=== PATIENT | male | born 1955 | race Caucasian/White ===

== ENCOUNTER 2018-11-30 12:01 | Inpatient (IN) | payer MEDICARE, SELFPAY ==
[2018-11-30] VITALS (8 sets, daily range): BP systolic 135–156; BP diastolic 61–81; PULSE 57–99; RESP 14–20; TEMP 36.4; O2SAT 99–100; BMI 16.9
[2018-11-30] MEDS: SODIUM CHLORIDE 0.9% 1,000 ML 1000 ML IV ×2 (12:38→13:22)
--- NOTE | 2018-11-30 12:46 | DI.RAD.S_ITS ---
PROCEDURE: XR CHEST 1V INDICATIONS: elevated Blood sugars TECHNIQUE: One view of the chest was acquired. COMPARISON: None. FINDINGS: Surgical changes and devices: Patient is status post median sternotomy and CABG. Lungs and pleura: No pleural effusions or pneumothorax. Lungs are clear. Mediastinum: Mediastinal contours appear normal. Heart size is normal. Bones and chest wall: No suspicious bony lesions. Overlying soft tissues appear unremarkable. IMPRESSION: No acute cardiopulmonary findings. Dictated by: Traci Marques M.D. on 11/30/2018 at 13:33 Approved by: Traci Marques M.D. on 11/30/2018 at 13:34
--- NOTE | 2018-11-30 12:52 | ED.GENADULT ---
HPI - General Adult General Chief complaint: Diabetic Problem Stated complaint: Issues with diabetes/levels Time Seen by Provider: 11/30/18 12:46 Source: patient and family () Mode of arrival: EMS Limitations: no limitations History of Present Illness HPI narrative: This is a 63-year-old male comes to the emergency department with complaint of elevated blood sugars. Patient has had weight loss pretty significantly over the last year. He has had elevated blood sugars at home he states often in the 300s. He had a dental infection with seen started on antibiotics and dexamethasone about 3 days ago. Since then his sugars have been more like 600. Patient states he does not check regularly but has been checking in the last week and they noted they were quite high. Patient has not had any fevers, he states the pain in the dental area has improved after a couple days of antibiotics and feels much better. He denies any chest pain, no shortness of breath. He denies any nausea or vomiting, he denies any diarrhea or constipation. He has been having frequent large amounts of urine. Patient is only taking metformin daily. His primary care physician was Dr. Patel through Sunday. He did also have some esophageal polyps or masses which were removed by EGD in [place] in the last 6 months. They state that that helped with choking and swallowing issues. They were found to be benign on pathology. Patient smokes daily, he drinks 2-3 alcoholic drinks daily. He denies any illicit. They were living in [place] but are currently living on a boat here in the local [place]. Related Data Home Medications Medication Instructions Recorded Confirmed aspirin [Aspir-81] 81 mg PO DAILY 11/30/18 11/30/18 atorvastatin 40 mg PO DAILY 11/30/18 11/30/18 clindamycin HCl 300 mg PO QID 11/30/18 11/30/18 dexamethasone 8 mg PO DAILY 11/30/18 11/30/18 hydrocodone-acetaminophen 1 tab PO Q6HR PRN 11/30/18 11/30/18 iron, carbonyl [Iron Chews] 30 mg PO DAILY 11/30/18 11/30/18 metformin 500 mg PO BID 11/30/18 11/30/18 Allergies Allergy/AdvReac Type Severity Reaction Status Date / Time Penicillins Allergy Intermediate Hives Verified 11/30/18 12:14 Review of Systems Review of Systems All systems reviewed & are unremarkable except as noted in HPI and below Constitutional Denies chills, Denies fever(s), Denies lethargy and Reports weakness ENT Ears, Nose, Mouth, and Throat: Reports dental pain (Improved) Cardiovascular Denies chest pain, Denies irregular heart rhythm, Denies lightheadedness, Denies palpitations, Denies dyspnea, Denies dyspnea on exertion and Denies orthopnea Respiratory Denies cough, Denies excessive phlegm production, Denies pain on inspiration, Denies pain with cough, Denies dyspnea, Denies dyspnea on exertion and Denies wheezing Gastrointestinal Gastrointestinal: Denies abdominal pain, Denies change in bowel habits, Denies diarrhea, Denies nausea and Denies vomiting Genitourinary Denies difficulty urinating, Denies dysuria, Reports urinary frequency, Denies urinary hesitancy and Denies urinary urgency Integumentary/Breasts Denies rash Neurologic Reports weakness Endocrine Reports as per HPI, Reports change in body appearance (large weight loss), Reports polyuria and Denies palpitations Allergic/Immunologic Denies wheezing PFSH Medical History Coronary artery disease (Acute) Diabetes (Acute) Esophageal polyp (Acute) High cholesterol (Acute) Iron deficiency anemia (Acute) Surgical History Hx of CABG (Acute) Stented coronary artery (Acute) Family History Mother No problems noted. Father No problems noted. Brother No problems noted. Sister No problems noted. Social History household members: spouse Smoking Status: Current every day smoker alcohol intake: current substance use type: does not use Exam Narrative Exam Narrative: GENERAL: Alert and oriented x three, elderly male, appears older than stated age. HEENT: Head normocephalic, atraumatic, EOMI, pupils reactive, face symmetric, moist mucous membranes, NECK: Supple, full range of motion CARDIOVASCULAR: Regular rate and rhythm without murmurs, rubs or gallops. RESPIRATORY: Breath sounds equal bilaterally, no wheezes rales or rhonchi. ABDOMEN: Soft, nontender. Nondistended. Normoactive bowel sounds all 4 quadrants. No guarding or rebound, rigidity, no mass : No CVA tenderness EXTREMITIES: Normal range of motion, no clubbing or edema. Neurovascularly intact NEUROLOGICAL: Cranial nerves II through XII grossly intact. Moving all extremities SKIN: Warm, dry, no petechiae, no rashes or lesions. Initial Vital Signs Initial Vital Signs: Vital Signs Temperature 97.6 F 11/30/18 12:08 Pulse Rate 84 11/30/18 12:08 Respiratory Rate 14 11/30/18 12:08 Blood Pressure 144/81 H 11/30/18 12:08 Pulse Oximetry 100 11/30/18 12:08 Course Orders Ordered: ED Orders 11/30/18 12:35 Venous Blood Gas Stat 11/30/18 12:40 Complete Blood Count AUTO DIFF Stat Comprehensive Metabolic Panel Stat Ketones (Beta-Hydroxybutyrate) Stat 11/30/18 12:45 Hemoglobin A1C % Stat 11/30/18 12:46 XR chest 1V Stat EKG-12 Lead Stat 11/30/18 13:00 Lactate (Lactic Acid) Stat 11/30/18 14:30 Arterial Blood Gas Stat 11/30/18 16:32 Education, smoking cessation ONGOING 11/30/18 16:51 Consult to Dietitian, Adult Routine Consult to Tool Clerk Routine 11/30/18 17:00 Basic Metabolic Panel Stat Magnesium Stat Phosphorous Stat Vitamin B12 Routine Acetaminophen (Tylenol) 650 mg PO Q6HR PRN PRN Reason: As Needed for Fever/Mild Pain Hydrocodone Bitart/Acetaminophen ([place] 5/325) 1 tab PO Q6H PRN PRN Reason: DENTAL PAIN Al Hydrox/Mg Hydrox/Simethicone (Maalox Plus) 30 ml PO Q6HR PRN PRN Reason: Dyspepsia Aspirin (Aspirin Ec) 81 mg PO DAILY JORGE L Atorvastatin Calcium (Lipitor) 40 mg PO DAILY [facility] Dextrose (D50w) 25 gm IV PRN PRN; Protocol PRN Reason: Hypoglycemia Heparin Sodium (Porcine) (Heparin) 5,000 unit SUBCUT BID [facility] Sodium Chloride (Normal Saline 0.9%) 1,000 mls @ 200 mls/hr IV CONT JORGE L Last Admin: 11/30/18 17:18 Dose: 200 mls/hr Cefotetan Disodium/Dextrose (Cefotan) 2 gm in 50 mls @ 100 mls/hr IV Q12H JORGE L Stop: 12/03/18 17:59 Insulin Aspart (Novolog Flexpen) 0 unit SUBCUT Q6H JORGE L; Protocol Last Admin: 11/30/18 17:18 Dose: 10 unit Insulin Glargine (Lantus Solostar (Pen)) 10 unit SUBCUT BEDTIME JORGE L Magnesium Hydroxide (Milk Of Magnesia) 30 ml PO DAILY PRN PRN Reason: Constipation Non-Formulary Medication (Iron, Carbonyl [Iron Chews]) 30 mg PO DAILY [facility] Ondansetron HCl (Zofran Odt) 4 mg PO Q8HR PRN PRN Reason: Nausea And Vomiting Last Admin: 11/30/18 17:18 Dose: 4 mg Sennosides (Senna) 17.2 mg PO BEDTIME PRN PRN Reason: Constipation Discontinued Medications Clindamycin HCl (Cleocin) 300 mg PO QID [facility] Last Admin: 11/30/18 17:17 Dose: 300 mg Heparin Sodium (Porcine) (Heparin) 5,000 unit SUBCUT Q8HR JORGE L Sodium Chloride (Normal Saline 0.9%) 1,000 mls @ 1,000 mls/hr IV BOLUS ONE Stop: 11/30/18 13:36 Last Infusion: 11/30/18 13:22 Dose: 0 mls/hr Admin: 11/30/18 12:38 Dose: 1,000 mls/hr Sodium Chloride (Normal Saline 0.9%) 1,000 mls @ 1,000 mls/hr IV BOLUS ONE Stop: 11/30/18 13:45 Last Infusion: 11/30/18 14:55 Dose: 0 mls/hr Admin: 11/30/18 13:22 Dose: 1,000 mls/hr Insulin Human Regular 100 unit (/ Sodium Chloride) 100 mls @ 6 mls/hr IV TITRATE JORGE L; Protocol Last Admin: 11/30/18 16:12 Dose: Sodium Chloride (Normal Saline 0.9%) 1,000 mls @ 200 mls/hr IV CONT JORGE L Last Infusion: 11/30/18 16:12 Dose: 0 mls/hr Admin: 11/30/18 14:57 Dose: 200 mls/hr Insulin Human Regular (Humulin R) 10 unit IV NOW ONE Stop: 11/30/18 14:32 Last Admin: 11/30/18 14:54 Dose: 10 unit Vital Signs - 8 hr 11/30/18 12:08 11/30/18 12:40 11/30/18 13:30 Temperature 97.6 F Pulse Rate 84 78 72 Respiratory Rate 14 18 Blood Pressure 144/81 H Blood Pressure [Right Arm] 143/73 H 138/66 Pulse Oximetry 100 100 100 11/30/18 14:30 11/30/18 15:00 11/30/18 15:30 Temperature Pulse Rate 60 75 99 H Respiratory Rate Blood Pressure Blood Pressure [Right Arm] 152/61 H 153/65 H 135/67 Pulse Oximetry 100 100 100 11/30/18 16:02 Temperature Pulse Rate 76 Respiratory Rate 20 Blood Pressure Blood Pressure [Right Arm] 156/75 H Pulse Oximetry 99 Medical Decision Making Lab Data Lab results reviewed: Yes I reviewed the patient's lab results. Result diagrams: 11/30/18 12:40 11/30/18 17:00 Lab Results 11/30/18 11/30/18 11/30/18 Range/Units 12:35 12:40 12:40 WBC 8.9 (4.5-11.0) X10^3/uL RBC 3.79 L (4.5-5.9) X10^6/uL Hgb 12.6 L (13.5-17.5) g/dL Hct 38.2 L (41-53) % MCV 100.9 H (80-100) fL MCH 33.2 (26-34) PG MCHC 33.0 (30-36) % RDW 12.8 (11.6-14.8) % Plt Count 276 (150-400) X10^3/uL Neut % (Auto) 87.0 H (50-75) % Lymph % (Auto) 7.4 L (25-40) % [place] % (Auto) 5.4 (3-14) % Eos % (Auto) 0.0 L (2-4) % Baso % (Auto) 0.2 (0-2) % Neut # (Auto) 7700 H (2043-7458) /uL VBG pH 7.16 L* (7.33-7.43) VBG pCO2 27.2 L (45-50) mmHg VBG pO2 32 L (35-45) mmHg VBG HCO3 10 L (23-28) mmol/L VBG Total CO2 11 L (24-29) mmol/L VBG O2 Saturation 48 L (70-75) % VBG Base Excess -19.0 L (0-4) mmol/L Sodium 132 L (137-145) mmol/L Potassium 5.5 H (3.4-5.1) mmol/L Chloride 94 L (98-107) mmol/L Carbon Dioxide 10 L (22-32) mmol/L BUN 56 H (9-20) mg/dL Creatinine 1.10 (0.66-1.25) mg/dL Estimated GFR > 60.0 (>60) mL/min BUN/Creatinine Ratio 50.9 H (6-22) Glucose 577 H* (80-110) mg/dL Hemoglobin A1c (4.0-6.0) % Lactate (0.7-2.1) mmol/L Calcium 9.7 (8.4-10.2) mg/dL Phosphorus (2.3-3.7) mg/dL Magnesium (1.6-2.3) mg/dL Total Bilirubin 0.6 (0.2-1.3) mg/dL AST 18 (17-59) IU/L ALT 22 (21-72) IU/L Alkaline Phosphatase 94 (38-126) U/L Total Protein 7.7 (6.3-8.2) g/dL Albumin 4.7 (3.5-5.0) g/dL Globulin 3.0 (1.7-4.1) g/dL Albumin/Globulin Ratio 1.6 (1.0-2.8) Ketones 9.62 H (<0.27) mmol/L 11/30/18 11/30/18 11/30/18 Range/Units 12:45 13:00 17:00 WBC (4.5-11.0) X10^3/uL RBC (4.5-5.9) X10^6/uL Hgb (13.5-17.5) g/dL Hct (41-53) % MCV (80-100) fL MCH (26-34) PG MCHC (30-36) % RDW (11.6-14.8) % Plt Count (150-400) X10^3/uL Neut % (Auto) (50-75) % Lymph % (Auto) (25-40) % [place] % (Auto) (3-14) % Eos % (Auto) (2-4) % Baso % (Auto) (0-2) % Neut # (Auto) (7503-8007) /uL VBG pH (7.33-7.43) VBG pCO2 (45-50) mmHg VBG pO2 (35-45) mmHg VBG HCO3 (23-28) mmol/L VBG Total CO2 (24-29) mmol/L VBG O2 Saturation (70-75) % VBG Base Excess (0-4) mmol/L Sodium 135 L (137-145) mmol/L Potassium 4.9 (3.4-5.1) mmol/L Chloride 101 (98-107) mmol/L Carbon Dioxide 11 L (22-32) mmol/L BUN 51 H (9-20) mg/dL Creatinine 0.90 (0.66-1.25) mg/dL Estimated GFR > 60.0 (>60) mL/min BUN/Creatinine Ratio 56.7 H (6-22) Glucose 369 H D (80-110) mg/dL Hemoglobin A1c 13.8 H (4.0-6.0) % Lactate 1.2 (0.7-2.1) mmol/L Calcium 9.1 (8.4-10.2) mg/dL Phosphorus 4.9 H (2.3-3.7) mg/dL Magnesium 2.1 (1.6-2.3) mg/dL Total Bilirubin (0.2-1.3) mg/dL AST (17-59) IU/L ALT (21-72) IU/L Alkaline Phosphatase (38-126) U/L Total Protein (6.3-8.2) g/dL Albumin (3.5-5.0) g/dL Globulin (1.7-4.1) g/dL Albumin/Globulin Ratio (1.0-2.8) Ketones (<0.27) mmol/L Point of Care Testing Glucose POC 342 Point of care testing: Point of Care Testing Glucose POC 342 Imaging Data Chest x-ray: Radiologist's impression: [address] [address] XRay Report Signed Patient: Klever Emmanuel MR#: [id number] : 1955 Acct:[id number] Age/Sex: 63 / M Date of Service: 11/30/18 Loc: ED Accession Number: [id number] Procedure: XR chest 1V Ordering Provider: Anais Toro D.O. PROCEDURE: XR CHEST 1V INDICATIONS: elevated Blood sugars TECHNIQUE: One view of the chest was acquired. COMPARISON: None. FINDINGS: Surgical changes and devices: Patient is status post median sternotomy and CABG. Lungs and pleura: No pleural effusions or pneumothorax. Lungs are clear. Mediastinum: Mediastinal contours appear normal. Heart size is normal. Bones and chest wall: No suspicious bony lesions. Overlying soft tissues appear unremarkable. IMPRESSION: No acute cardiopulmonary findings. Dictated by: Traci Marques M.D. on 11/30/2018 at 13:33 Approved by: Traci Marques M.D. on 11/30/2018 at 13:34 ECG Data Attestation: I personally reviewed and interpreted this ECG as follows: Interpretation: Sinus rhythm with a ventricular rate of 72 P are interval 170 QRS of 89 and QTC of 423. No ST elevation depression noted. MDM Narrative Medical decision making narrative: Patient's point of care urine is still pending. Suspects that he is typically hyperglycemic but was started on 8 mg of dexamethasone daily 3 days ago and this likely pushed him into worsening his hyperglycemia. Technically he does be DKA criteria pH is 7.1 on VBG, patient has an anion gap of 28, his bicarb is 10 with a blood sugar in the 500s. After 2 L patient's repeat blood sugar is 454. He has not urinated yet. Patient's chest x-ray is negative, the rest of his lab work does not show an elevated white count and his dental infection seems to be improving spoke with Dr. akhtar from hospitalist service she would like instead of starting an insulin drip to do 10 units of insulin regular IV put patient on the floor and monitor and treat as a floor patient. Discharge Plan Departure Patient Disposition: Admitted as Observation Clinical Impression: DKA (diabetic ketoacidoses) Discharge Date/Time: 11/30/18 16:08 Interventions: ED Discharge Assessment Last Done: 11/30/18 16:08 Admit Date/Time: 11/30/18 14:46 Admit Provider: Chantal Burrell
--- NOTE | 2018-11-30 13:06 | ED_ITS ---
HPI - General Adult General Chief complaint: Diabetic Problem Stated complaint: Issues with diabetes/levels Time Seen by Provider: 11/30/18 12:46 Source: patient and family () Mode of arrival: EMS Limitations: no limitations History of Present Illness HPI narrative: This is a 63-year-old male comes to the emergency department with complaint of elevated blood sugars. Patient has had weight loss pretty significantly over the last year. He has had elevated blood sugars at home he states often in the 300s. He had a dental infection with seen started on antibiotics and dexamethasone about 3 days ago. Since then his sugars have been more like 600. Patient states he does not check regularly but has been checking in the last week and they noted they were quite high. Patient has not had any fevers, he states the pain in the dental area has improved after a couple days of antibiotics and feels much better. He denies any chest pain, no shortness of breath. He denies any nausea or vomiting, he denies any diarrhea or constipation. He has been having frequent large amounts of urine. Patient is only taking metformin daily. His primary care physician was Dr. Patel through Sunday. He did also have some esophageal polyps or masses which were removed by EGD in [place] in the last 6 months. They state that that helped with choking and swallowing issues. They were found to be benign on pathology. Patient smokes daily, he drinks 2-3 alcoholic drinks daily. He denies any illicit. They were living in [place] but are currently living on a boat here in the local [place]. Related Data Home Medications Medication Instructions Recorded Confirmed aspirin [Aspir-81] 81 mg PO DAILY 11/30/18 11/30/18 atorvastatin 40 mg PO DAILY 11/30/18 11/30/18 clindamycin HCl 300 mg PO QID 11/30/18 11/30/18 dexamethasone 8 mg PO DAILY 11/30/18 11/30/18 hydrocodone-acetaminophen 1 tab PO Q6HR PRN 11/30/18 11/30/18 iron, carbonyl [Iron Chews] 30 mg PO DAILY 11/30/18 11/30/18 metformin 500 mg PO BID 11/30/18 11/30/18 Allergies Allergy/AdvReac Type Severity Reaction Status Date / Time Penicillins Allergy Intermediate Hives Verified 11/30/18 12:14 Review of Systems Review of Systems All systems reviewed & are unremarkable except as noted in HPI and below Constitutional Denies chills, Denies fever(s), Denies lethargy and Reports weakness ENT Ears, Nose, Mouth, and Throat: Reports dental pain (Improved) Cardiovascular Denies chest pain, Denies irregular heart rhythm, Denies lightheadedness, Denies palpitations, Denies dyspnea, Denies dyspnea on exertion and Denies orthopnea Respiratory Denies cough, Denies excessive phlegm production, Denies pain on inspiration, Denies pain with cough, Denies dyspnea, Denies dyspnea on exertion and Denies wheezing Gastrointestinal Gastrointestinal: Denies abdominal pain, Denies change in bowel habits, Denies diarrhea, Denies nausea and Denies vomiting Genitourinary Denies difficulty urinating, Denies dysuria, Reports urinary frequency, Denies urinary hesitancy and Denies urinary urgency Integumentary/Breasts Denies rash Neurologic Reports weakness Endocrine Reports as per HPI, Reports change in body appearance (large weight loss), Reports polyuria and Denies palpitations Allergic/Immunologic Denies wheezing PFSH Medical History Coronary artery disease (Acute) Diabetes (Acute) Esophageal polyp (Acute) High cholesterol (Acute) Iron deficiency anemia (Acute) Surgical History Hx of CABG (Acute) Stented coronary artery (Acute) Family History Mother No problems noted. Father No problems noted. Brother No problems noted. Sister No problems noted. Social History household members: spouse Smoking Status: Current every day smoker alcohol intake: current substance use type: does not use Exam Narrative Exam Narrative: GENERAL: Alert and oriented x three, elderly male, appears older than stated age. HEENT: Head normocephalic, atraumatic, EOMI, pupils reactive, face symmetric, moist mucous membranes, NECK: Supple, full range of motion CARDIOVASCULAR: Regular rate and rhythm without murmurs, rubs or gallops. RESPIRATORY: Breath sounds equal bilaterally, no wheezes rales or rhonchi. ABDOMEN: Soft, nontender. Nondistended. Normoactive bowel sounds all 4 quadrants. No guarding or rebound, rigidity, no mass : No CVA tenderness EXTREMITIES: Normal range of motion, no clubbing or edema. Neurovascularly intact NEUROLOGICAL: Cranial nerves II through XII grossly intact. Moving all extremities SKIN: Warm, dry, no petechiae, no rashes or lesions. Initial Vital Signs Initial Vital Signs: Vital Signs Temperature 97.6 F 11/30/18 12:08 Pulse Rate 84 11/30/18 12:08 Respiratory Rate 14 11/30/18 12:08 Blood Pressure 144/81 H 11/30/18 12:08 Pulse Oximetry 100 11/30/18 12:08 Course Orders Ordered: ED Orders 11/30/18 12:35 Venous Blood Gas Stat 11/30/18 12:40 Complete Blood Count AUTO DIFF Stat Comprehensive Metabolic Panel Stat Ketones (Beta-Hydroxybutyrate) Stat 11/30/18 12:45 Hemoglobin A1C % Stat 11/30/18 12:46 XR chest 1V Stat EKG-12 Lead Stat 11/30/18 13:00 Lactate (Lactic Acid) Stat 11/30/18 14:30 Arterial Blood Gas Stat 11/30/18 16:32 Education, smoking cessation ONGOING 11/30/18 16:51 Consult to Dietitian, Adult Routine Consult to [place] Routine 11/30/18 17:00 Basic Metabolic Panel Stat Magnesium Stat Phosphorous Stat Vitamin B12 Routine Acetaminophen (Tylenol) 650 mg PO Q6HR PRN PRN Reason: As Needed for Fever/Mild Pain Hydrocodone Bitart/Acetaminophen ([place] 5/325) 1 tab PO Q6H PRN PRN Reason: DENTAL PAIN Al Hydrox/Mg Hydrox/Simethicone (Maalox Plus) 30 ml PO Q6HR PRN PRN Reason: Dyspepsia Aspirin (Aspirin Ec) 81 mg PO DAILY JORGE L Atorvastatin Calcium (Lipitor) 40 mg PO DAILY [facility] Dextrose (D50w) 25 gm IV PRN PRN; Protocol PRN Reason: Hypoglycemia Heparin Sodium (Porcine) (Heparin) 5,000 unit SUBCUT BID [facility] Sodium Chloride (Normal Saline 0.9%) 1,000 mls @ 200 mls/hr IV CONT JORGE L Last Admin: 11/30/18 17:18 Dose: 200 mls/hr Cefotetan Disodium/Dextrose (Cefotan) 2 gm in 50 mls @ 100 mls/hr IV Q12H JORGE L Stop: 12/03/18 17:59 Insulin Aspart (Novolog Flexpen) 0 unit SUBCUT Q6H JORGE L; Protocol Last Admin: 11/30/18 17:18 Dose: 10 unit Insulin Glargine (Lantus Solostar (Pen)) 10 unit SUBCUT BEDTIME JORGE L Magnesium Hydroxide (Milk Of Magnesia) 30 ml PO DAILY PRN PRN Reason: Constipation Non-Formulary Medication (Iron, Carbonyl [Iron Chews]) 30 mg PO DAILY [facility] Ondansetron HCl (Zofran Odt) 4 mg PO Q8HR PRN PRN Reason: Nausea And Vomiting Last Admin: 11/30/18 17:18 Dose: 4 mg Sennosides (Senna) 17.2 mg PO BEDTIME PRN PRN Reason: Constipation Discontinued Medications Clindamycin HCl (Cleocin) 300 mg PO QID [facility] Last Admin: 11/30/18 17:17 Dose: 300 mg Heparin Sodium (Porcine) (Heparin) 5,000 unit SUBCUT Q8HR JORGE L Sodium Chloride (Normal Saline 0.9%) 1,000 mls @ 1,000 mls/hr IV BOLUS ONE Stop: 11/30/18 13:36 Last Infusion: 11/30/18 13:22 Dose: 0 mls/hr Admin: 11/30/18 12:38 Dose: 1,000 mls/hr Sodium Chloride (Normal Saline 0.9%) 1,000 mls @ 1,000 mls/hr IV BOLUS ONE Stop: 11/30/18 13:45 Last Infusion: 11/30/18 14:55 Dose: 0 mls/hr Admin: 11/30/18 13:22 Dose: 1,000 mls/hr Insulin Human Regular 100 unit (/ Sodium Chloride) 100 mls @ 6 mls/hr IV TITRATE JORGE L; Protocol Last Admin: 11/30/18 16:12 Dose: Sodium Chloride (Normal Saline 0.9%) 1,000 mls @ 200 mls/hr IV CONT JORGE L Last Infusion: 11/30/18 16:12 Dose: 0 mls/hr Admin: 11/30/18 14:57 Dose: 200 mls/hr Insulin Human Regular (Humulin R) 10 unit IV NOW ONE Stop: 11/30/18 14:32 Last Admin: 11/30/18 14:54 Dose: 10 unit Vital Signs - 8 hr 11/30/18 12:08 11/30/18 12:40 11/30/18 13:30 Temperature 97.6 F Pulse Rate 84 78 72 Respiratory Rate 14 18 Blood Pressure 144/81 H Blood Pressure [Right Arm] 143/73 H 138/66 Pulse Oximetry 100 100 100 11/30/18 14:30 11/30/18 15:00 11/30/18 15:30 Temperature Pulse Rate 60 75 99 H Respiratory Rate Blood Pressure Blood Pressure [Right Arm] 152/61 H 153/65 H 135/67 Pulse Oximetry 100 100 100 11/30/18 16:02 Temperature Pulse Rate 76 Respiratory Rate 20 Blood Pressure Blood Pressure [Right Arm] 156/75 H Pulse Oximetry 99 Medical Decision Making Lab Data Lab results reviewed: Yes I reviewed the patient's lab results. Result diagrams: 11/30/18 12:40 11/30/18 17:00 Lab Results 11/30/18 11/30/18 11/30/18 Range/Units 12:35 12:40 12:40 WBC 8.9 (4.5-11.0) X10^3/uL RBC 3.79 L (4.5-5.9) X10^6/uL Hgb 12.6 L (13.5-17.5) g/dL Hct 38.2 L (41-53) % MCV 100.9 H (80-100) fL MCH 33.2 (26-34) PG MCHC 33.0 (30-36) % RDW 12.8 (11.6-14.8) % Plt Count 276 (150-400) X10^3/uL Neut % (Auto) 87.0 H (50-75) % Lymph % (Auto) 7.4 L (25-40) % [place] % (Auto) 5.4 (3-14) % Eos % (Auto) 0.0 L (2-4) % Baso % (Auto) 0.2 (0-2) % Neut # (Auto) 7700 H (3839-8851) /uL VBG pH 7.16 L* (7.33-7.43) VBG pCO2 27.2 L (45-50) mmHg VBG pO2 32 L (35-45) mmHg VBG HCO3 10 L (23-28) mmol/L VBG Total CO2 11 L (24-29) mmol/L VBG O2 Saturation 48 L (70-75) % VBG Base Excess -19.0 L (0-4) mmol/L Sodium 132 L (137-145) mmol/L Potassium 5.5 H (3.4-5.1) mmol/L Chloride 94 L (98-107) mmol/L Carbon Dioxide 10 L (22-32) mmol/L BUN 56 H (9-20) mg/dL Creatinine 1.10 (0.66-1.25) mg/dL Estimated GFR > 60.0 (>60) mL/min BUN/Creatinine Ratio 50.9 H (6-22) Glucose 577 H* (80-110) mg/dL Hemoglobin A1c (4.0-6.0) % Lactate (0.7-2.1) mmol/L Calcium 9.7 (8.4-10.2) mg/dL Phosphorus (2.3-3.7) mg/dL Magnesium (1.6-2.3) mg/dL Total Bilirubin 0.6 (0.2-1.3) mg/dL AST 18 (17-59) IU/L ALT 22 (21-72) IU/L Alkaline Phosphatase 94 (38-126) U/L Total Protein 7.7 (6.3-8.2) g/dL Albumin 4.7 (3.5-5.0) g/dL Globulin 3.0 (1.7-4.1) g/dL Albumin/Globulin Ratio 1.6 (1.0-2.8) Ketones 9.62 H (<0.27) mmol/L 11/30/18 11/30/18 11/30/18 Range/Units 12:45 13:00 17:00 WBC (4.5-11.0) X10^3/uL RBC (4.5-5.9) X10^6/uL Hgb (13.5-17.5) g/dL Hct (41-53) % MCV (80-100) fL MCH (26-34) PG MCHC (30-36) % RDW (11.6-14.8) % Plt Count (150-400) X10^3/uL Neut % (Auto) (50-75) % Lymph % (Auto) (25-40) % [place] % (Auto) (3-14) % Eos % (Auto) (2-4) % Baso % (Auto) (0-2) % Neut # (Auto) (0884-4506) /uL VBG pH (7.33-7.43) VBG pCO2 (45-50) mmHg VBG pO2 (35-45) mmHg VBG HCO3 (23-28) mmol/L VBG Total CO2 (24-29) mmol/L VBG O2 Saturation (70-75) % VBG Base Excess (0-4) mmol/L Sodium 135 L (137-145) mmol/L Potassium 4.9 (3.4-5.1) mmol/L Chloride 101 (98-107) mmol/L Carbon Dioxide 11 L (22-32) mmol/L BUN 51 H (9-20) mg/dL Creatinine 0.90 (0.66-1.25) mg/dL Estimated GFR > 60.0 (>60) mL/min BUN/Creatinine Ratio 56.7 H (6-22) Glucose 369 H D (80-110) mg/dL Hemoglobin A1c 13.8 H (4.0-6.0) % Lactate 1.2 (0.7-2.1) mmol/L Calcium 9.1 (8.4-10.2) mg/dL Phosphorus 4.9 H (2.3-3.7) mg/dL Magnesium 2.1 (1.6-2.3) mg/dL Total Bilirubin (0.2-1.3) mg/dL AST (17-59) IU/L ALT (21-72) IU/L Alkaline Phosphatase (38-126) U/L Total Protein (6.3-8.2) g/dL Albumin (3.5-5.0) g/dL Globulin (1.7-4.1) g/dL Albumin/Globulin Ratio (1.0-2.8) Ketones (<0.27) mmol/L Point of Care Testing Glucose POC 342 Point of care testing: Point of Care Testing Glucose POC 342 Imaging Data Chest x-ray: Radiologist's impression: [address] [address] XRay Report Signed Patient: Klever Emmanuel MR#: [id number] : 1955 Acct:[id number] Age/Sex: 63 / M Date of Service: 11/30/18 Loc: ED Accession Number: [id number] Procedure: XR chest 1V Ordering Provider: Anais Toro D.O. PROCEDURE: XR CHEST 1V INDICATIONS: elevated Blood sugars TECHNIQUE: One view of the chest was acquired. COMPARISON: None. FINDINGS: Surgical changes and devices: Patient is status post median sternotomy and CABG. Lungs and pleura: No pleural effusions or pneumothorax. Lungs are clear. Mediastinum: Mediastinal contours appear normal. Heart size is normal. Bones and chest wall: No suspicious bony lesions. Overlying soft tissues appear unremarkable. IMPRESSION: No acute cardiopulmonary findings. Dictated by: Traci Marques M.D. on 11/30/2018 at 13:33 Approved by: Traci Marques M.D. on 11/30/2018 at 13:34 ECG Data Attestation: I personally reviewed and interpreted this ECG as follows: Interpretation: Sinus rhythm with a ventricular rate of 72 P are interval 170 QRS of 89 and QTC of 423. No ST elevation depression noted. MDM Narrative Medical decision making narrative: Patient's point of care urine is still pending. Suspects that he is typically hyperglycemic but was started on 8 mg of dexamethasone daily 3 days ago and this likely pushed him into worsening his hyperglycemia. Technically he does be DKA criteria pH is 7.1 on VBG, patient has an anion gap of 28, his bicarb is 10 with a blood sugar in the 500s. After 2 L patient's repeat blood sugar is 454. He has not urinated yet. Patient's chest x-ray is negative, the rest of his lab work does not show an elevated white count and his dental infection seems to be improving spoke with Dr. akhtar from hospitalist service she would like instead of starting an insulin drip to do 10 units of insulin regular IV put patient on the floor and monitor and treat as a floor patient. Discharge Plan Departure Patient Disposition: Admitted as Observation Clinical Impression: DKA (diabetic ketoacidoses) Discharge Date/Time: 11/30/18 16:08 Interventions: ED Discharge Assessment Last Done: 11/30/18 16:08 Admit Date/Time: 11/30/18 14:46 Admit Provider: Chantal Burrell
[2018-11-30 13:21] LABS: Add Manual Diff / Slide Review NO; Basophils Percent Auto 0.2 % (0-2); Hematocrit 38.2 % (41-53); Hemoglobin 12.6 g/dL (13.5-17.5); Lymphocytes Percent Auto 7.4 % (25-40); Mean Corpuscular Hemoglobin 33.2 PG (26-34); Mean Corpuscular Volume 100.9 fL (80-100); Monocytes Percent Auto 5.4 % (3-14); Neutrophils Absolute Auto 7700 /uL (1500-7000); Platelet Count 276 X10^3/uL (150-400); Red Blood Cell Count 3.79 X10^6/uL (4.5-5.9); Red Cell Distribution Width 12.8 % (11.6-14.8); White Blood Cell Count 8.9 X10^3/uL (4.5-11.0)
[2018-11-30 13:28] LABS: HEMOLYSIS < 15 (0-50)
[2018-11-30 13:33] LABS: Alanine Aminotransferase 22 IU/L (21-72); Albumin 4.7 g/dL (3.5-5.0); Albumin Globulin Ratio 1.6 (1.0-2.8); Alkaline Phosphatase 94 U/L (38-126); Aspartate Aminotransferase 18 IU/L (17-59); BUN Creatinine Ratio 50.9 (6-22); Bilirubin Total 0.6 mg/dL (0.2-1.3); Blood Urea Nitrogen 56 mg/dL (9-20); Calcium 9.7 mg/dL (8.4-10.2); Carbon Dioxide 10 mmol/L (22-32); Chloride 94 mmol/L (98-107); Estimated Glomerular Filt Rate > 60.0 mL/min (>60); Sodium 132 mmol/L (137-145); Total Protein 7.7 g/dL (6.3-8.2)
[2018-11-30 13:34] LABS: Potassium 5.5 mmol/L (3.4-5.1)
[2018-11-30 13:35] LABS: Glucose 577 mg/dL (80-110)
[2018-11-30 13:42] LABS: Lactate (Lactic Acid) 1.2 mmol/L (0.7-2.1)
[2018-11-30 13:45] LABS: Ketones (Beta-Hydroxybutyrate) 9.62 mmol/L (<0.27)
--- NOTE | 2018-11-30 14:42 | PM.HP.1 ---
History of Present Illness Date Patient Seen: 11/30/18 Chief complaint: Issues with diabetes/levels Narrative: Klever Emmanuel this 63-year-old male with a past medical history significant for coronary artery disease status post CABG x 5 vessels, hyperlipidemia, and diabetes mellitus type 2, non-insulin using who presented for elevated blood glucose and progressive worsening unsteadiness, dizziness and fatigue. The patient reports that he felt dizzy and ?wobbly? for the last 2 days which has progressively worsened. He recently over the last several weeks has been checking his blood glucose at home and usually is in the 300s. He is only on metformin 500 mg twice daily for glycemic control. He recently had a hemoglobin A1c performed at his PCP, Dr. Patel, and reports it was 14%. He recently had a dental felicita that became infected and was started on clindamycin 300 mg 4 times daily for 1 week and dexamethasone 8 mg daily for 3 days. He has completed the dexamethasone. He is scheduled to have a root canal at the beginning of December. His reports his dental infection and associated dental pain has improved significantly. His blood sugars while on glucocorticoids have been in the 600s per the ED physician's note. He denies headache, vision changes, throat pain, chest pain, shortness of breath, abdominal pain, nausea, vomiting, fever, chills, dysuria or diarrhea. He endorses polydipsia, polyuria and chronic constipation and typically has a bowel movement every other day. He did have an episode of nausea and vomiting in the ED which has resolved. Of note, he recently had an esophageal polypectomy 2 weeks ago in which the polyps were found to be benign. However, the patient has had significant weight loss likely due to decreased p.o. intake from dysphagia. He reports he has lost approximately 40 lb unintentionally over the last year. Since removal of the esophageal polyps he has had resolution of his dysphagia but continues to have a very poor appetite. He is not due for a colonoscopy for 1-2 more years. No family history of cancers. He is an everyday smoker. He also consumes alcohol 1-2 beverages a day of bourbon and 7 up. He denies any history of alcohol withdrawal, delirium tremens or alcohol withdrawal seizures. The patient and his were living in [place] but are currently living on a boat here in the local [place]. He is actively in search of a PCP locally. Patient History Medical History Coronary artery disease (Acute) Diabetes (Acute) Esophageal polyp (Acute) High cholesterol (Acute) Iron deficiency anemia (Acute) Surgical History Hx of CABG (Acute) Stented coronary artery (Acute) Family & Social History Safety & Behavioral: Feels Safe in Current Yes Environment The patient has been for 30 years. He has no children. He is retired and worked in the television industry for 50 years. He and his live locally on a boat with his . Tobacco & Substance use: Smoking Status Current every day smoker alcohol intake current alcohol intake frequency 3 or more drinks per day Substance Use Type does not use Meds Home Medications Medication Instructions Recorded Confirmed Type aspirin [Aspir-81] 81 mg PO DAILY 11/30/18 11/30/18 History atorvastatin 40 mg PO DAILY 11/30/18 11/30/18 History clindamycin HCl 300 mg PO QID 11/30/18 11/30/18 History dexamethasone 8 mg PO DAILY 11/30/18 11/30/18 History hydrocodone-acetaminophen 1 tab PO Q6HR PRN 11/30/18 11/30/18 History iron, carbonyl [Iron Chews] 30 mg PO DAILY 11/30/18 11/30/18 History metformin 500 mg PO BID 11/30/18 11/30/18 History Allergies Allergy/AdvReac Type Severity Reaction Status Date / Time Penicillins Allergy Intermediate Hives Verified 11/30/18 12:14 Review of Systems Review of Systems A 10 system comprehensive review of systems was conducted with the patient and found to be negative except as above in the History of Present Illness. Exam Vital Signs (past 8 hours): - 11/30/18 12:08 11/30/18 12:40 11/30/18 13:30 Temperature 97.6 F Pulse Rate 84 78 72 Respiratory Rate 14 18 Blood Pressure 144/81 H Blood Pressure [Right Arm] 143/73 H 138/66 Pulse Oximetry 100 100 100 Oxygen Delivery Method Room Air Narrative Exam Narrative: General: Middle-aged thin gentleman sitting in bed, in no acute distress, appears older than stated age, appropriately interactive. HEENT: Normocephalic, atraumatic. External ears without defect. Pupils equal, round, and reactive to light. Anicteric sclerae, moist conjunctivae, and no lid lag. Oropharynx free of erythema and cobble stoning with moist mucosa. Poor dentition. Neck: Supple with full range of motion. No lymphadenopathy or thyromegaly. Cardiovascular: Regular rate and rhythm without murmurs, rubs, or gallops appreciated. Scar on anterior chest. Pulmonary: Clear to auscultation bilaterally without crackles, wheezes, or rhonchi. Normal respiratory effort with no use of accessory muscles. Abdomen: Soft, bowel sounds present, nontender, nondistended. No hepatosplenomegaly or masses appreciated. Extremities: No clubbing, cyanosis, or edema. Skin: Normal temperature, turgor, and texture; no rash, ulcers, or subcutaneous nodules appreciated. Neurological: Cranial nerves grossly intact. Normal muscle strength, tone, and bulk. Reflexes, coordination, and sensory function within normal limits. No known gait impairment. Psychiatric: Normal mood and affect. Alert and oriented to person, place, and time. Objective Labs Result Diagrams: 11/30/18 12:40 11/30/18 17:00 Labs: Laboratory Results - last 24 hr 11/30/18 11/30/18 11/30/18 12:40 12:40 13:00 WBC 8.9 RBC 3.79 L Hgb 12.6 L Hct 38.2 L MCV 100.9 H MCH 33.2 MCHC 33.0 RDW 12.8 Plt Count 276 Neut % (Auto) 87.0 H Lymph % (Auto) 7.4 L [place] % (Auto) 5.4 Eos % (Auto) 0.0 L Baso % (Auto) 0.2 Neut # (Auto) 7700 H Sodium 132 L Potassium 5.5 H Chloride 94 L Carbon Dioxide 10 L BUN 56 H Creatinine 1.10 Estimated GFR > 60.0 BUN/Creatinine Ratio 50.9 H Glucose 577 H* Lactate 1.2 Calcium 9.7 Total Bilirubin 0.6 AST 18 ALT 22 Alkaline Phosphatase 94 Total Protein 7.7 Albumin 4.7 Globulin 3.0 Albumin/Globulin Ratio 1.6 Ketones 9.62 H Assessment & Plan Plan: Assessment/Plan Narrative: Klever Emmanuel this 63-year-old male with a past medical history significant for coronary artery disease status post CABG, hyperlipidemia, and diabetes mellitus type 2, non-insulin using who presented for elevated blood glucose and was admitted for diabetic ketoacidosis. 1. Acute DKA, present on admission. Active. -Likely secondary to dexamethasone 8 mg daily and dental felicita/infection. -Initial blood glucose 577 with an anion gap of 28. Ketones 9.62. -VBG demonstrated: PH 7.16 (corrected to 7.2), pCO2 27.2, HCO3 10. -Monitor electrolytes and anion gap with BMP every 4 hr until anion gap has closed. -Blood glucose improved with administration of 2 L NS boluses to 454. Continue IV fluids with NS at 200 mL/hr and will titrate down as anion gap closes. -Ordered regular insulin 10 units IV x1 and blood glucose has improved to 337. Continue Accu-Checks every ACHS and will start long-acting insulin with Lantus 10 units this evening with high-dose correctional scale insulin. 2. Acute anion gap metabolic acidosis, present on admission. Active. -Continue to monitor BMP every 4 hr until anion gap is closed. Lactate normal at 1.9 -Treat DKA as above. 3. Recent dental infection, present on admission. Stable. -Patient has been on clindamycin 300 mg 4 times daily. Will start cefotetan 2 g every 12 hr. -Patient completed 3 day course of dexamethasone. 4. Diabetes mellitus type 2, non-insulin using, present on admission. Active. -Patient reports last hemoglobin A1c was. Ordered hemoglobin A1c, pending. -Held metformin. Will restart prior to discharge. -Ordered regular insulin 10 units IV x1 and blood glucose has improved to 337. Continue Accu-Checks every ACHS and will start long-acting insulin with Lantus 10 units this evening with high-dose correctional scale insulin. 5. Coronary artery disease status post CABG, chronic, present on admission. Presumed stable. -Continue aspirin 81 mg daily and atorvastatin 40 mg daily. 6. Hyperlipidemia, chronic, present on admission. Presumed stable. -Continue atorvastatin 40 mg daily. 7. Underweight, chronic, present on admission. Stable. -Patient reports slow weight loss of approximately 40 lb unintentionally over the last year. Has a history of esophageal polyps removed 2 weeks ago which are benign but limiting p.o. intake due to dysphagia. -Initial BMI 16.9. -Ordered nutritional consultation to discuss caloric intake. 8. Tobacco use disorder, present on admission. Active. -Patient smokes a half pack a day for 50+ years. -Counseled patient on smoking cessation. Will provide Nicoderm patch if needed for nicotine withdrawal. 9. Iron deficiency anemia, chronic, present on admission. Presumed stable. -History of iron deficiency anemia but MCV elevated at 100.9. Will check B12 level with history of chronic alcohol use. -No overt signs of bleeding. Will monitor hemoglobin and hematocrit daily. -Continue iron supplementation 30 mg daily. Patient is admitted under inpatient status with expected length of stay greater than 2 midnights due to severity of presenting symptoms, risk of adverse event, and complexity of treatment plan.
[2018-11-30] MEDS: INSULIN REGULAR 100 UNIT/ML 3 ML VIAL 10 UNIT IV (14:54)
[2018-11-30] MEDS: SODIUM CHLORIDE 0.9% 1,000 ML 200 ML IV ×3 (14:57→21:45)
[2018-11-30 14:59] LABS: HCO3 VBG 10 mmol/L (23-28); PCO2 VBG 27.2 mmHg (45-50); PO2 VBG 32 mmHg (35-45); Total CO2 VBG 11 mmol/L (24-29); pH VBG 7.16 (7.33-7.43)
[2018-11-30 15:00] LABS: Oxygen Saturation VBG 48 % (70-75)
[2018-11-30 15:16] LABS: Hemoglobin A1C% w Est Avg Glu 13.8 % (4.0-6.0)
[2018-11-30] MEDS: CLINDAMYCIN 150 MG CAPSULE 300 MG PO (17:17)
[2018-11-30] MEDS: INSULIN ASPART 100 UNIT/ML INSULN PEN SUBCUT ×2 (17:18→22:11)
[2018-11-30] MEDS: ONDANSETRON 4 MG ODT PO (17:18)
[2018-11-30 17:25] LABS: BUN Creatinine Ratio 56.7 (6-22); Blood Urea Nitrogen 51 mg/dL (9-20); Calcium 9.1 mg/dL (8.4-10.2); Carbon Dioxide 11 mmol/L (22-32); Chloride 101 mmol/L (98-107); Estimated Glomerular Filt Rate > 60.0 mL/min (>60); Glucose 369 mg/dL (80-110); HEMOLYSIS < 15 (0-50); Magnesium 2.1 mg/dL (1.6-2.3); Phosphorous 4.9 mg/dL (2.3-3.7); Potassium 4.9 mmol/L (3.4-5.1); Sodium 135 mmol/L (137-145)
[2018-11-30] MEDS: MAG HYDROX/ALUM/SIMETH 30 ML UDC PO (19:07)
[2018-11-30] MEDS: CEFOTETAN 2 GM/50 ML PIGGYBACK IV (19:18)
[2018-11-30 19:22] LABS: Vitamin B12 453 pg/mL (239-931)
[2018-11-30 21:16] LABS: Chloride 103 mmol/L (98-107); HEMOLYSIS < 15 (0-50)
[2018-11-30 21:22] LABS: Blood Urea Nitrogen 48 mg/dL (9-20); Calcium 8.6 mg/dL (8.4-10.2); Carbon Dioxide 16 mmol/L (22-32); Estimated Glomerular Filt Rate > 60.0 mL/min (>60); Glucose 350 mg/dL (80-110); Sodium 134 mmol/L (137-145)
[2018-11-30 21:23] LABS: Potassium 5.1 mmol/L (3.4-5.1)
[2018-11-30] MEDS: INSULIN GLARGINE 100 UNIT/ML 3ML PEN 10 UNIT SUBCUT (22:11)
[2018-11-30] MEDS: HEPARIN 5,000 UNIT/ML VIAL 5000 UNIT SUBCUT (22:12)
[2018-12-01] VITALS (10 sets, daily range): BP systolic 126–145; BP diastolic 68–81; PULSE 60–76; RESP 16–18; TEMP 36.6–37.4; O2SAT 97–99
[2018-12-01] MEDS: SODIUM CHLORIDE 0.9% 1,000 ML 200 ML IV (04:01)
[2018-12-01] MEDS: INSULIN ASPART 100 UNIT/ML INSULN PEN SUBCUT ×4 (04:28→16:49)
[2018-12-01 06:01] LABS: BUN Creatinine Ratio 47.5 (6-22); Blood Urea Nitrogen 38 mg/dL (9-20); Calcium 8.6 mg/dL (8.4-10.2); Carbon Dioxide 20 mmol/L (22-32); Chloride 107 mmol/L (98-107); Estimated Glomerular Filt Rate > 60.0 mL/min (>60); Glucose 243 mg/dL (80-110); HEMOLYSIS < 15 (0-50); Magnesium 1.9 mg/dL (1.6-2.3); Potassium 4.5 mmol/L (3.4-5.1); Sodium 136 mmol/L (137-145)
[2018-12-01] MEDS: CEFOTETAN 2 GM/50 ML PIGGYBACK IV ×2 (06:03→18:11)
[2018-12-01 06:11] LABS: Add Manual Diff / Slide Review NO; Basophils Percent Auto 0.1 % (0-2); Hematocrit 29.6 % (41-53); Hemoglobin 10.3 g/dL (13.5-17.5); Lymphocytes Percent Auto 16.7 % (25-40); Mean Corpuscular HGB Conc 34.8 % (30-36); Mean Corpuscular Hemoglobin 33.2 PG (26-34); Mean Corpuscular Volume 95.3 fL (80-100); Monocytes Percent Auto 7.4 % (3-14); Neutrophils Absolute Auto 6900 /uL (1500-7000); Neutrophils Percent Auto 75.8 % (50-75); Platelet Count 216 X10^3/uL (150-400); Red Blood Cell Count 3.11 X10^6/uL (4.5-5.9); Red Cell Distribution Width 12.9 % (11.6-14.8); White Blood Cell Count 9.1 X10^3/uL (4.5-11.0)
--- NOTE | 2018-12-01 07:36 | PC.NURSE ---
Patient alert and oriented, just c/o being tired. Antibiotics in with no problems. Using urinal independently at the bedside.
--- NOTE | 2018-12-01 08:08 | PM.PN.1 ---
Subjective Date Patient Seen: 12/01/18 Interval history: Klever Emmanuel this 63-year-old male with a past medical history significant for coronary artery disease status post CABG x 5 vessels, hyperlipidemia, and diabetes mellitus type 2, non-insulin using who presented for elevated blood glucose and progressive worsening unsteadiness, dizziness and fatigue. The patient reports that he felt dizzy and ?wobbly? for the last 2 days which has progressively worsened. Overnight: There were no acute events and the patient remained stable. Today he is resting in bed comfortably. He reports he feels better today. His blood sugars continue to be elevated in the 200s. He endorses 2 episodes of mild diarrhea. He denies headache, shortness of breath, chest pain, abdominal pain, nausea, vomiting, fever, chills, dysuria, diarrhea or constipation. He is voiding and eliminating without difficulty. He is up ambulating with assistance. Exam Vital Signs (past 8 hours): - 12/01/18 01:15 12/01/18 02:08 12/01/18 04:50 Temperature 97.9 F 98.1 F Pulse Rate 76 63 Respiratory Rate 16 16 Blood Pressure 142/81 H 144/73 H Pulse Oximetry 98 98 99 12/01/18 07:46 12/01/18 08:00 Temperature 98.9 F Pulse Rate 60 Respiratory Rate 16 Blood Pressure 145/72 H Pulse Oximetry 99 98 Oxygen Delivery Method Room Air Oxygen Flow Rate 0 Narrative Exam Narrative: General: Middle-aged cachetic gentleman sitting in bed, in no acute distress, appears older than stated age, appropriately interactive. HEENT: Normocephalic, atraumatic. External ears without defect. Pupils equal, round, and reactive to light. Anicteric sclerae, moist conjunctivae, and no lid lag. Poor dentition with multiple dental caries without appreciable abscess. Neck: Supple with full range of motion. No lymphadenopathy or thyromegaly. Cardiovascular: Regular rate and rhythm without murmurs, rubs, or gallops appreciated. Vertical scar on anterior chest wall. Pulmonary: Clear to auscultation bilaterally without crackles, wheezes, or rhonchi. Normal respiratory effort with no use of accessory muscles. Abdomen: Soft, bowel sounds present, nontender, nondistended. No hepatosplenomegaly or masses appreciated. Extremities: No clubbing, cyanosis, or edema. Skin: Normal temperature, turgor, and texture; no rash, ulcers, or subcutaneous nodules appreciated. Neurological: Cranial nerves grossly intact. Psychiatric: Normal mood and affect. Alert and oriented to person, place, and time. Objective Labs Result Diagrams: 12/02/18 05:03 12/02/18 05:03 Labs: Laboratory Results - last 24 hr 11/30/18 11/30/18 11/30/18 12:35 12:40 12:40 WBC 8.9 RBC 3.79 L Hgb 12.6 L Hct 38.2 L MCV 100.9 H MCH 33.2 MCHC 33.0 RDW 12.8 Plt Count 276 Neut % (Auto) 87.0 H Lymph % (Auto) 7.4 L [place] % (Auto) 5.4 Eos % (Auto) 0.0 L Baso % (Auto) 0.2 Neut # (Auto) 7700 H VBG pH 7.16 L* VBG pCO2 27.2 L VBG pO2 32 L VBG HCO3 10 L VBG Total CO2 11 L VBG O2 Saturation 48 L VBG Base Excess -19.0 L Sodium 132 L Potassium 5.5 H Chloride 94 L Carbon Dioxide 10 L BUN 56 H Creatinine 1.10 Estimated GFR > 60.0 BUN/Creatinine Ratio 50.9 H Glucose 577 H* Hemoglobin A1c Lactate Calcium 9.7 Phosphorus Magnesium Total Bilirubin 0.6 AST 18 ALT 22 Alkaline Phosphatase 94 Total Protein 7.7 Albumin 4.7 Globulin 3.0 Albumin/Globulin Ratio 1.6 Vitamin B12 Ketones 9.62 H 11/30/18 11/30/18 11/30/18 12:45 13:00 17:00 WBC RBC Hgb Hct MCV MCH MCHC RDW Plt Count Neut % (Auto) Lymph % (Auto) [place] % (Auto) Eos % (Auto) Baso % (Auto) Neut # (Auto) VBG pH VBG pCO2 VBG pO2 VBG HCO3 VBG Total CO2 VBG O2 Saturation VBG Base Excess Sodium 135 L Potassium 4.9 Chloride 101 Carbon Dioxide 11 L BUN 51 H Creatinine 0.90 Estimated GFR > 60.0 BUN/Creatinine Ratio 56.7 H Glucose 369 H D Hemoglobin A1c 13.8 H Lactate 1.2 Calcium 9.1 Phosphorus 4.9 H Magnesium 2.1 Total Bilirubin AST ALT Alkaline Phosphatase Total Protein Albumin Globulin Albumin/Globulin Ratio Vitamin B12 Ketones 11/30/18 11/30/18 12/01/18 17:00 21:00 05:00 WBC 9.1 RBC 3.11 L Hgb 10.3 L Hct 29.6 L MCV 95.3 D MCH 33.2 MCHC 34.8 RDW 12.9 Plt Count 216 Neut % (Auto) 75.8 H Lymph % (Auto) 16.7 L [place] % (Auto) 7.4 Eos % (Auto) 0.0 L Baso % (Auto) 0.1 Neut # (Auto) 6900 VBG pH VBG pCO2 VBG pO2 VBG HCO3 VBG Total CO2 VBG O2 Saturation VBG Base Excess Sodium 134 L Potassium 5.1 Chloride 103 Carbon Dioxide 16 L BUN 48 H Creatinine 0.80 Estimated GFR > 60.0 BUN/Creatinine Ratio 60.0 H Glucose 350 H Hemoglobin A1c Lactate Calcium 8.6 Phosphorus Magnesium Total Bilirubin AST ALT Alkaline Phosphatase Total Protein Albumin Globulin Albumin/Globulin Ratio Vitamin B12 453 Ketones 12/01/18 05:00 WBC RBC Hgb Hct MCV MCH MCHC RDW Plt Count Neut % (Auto) Lymph % (Auto) [place] % (Auto) Eos % (Auto) Baso % (Auto) Neut # (Auto) VBG pH VBG pCO2 VBG pO2 VBG HCO3 VBG Total CO2 VBG O2 Saturation VBG Base Excess Sodium 136 L Potassium 4.5 Chloride 107 Carbon Dioxide 20 L BUN 38 H Creatinine 0.80 Estimated GFR > 60.0 BUN/Creatinine Ratio 47.5 H Glucose 243 H D Hemoglobin A1c Lactate Calcium 8.6 Phosphorus Magnesium 1.9 Total Bilirubin AST ALT Alkaline Phosphatase Total Protein Albumin Globulin Albumin/Globulin Ratio Vitamin B12 Ketones Assessment & Plan Plan: Assessment/Plan Narrative: Klever Emmanuel this 63-year-old male with a past medical history significant for coronary artery disease status post CABG, hyperlipidemia, and diabetes mellitus type 2, non-insulin using who presented for elevated blood glucose and was admitted for diabetic ketoacidosis. 1. Acute DKA, present on admission. Resolved. -Likely secondary to dexamethasone 8 mg daily and dental felicita/infection. -Initial blood glucose 577 with an anion gap of 28. Ketones 9.62. -VBG demonstrated: PH 7.16 (corrected to 7.2), pCO2 27.2, HCO3 10. -Monitored electrolytes and anion gap with BMP every 4 hr until anion gap closed. -Blood glucose improved with administration of 2 L NS boluses to 454. Continued IV fluids at 100 mL/hr and stopped today as the patient is adequately hydrated. -Received regular insulin 10 units IV x1 and blood glucose has improved to 337. Continue Accu-Checks ACHS and Lantus 10 units b.i.d. as blood glucose is still running in 200s. Continue high-dose correctional scale insulin. 2. Acute anion gap metabolic acidosis, present on admission. Resolved. -Continued to monitor BMP every 4 hr until anion gap closed. Lactate normal at 1.9 -Treated DKA as above. 3. Recent dental infection, present on admission. Stable. -Patient has been on clindamycin 300 mg 4 times daily for 3 days and continued on cefotetan 2 g IV every 12 hr til this evening to finish 5 day course of antibiotics total. -Patient completed 3 day course of dexamethasone. -Planned outpatient dental follow-up at the beginning of December for root canal. 4. Diabetes mellitus type 2, non-insulin using, present on admission. Active. -Patient reports last hemoglobin A1c was 14% a month ago. Hemoglobin A1c 13.8% on admission. -Restarted metformin 1000 mg b.i.d.. -Received regular insulin 10 units IV x1 and blood glucose has improved to 337. Continue Accu-Checks ACHS and Lantus 10 units b.i.d. as blood glucose is still running in 200s. Continue high-dose correctional scale insulin. -Ordered diabetic education and insulin administration teaching. 5. Coronary artery disease status post CABG, chronic, present on admission. Presumed stable. -Continue aspirin 81 mg daily and atorvastatin 40 mg daily. 6. Hyperlipidemia, chronic, present on admission. Presumed stable. -Continue atorvastatin 40 mg daily. 7. Underweight, chronic, present on admission. Stable. -Patient reports slow weight loss of approximately 40 lb unintentionally over the last year. Has a history of esophageal polyps removed 2 weeks ago which are benign but limited p.o. intake due to dysphagia. -Initial BMI 16.9. -Ordered nutritional consultation to discuss caloric intake and diabetic diet. 8. Tobacco use disorder, present on admission. Active. -Patient smokes a half pack a day for 50+ years. -Counseled patient on smoking cessation. Will provide Nicoderm patch if needed for nicotine withdrawal. 9. Iron deficiency anemia, chronic, present on admission. Presumed stable. -History of iron deficiency anemia. B12 level normal despite chronic alcohol use. -No overt signs of bleeding. Will monitor hemoglobin and hematocrit daily. -Continue iron supplementation 30 mg daily. Disposition: Patient likely to discharge home tomorrow depending upon blood glucose control.
[2018-12-01] MEDS: ASPIRIN EC 81 MG TABLET PO (09:06)
[2018-12-01] MEDS: ATORVASTATIN 20 MG TABLET 40 MG PO (09:06)
[2018-12-01] MEDS: HEPARIN 5,000 UNIT/ML VIAL 5000 UNIT SUBCUT ×2 (09:06→21:24)
[2018-12-01] MEDS: SODIUM CHLORIDE 0.9% 1,000 ML 100 ML IV ×2 (12:04→22:26)
--- NOTE | 2018-12-01 15:53 | CM.IDA ---
DCP Assessment Note: Pt is a 63 yo male, resident of [place]. Pt lived on [place] until a year ago when he and his moved on to their boat and are docked at a local [place]. Pt is admitted IP for DKA and at least 35-40 lb weight loss over the last 6mo-year, pt also w/ recent dental abscess, now requiring abx. Pt is searching for a PCP presently and has Medicare/ AARP insurance. Met w/pt and his this morning, explained SW role. Pt sleepy throughout our conversation. Spouse explains pt has not been feeling well for quite some time and she is somewhat relieved he is here. Pt had spent many months (prior to his esophageal surgery) choking after attempting to eat and now, although he can eat, pt says he has lost his appetite. Spouse hopeful to get some ideas from a sausage mixer or PCP re: putting weight back on pt and not throwing his sugars out of whack. Spouse feels confident about taking pt back home to their boat when pt is medically stable, the boat is arranged for easy maneuvering and spouse able to assist as needed. P: DC likely back to boat when medically cleared. PERSONAL CARE AIDE team will follow closely for any DC needs or concerns that might arise. R/O need for HH upon DC. MANJULA Cage Discharge Planning/Care Management Advanced directive, confirm from FAMILY Start: 11/30/18 16:52 Freq: Q24H Status: Active Protocol: Document 11/30/18 17:09 AK (Rec: 11/30/18 17:10 [place] [id number]) Advance Directive, confirm on record Time 17:10 Person contacted : Effie Lau received No CM Discharge Assessment Start: 12/01/18 15:48 Freq: Status: Active Protocol: Document 12/01/18 15:48 TONY (Rec: 12/01/18 15:53 TONY [id number]) Discharge Planning Assessment Assigned Cardiac Care Nurse MANJULA Moreland DPOA/Assigned Designee Name Effie Emmanuel, spouse Contact Information [phone] Advance Directives? Yes History Provided By Patient Significant Other Comment Boat Household Members spouse Type of transporation used prior to Relies on Others admit Independent with ADL's No: Weak lately w/ weight loss and not feeling well Is patient alert and oriented? Yes Patient/Family Preference Home with Home Health Comment Home health if needed and if he qualifies Barriers to Discharge No Comment As of now, no barriers indicated to safe return home w/spouse. Spouse feels their boat is well set up for pt and she can assist 18/06 as needed . Discharge Plan Home Transportation Arrangement Spouse Referrals Initiated None needed Additional Comment R/O Whiteboard Updated in Patient Room with Yes name and ext. # of Cardiac Care Nurse Review Status In Process
--- NOTE | 2018-12-01 17:23 | PC.NURSE ---
Patient is A&O x3, cooperative w/ staff and has been really receptive to patient teaching regarding carb control and diabetes education as well as smoking and ETOH cessation. Patient does seem a bit grumpy during conversation being had in room between staff, self and spouse. Patient reports all information is very overwhelming but good and helpful information. Patient seems open to improving himself but also understands that it will take work and time. has many questions for staff regarding diet, blood sugars and controlling them as well as A1c numbers. Did lots of bedside education but did also recommend to have these questions ready for Chlorine Cell Tender and diabetic clay press operator tomorrow before discharge. Encouraging patient at this time to limit his milk intake and information was given regarding proper foods for Diabetic diet. Call light w/in reach, bed in low pos.
[2018-12-01] MEDS: INSULIN GLARGINE 100 UNIT/ML 3ML PEN 10 UNIT SUBCUT (21:24)
[2018-12-02] VITALS (10 sets, daily range): BP systolic 130–137; BP diastolic 67–79; PULSE 68–89; RESP 14–20; TEMP 36.6–37.1; O2SAT 94–100; BMI 16.9
[2018-12-02] MEDS: CEFOTETAN 2 GM/50 ML PIGGYBACK IV ×2 (05:57→18:22)
[2018-12-02 06:07] LABS: Add Manual Diff / Slide Review NO; Basophils Percent Auto 0.2 % (0-2); Eosinophils Percent Auto 0.4 % (2-4); Hematocrit 30.7 % (41-53); Hemoglobin 10.9 g/dL (13.5-17.5); Lymphocytes Percent Auto 27.2 % (25-40); Mean Corpuscular HGB Conc 35.4 % (30-36); Mean Corpuscular Hemoglobin 33.5 PG (26-34); Mean Corpuscular Volume 94.6 fL (80-100); Monocytes Percent Auto 6.4 % (3-14); Neutrophils Absolute Auto 5400 /uL (1500-7000); Neutrophils Percent Auto 65.8 % (50-75); Platelet Count 193 X10^3/uL (150-400); Red Blood Cell Count 3.25 X10^6/uL (4.5-5.9); Red Cell Distribution Width 12.9 % (11.6-14.8); White Blood Cell Count 8.1 X10^3/uL (4.5-11.0)
[2018-12-02 06:08] LABS: Alanine Aminotransferase 28 IU/L (21-72); Albumin 3.1 g/dL (3.5-5.0); Albumin Globulin Ratio 1.2 (1.0-2.8); Alkaline Phosphatase 55 U/L (38-126); Aspartate Aminotransferase 24 IU/L (17-59); Bilirubin Total 0.5 mg/dL (0.2-1.3); Blood Urea Nitrogen 21 mg/dL (9-20); Calcium 8.2 mg/dL (8.4-10.2); Carbon Dioxide 23 mmol/L (22-32); Chloride 102 mmol/L (98-107); Estimated Glomerular Filt Rate > 60.0 mL/min (>60); Globulin 2.6 g/dL (1.7-4.1); Glucose 279 mg/dL (80-110); HEMOLYSIS < 15 (0-50); Magnesium 1.5 mg/dL (1.6-2.3); Potassium 3.9 mmol/L (3.4-5.1); Sodium 134 mmol/L (137-145); Total Protein 5.7 g/dL (6.3-8.2)
--- NOTE | 2018-12-02 06:40 | PC.NURSE ---
senior cytotechnologist: 0600 pt has no c/o pain or nausea, reports feeling weel until appr 0555 when he called after having a brief episode of nausea and was incontinent of loose stool. Pt assisted up to bathroom and denies pain and nausea. Linens and gown changed.
[2018-12-02] MEDS: INSULIN ASPART 100 UNIT/ML INSULN PEN SUBCUT ×4 (07:41→20:12)
[2018-12-02] MEDS: ASPIRIN EC 81 MG TABLET PO (09:24)
[2018-12-02] MEDS: ATORVASTATIN 20 MG TABLET 40 MG PO (09:24)
[2018-12-02] MEDS: HEPARIN 5,000 UNIT/ML VIAL 5000 UNIT SUBCUT ×2 (09:24→20:10)
[2018-12-02] MEDS: INSULIN GLARGINE 100 UNIT/ML 3ML PEN 10 UNIT SUBCUT ×2 (09:34→20:11)
--- NOTE | 2018-12-02 15:13 | PT.IIE ---
Current Diagnoses Type 2 diabetes mellitus with ketoacidosis without coma (11/30/18) Surgical History (Last Updated 11/30/18 @ 17:12 by Chantal Burrell DO) Hx of CABG (Acute) Stented coronary artery (Acute) Medical History (Last Updated 11/30/18 @ 16:52 by Belkis No RN) Coronary artery disease (Acute) Diabetes (Acute) Esophageal polyp (Acute) High cholesterol (Acute) Iron deficiency anemia (Acute) Physical Therapy Inpatient Evaluation/Re-Eval M1 PT/OT-IP Prior Functional Status Start: 12/02/18 15:02 Freq: NEEDED Status: Active Protocol: Document 12/02/18 15:03 [facility] (Rec: 12/02/18 15:12 [facility] [id number]) Medical Review Prior Functional Status Medical History Reviewed Yes Diet/Fluid Consistency Regular Communication WNL Mobility and Gait Indep w/no AD Activities of Daily Living and IADL's indep Social History Household Members spouse Number of Stairs To Enter/Railing? 5 steps w/ rail; lives on boat Home Environment Standard Height Toilet Walk in Shower Home Equipment Grab Bars In Shower Employment Status Retired M2 PT-IP Current Condition Start: 12/02/18 15:02 Freq: NEEDED Status: Active Protocol: Document 12/02/18 15:03 [facility] (Rec: 12/02/18 15:12 [facility] [id number]) Physical Therapy Current Condition Current Condition Evaluation Date 12/02/18 Treatment Diagnosis dec balance M3 PT-IP Subjective Start: 12/02/18 15:02 Freq: NEEDED Status: Active Protocol: Document 12/02/18 15:03 [facility] (Rec: 12/02/18 15:12 [facility] [id number]) Subjective Physical Therapy Visit Type Type Initial Evaluation Visit Start Time 11:40 Visit Stop Time 12:05 Total Visit Minutes 25 Number of RESEARCH AND DEVELOPMENT ENGINEER Visits 0 Therapy Pain Assessment Pain Present Pain Present Denied Pain M4 PT-IP Mobility and Gait Start: 12/02/18 15:02 Freq: NEEDED Status: Active Protocol: Document 12/02/18 15:03 [facility] (Rec: 12/02/18 15:12 [facility] [id number]) PT-Bed Mobility Assessment Supine to Sit Supine to Sit Standby Assistance Bedrails Scooting Scooting Up and Down in Bed Standby Assistance PT-Transfer Assessment Sit to and From Stand Sit to and from Stand Standby Assistance Use of Upper Extremities Equipment Transfer Assistive Device Gait Belt Orthotic/Prosthetic Devices or Brace: No Transfers Transfer Destination Chair Transfer Technique Stand Step Pivot Transfer Ability Level of Assist Standby Assistance Gait Assessment Gait Gait Assistance Required: Standby Assistance Distance (Feet) 600 Assistive Devices Assistive Device Gait Belt Orthotic/Prosthetic Devices or Brace: No Comments Gait Comments Pt initially reached for furniture with amb then was able to amb w/o AD Stair Climbing Assessment Evaluation Level of Assist On Stairs Standby Assistance Devices Stair Climbing Assistive Devices Left Railing Technique/Endurance Stair Climbing Direction Ascend and Descend Stair Climbing Technique Step to Step Stair Climbing Set # Repetitions (reps) 2 PT-Balance Assessment Sitting Balance and Reactions Static Sitting Balance Ability Normal Dynamic Sitting Balance Ability Normal Standing Balance and Reactions Static Standing Balance Ability Good Dynamic Standing Balance Ability Fair M5 PT-IP Objective Assessments Start: 12/02/18 15:02 Freq: NEEDED Status: Active Protocol: Document 12/02/18 15:03 [facility] (Rec: 12/02/18 15:12 [facility] [id number]) Strength Lower Extremity Strength Assessment Bilaterally Impaired M6 PT-IP Treatment Start: 12/02/18 15:02 Freq: NEEDED Status: Active Protocol: Document 12/02/18 15:03 [facility] (Rec: 12/02/18 15:12 [facility] [id number]) Physical Therapy Treatment Education Education Provided Safety M7 PT-IP Assessment and Plan Start: 12/02/18 15:02 Freq: NEEDED Status: Active Protocol: Document 12/02/18 15:03 [facility] (Rec: 12/02/18 15:12 [facility] [id number]) PT Summary Assessment and Plan Potential Rehabilitation Potential Excellent Status of Condition at Evaluation Stable Summary Impairments Strength Balance Gait Goals Bed Mobility Goal Independent Transfer Goal Independent Gait Goal Independent Gait Distance 300ft Other Goals up and down 4 stairs with 1 rail SBA Days to Meet Goals 2 Frequency of Treatment Frequency Of Treatment Once a Day Treatment Plan Physical Therapy Treatment Plan Bed Mobility Training Transfer Training Gait Training Therapeutic Exercise Balance Retraining Discharge Planning Neuromuscular Re-ed Other Recommendations and Next Treatment bed mobility & stairs Focus Recommendations To Nursing Amount of Assist Needed Standby Assistance Discharge Recommendations PT Discharge Recommendations Home Outpatient PT
[2018-12-02] MEDS: METFORMIN HCL 500 MG TABLET 1000 MG PO (16:48)
--- NOTE | 2018-12-02 19:24 | PC.NURSE ---
1900- Pt had episode loose stools thick dark brown, no odor, bed lined changed. Dr. Burrell orders for C.diff culture, sample sent to lab @ 1919. BT+, denies nausea, and pain, [id number] given 7 units insulin and 1000mg metformin PO. RFA SL except for ABO. 100%RA, LS clear. Telemetry DC'd. VSS. in to visit, call light in reach and bed alarm on for safety.
[2018-12-02] MEDS: MAGNESIUM SULFATE 2 GM/50 ML PIGGYBACK IV (19:59)
[2018-12-02 21:23] LABS: Clostridium Difficile Tox PCR Negative for C. diff
[2018-12-03] VITALS (11 sets, daily range): BP systolic 106–135; BP diastolic 68–77; PULSE 68–105; RESP 16–17; TEMP 36.4–36.8; O2SAT 96–100
[2018-12-03 05:58] LABS: Add Manual Diff / Slide Review NO; Basophils Percent Auto 0.1 % (0-2); Eosinophils Percent Auto 1.6 % (2-4); Hematocrit 31.7 % (41-53); Hemoglobin 11.3 g/dL (13.5-17.5); Lymphocytes Percent Auto 36.5 % (25-40); Mean Corpuscular HGB Conc 35.6 % (30-36); Mean Corpuscular Hemoglobin 33.4 PG (26-34); Neutrophils Absolute Auto 3400 /uL (1500-7000); Neutrophils Percent Auto 55.8 % (50-75); Platelet Count 187 X10^3/uL (150-400); Red Blood Cell Count 3.38 X10^6/uL (4.5-5.9); Red Cell Distribution Width 12.9 % (11.6-14.8); White Blood Cell Count 6.1 X10^3/uL (4.5-11.0)
[2018-12-03 06:01] LABS: Alanine Aminotransferase 37 IU/L (21-72); Albumin Globulin Ratio 1.2 (1.0-2.8); Alkaline Phosphatase 55 U/L (38-126); Aspartate Aminotransferase 28 IU/L (17-59); BUN Creatinine Ratio 26.7 (6-22); Bilirubin Total 0.2 mg/dL (0.2-1.3); Blood Urea Nitrogen 16 mg/dL (9-20); Calcium 8.4 mg/dL (8.4-10.2); Carbon Dioxide 25 mmol/L (22-32); Chloride 102 mmol/L (98-107); Estimated Glomerular Filt Rate > 60.0 mL/min (>60); Globulin 2.6 g/dL (1.7-4.1); Glucose 207 mg/dL (80-110); HEMOLYSIS < 15 (0-50); Magnesium 1.9 mg/dL (1.6-2.3); Potassium 3.9 mmol/L (3.4-5.1); Sodium 135 mmol/L (137-145); Total Protein 5.6 g/dL (6.3-8.2)
--- NOTE | 2018-12-03 08:30 | PM.DS.1 ---
History of Present Illness Date Patient Seen: 12/03/18 Chief complaint: Issues with diabetes/levels Narrative: Klever Emmanuel this 63-year-old male with a past medical history significant for coronary artery disease status post CABG x 5 vessels, hyperlipidemia, and diabetes mellitus type 2, non-insulin using who presented for elevated blood glucose and progressive worsening unsteadiness, dizziness and fatigue. The patient reports that he felt dizzy and ?wobbly? for the last 2 days which has progressively worsened. He recently over the last several weeks has been checking his blood glucose at home and usually is in the 300s. He is only on metformin 500 mg twice daily for glycemic control. He recently had a hemoglobin A1c performed at his PCP, Dr. Patel, and reports it was 14%. He recently had a dental felicita that became infected and was started on clindamycin 300 mg 4 times daily for 1 week and dexamethasone 8 mg daily for 3 days. He has completed the dexamethasone. He is scheduled to have a root canal at the beginning of December. His reports his dental infection and associated dental pain has improved significantly. His blood sugars while on glucocorticoids have been in the 600s per the ED physician's note. He denies headache, vision changes, throat pain, chest pain, shortness of breath, abdominal pain, nausea, vomiting, fever, chills, dysuria or diarrhea. He endorses polydipsia, polyuria and chronic constipation and typically has a bowel movement every other day. He did have an episode of nausea and vomiting in the ED which has resolved. Of note, he recently had an esophageal polypectomy 2 weeks ago in which the polyps were found to be benign. However, the patient has had significant weight loss likely due to decreased p.o. intake from dysphagia. He reports he has lost approximately 40 lb unintentionally over the last year. Since removal of the esophageal polyps he has had resolution of his dysphagia but continues to have a very poor appetite. He is not due for a colonoscopy for 1-2 more years. No family history of cancers. He is an everyday smoker. He also consumes alcohol 1-2 beverages a day of bourbon and 7 up. He denies any history of alcohol withdrawal, delirium tremens or alcohol withdrawal seizures. The patient and his were living in [place] but are currently living on a boat here in the local [place]. He is actively in search of a PCP locally. Discharge Providers Date of admission: 11/30/18 14:46 Consults: 11/30/18 16:51 Consult to Dietitian, Adult Routine Comment: Reason For Exam: assessed at high risk Consult to Engineering Technologist Routine Comment: 12/02/18 09:30 Consult to Physical Therapy Evaluate & Treat Comment: Physician Instructions: Evaluate and Treat Discharge provider: Rosa Isela Fernando MD Discharge Date: 12/03/18 Summary Discharge Diagnosis: Diabetic ketoacidosis resolved Hyperglycemia Diarrhea Dental abscess improved Hyperlipidemia Protein calorie malnutrition Hospital Course: Patient is a 63-year-old male who was admitted to the hospital with hyperglycemia, dental abscess, DKA. Patient had been treated for his dental abscess with Decadron and antibiotics. He developed significant hyperglycemia with acidosis. Patient received insulin in the hospital in addition to resumption of his metformin. He had improvement of his glycemic control. Patient was treated with IV antibiotics for his dental abscess. He subsequently developed significant diarrhea. C diff was negative. Antibiotics have been discontinued. Steroids have been discontinued. Patient is on a new regimen including insulin for his diabetes. Blood sugars have improved. Patient is able to ambulate. He was deemed appropriate for discharge home. Status at Discharge Functional status at discharge: independent ambulation Overall status at discharge: patient is back to baseline Time Spent with Patient Less than 30 minutes Exam Vital Signs (past 8 hours): - 12/03/18 04:48 Temperature 97.6 F Pulse Rate 79 Respiratory Rate 16 Blood Pressure 134/73 Pulse Oximetry 99 Oxygen Delivery Method Room Air Oxygen Flow Rate 0 Narrative Exam Narrative: Pleasant gentleman in no acute distress Lungs: Decreased breath sounds but clear to auscultation Cardiac exam: Regular rate rhythm normal S1-S2 Abdomen: Soft nontender nondistended without hepatosplenomegaly Extremities: No edema Objective Labs Result Diagrams: 12/03/18 05:25 12/03/18 05:25 Labs: Laboratory Results - last 24 hr 12/02/18 12/03/18 12/03/18 Unknown 05:25 05:25 WBC 6.1 RBC 3.38 L Hgb 11.3 L Hct 31.7 L MCV 94.0 MCH 33.4 MCHC 35.6 RDW 12.9 Plt Count 187 Neut % (Auto) 55.8 Lymph % (Auto) 36.5 [place] % (Auto) 6.0 Eos % (Auto) 1.6 L Baso % (Auto) 0.1 Neut # (Auto) 3400 Sodium 135 L Potassium 3.9 Chloride 102 Carbon Dioxide 25 BUN 16 Creatinine 0.60 L Estimated GFR > 60.0 BUN/Creatinine Ratio 26.7 H Glucose 207 H Calcium 8.4 Magnesium 1.9 Total Bilirubin 0.2 AST 28 ALT 37 Alkaline Phosphatase 55 Total Protein 5.6 L Albumin 3.0 L Globulin 2.6 Albumin/Globulin Ratio 1.2 C. difficile Tox (PCR) Negative for c. diff Discharge Plan Discharge Plan Patient Disposition: Home Discharge Med Rec/Prescriptions Prescriptions: New metformin [Glucophage] 500 mg Tablet 1,000 mg PO 0800,1700 30 Days Qty: 120 RF: 0 insulin glargine [Lantus Solostar U-100 Insulin] 100 unit/mL (3 mL) insulin pen 12 unit SUBCUT BID 30 Days Qty: 7.2 RF: 0 Continue atorvastatin 40 mg tablet 40 mg PO DAILY RF: 0 hydrocodone-acetaminophen 5-325 mg tablet 1 tab PO Q6HR PRN (Reason: dental pain) RF: 0 aspirin [Aspir-81] 81 mg Tablet,Delayed Release (Dr/Ec) 81 mg PO DAILY RF: 0 iron, carbonyl [Iron Chews] 15 mg Tablet,Chewable 30 mg PO DAILY RF: 0 Discontinued metformin 500 mg Tablet 500 mg PO BID RF: 0 clindamycin HCl 300 mg capsule 300 mg PO QID RF: 0 dexamethasone 4 mg tablet 8 mg PO DAILY RF: 0 Follow up/Referrals: Klever Jones MD [Physician] - 12/05/18 2:30 pm (*appt: 12/05 @ 2:30 check in for paperwork then a 3:[address] jones @ the [address] [phone] [facility] follow-up initially for DM management and new on insulin,. Then establish care. CAD s/p CABG) Provider Discharge Instructions Diet: Carb-consistent/Diabetic Activity: aS tolerated Visit Report/Discharge Packet Instructions: Low-Carbohydrate Diet (Alternative Therapy), How to Use an Insulin Pen Visit Report Forms: Stroke Signs & Symptoms Discharge Data Attending Provider: Chantal Burrell Admit Date/Time: 11/30/18 14:46
[2018-12-03] MEDS: INSULIN ASPART 100 UNIT/ML INSULN PEN SUBCUT ×3 (08:52→16:51)
[2018-12-03] MEDS: INSULIN GLARGINE 100 UNIT/ML 3ML PEN 10 UNIT SUBCUT ×2 (08:53→20:47)
[2018-12-03] MEDS: METFORMIN HCL 500 MG TABLET 1000 MG PO ×2 (08:54→16:49)
[2018-12-03] MEDS: ATORVASTATIN 20 MG TABLET 40 MG PO (08:54)
[2018-12-03] MEDS: ASPIRIN EC 81 MG TABLET PO (08:54)
[2018-12-03] MEDS: LOPERAMIDE 2 MG/10 ML UDC 4 MG PO (08:54)
[2018-12-03] MEDS: HEPARIN 5,000 UNIT/ML VIAL 5000 UNIT SUBCUT ×2 (08:55→20:47)
[2018-12-03] MEDS: SODIUM CHLORIDE 0.9% 500 ML IV (10:00)
--- NOTE | 2018-12-03 10:41 | PT.IPTN ---
Current Diagnoses Type 2 diabetes mellitus with ketoacidosis without coma (11/30/18) Physical Therapy Treatment Note Notes RN requests therapies hold right now due to low BP. RN is doubtful the patient will still discharge today.
--- NOTE | 2018-12-03 11:32 | PC.NURSE ---
Pts BP down to 82/51 around 0915. Called and she ordered a 500cc bolus of NS, to cancel discharge at this time, and pt to rest in bed. BP check an hour later and up to 123/70. Resting at this time.
--- NOTE | 2018-12-03 16:35 | PT.IPTN ---
Current Diagnoses Type 2 diabetes mellitus with ketoacidosis without coma (11/30/18) Physical Therapy Treatment Note M2 PT-IP Current Condition Start: 12/02/18 15:02 Freq: NEEDED Status: Active Protocol: Document 12/02/18 15:03 [facility] (Rec: 12/02/18 15:12 [facility] [id number]) Physical Therapy Current Condition Current Condition Evaluation Date 12/02/18 Treatment Diagnosis dec balance M3 PT-IP Subjective Start: 12/02/18 15:02 Freq: NEEDED Status: Active Protocol: Document 12/03/18 16:32 AB (Rec: 12/03/18 16:35 AB [id number]) Subjective Physical Therapy Visit Type Type Patient Refusal Notes pt refused PT stating that he does not think he can do ambulation at this time. stated that his BP is better but still low. informed pt that PT will check with nurse and if nurse stated that pt's BP is ok, if pt can ambulate with PT. pt refused but agreed for therapy to check on him tomorrow. informed nurse and nurse stated that his BP is normal and that pt received and IV bolus and BP has been good since then.
[2018-12-03] MEDS: LACTATED RINGERS 1,000 ML 100 ML IV (16:48)
--- NOTE | 2018-12-03 21:31 | PC.NURSE ---
Terri shift note: 1545: Patient awake, alert and pleasant. VSS no dizziness or hypotension. Dr. Fernando at bedside during orthostatic VS, negative. States loose stool are decreasing in amount and frequency. States feels much stronger than previous day. Calls appropriately for staff assistance.
[2018-12-03 21:52] LABS: Bacteria Urine None Seen
[2018-12-03 21:53] LABS: Appearance Urine UA CLEAR; Bilirubin Urine UA NEGATIVE (NEGATIVE); Color Urine UA YELLOW; Glucose Urine UA 2+ g/dL (Negative); Ketones Urine UA TRACE (NEGATIVE); Leukocyte Esterase Urine UA NEGATIVE (NEGATIVE); Nitrite Urine UA NEGATIVE (Negative); Occult Blood Urine UA TRACE-LYSED (Negative); Protein Urine UA TRACE (Negative); Specific Gravity Urine UA 1.025 (1.000-1.035); Urobilinogen Urine UA 0.2 E.U./dL (0.2)
[2018-12-03 22:04] LABS: Hyaline Casts Urine 5-10/LPF; RBC Urine 0-1/HPF (0-5/HPF); Squamous Epithelial Cell Urine 0-1 /HPF; WBC Urine 5-10/HPF (0-5/HPF)
[2018-12-03 22:05] LABS: Culture Indicated Urine Specimen Cultured
[2018-12-04] VITALS (8 sets, daily range): BP systolic 126–149; BP diastolic 60–82; PULSE 63–90; RESP 16–20; TEMP 36.7–36.9; O2SAT 98–100
[2018-12-04] MEDS: LACTATED RINGERS 1,000 ML 100 ML IV (03:08)
[2018-12-04 05:51] LABS: BUN Creatinine Ratio 23.3 (6-22); Blood Urea Nitrogen 14 mg/dL (9-20); Calcium 8.5 mg/dL (8.4-10.2); Carbon Dioxide 24 mmol/L (22-32); Chloride 103 mmol/L (98-107); Estimated Glomerular Filt Rate > 60.0 mL/min (>60); Glucose 207 mg/dL (80-110); HEMOLYSIS < 15 (0-50); Potassium 3.5 mmol/L (3.4-5.1); Sodium 135 mmol/L (137-145)
[2018-12-04] MEDS: METFORMIN HCL 500 MG TABLET 1000 MG PO (09:07)
[2018-12-04] MEDS: ASPIRIN EC 81 MG TABLET PO (09:07)
[2018-12-04] MEDS: INSULIN ASPART 100 UNIT/ML INSULN PEN SUBCUT (09:09)
[2018-12-04] MEDS: INSULIN GLARGINE 100 UNIT/ML 3ML PEN 10 UNIT SUBCUT (09:10)
--- NOTE | 2018-12-04 10:16 | P.DS_ITS ---
History of Present Illness Chief complaint: Issues with diabetes/levels Narrative: Klever Emmanuel this 63-year-old male with a past medical history significant for coronary artery disease status post CABG x 5 vessels, hyperlipidemia, and diabetes mellitus type 2, non-insulin using who presented for elevated blood glucose and progressive worsening unsteadiness, dizziness and fatigue. The patient reports that he felt dizzy and ?wobbly? for the last 2 days which has progressively worsened. He recently over the last several weeks has been checking his blood glucose at home and usually is in the 300s. He is only on metformin 500 mg twice daily for glycemic control. He recently had a hemoglobin A1c performed at his PCP, Dr. Patel, and reports it was 14% . He recently had a dental felicita that became infected and was started on clindamycin 300 mg 4 times daily for 1 week and dexamethasone 8 mg daily for 3 days. He has completed the dexamethasone. He is scheduled to have a root canal at the beginning of December. His reports his dental infection and associated dental pain has improved significantly. His blood sugars while on glucocorticoids have been in the 600s per the ED physician's note. He denies headache, vision changes, throat pain, chest pain, shortness of breath, abdominal pain, nausea, vomiting, fever, chills, dysuria or diarrhea. He endorses polydipsia, polyuria and chronic constipation and typically has a bowel movement every other day. He did have an episode of nausea and vomiting in the ED which has resolved. Of note, he recently had an esophageal polypectomy 2 weeks ago in which the polyps were found to be benign. However, the patient has had significant weight loss likely due to decreased p.o. intake from dysphagia. He reports he has lost approximately 40 lb unintentionally over the last year. Since removal of the esophageal polyps he has had resolution of his dysphagia but continues to have a very poor appetite. He is not due for a colonoscopy for 1-2 more years. No family history of cancers. He is an everyday smoker. He also consumes alcohol 1-2 beverages a day of bourbon and 7 up. He denies any history of alcohol withdrawal, delirium tremens or alcohol withdrawal seizures. The patient and his were living in [place] but are currently living on a boat here in the local [place]. He is actively in search of a PCP locally. Discharge Providers Date of admission: 11/30/18 14:46 Consults: 11/30/18 16:51 Consult to Dietitian, Adult Routine Comment: Reason For Exam: assessed at high risk Consult to Manager Security Routine Comment: 12/02/18 09:30 Consult to Physical Therapy Evaluate & Treat Comment: Physician Instructions: Evaluate and Treat Discharge provider: Rosa Isela Fernando MD Discharge Date: 12/04/18 Summary Discharge Diagnosis: Diabetic ketoacidosis, present on admission Severe protein calorie malnutrition present on admission Diarrhea, acute Orthostatic hypotension, now resolved Hyperlipidemia Dental Abscess-resolved Hospital Course: Patient was admitted to the hospital with diabetic ketoacidosis. He had been placed on steroids and antibiotics for a dental abcess. Patient was acidotic, hyperglycemic and required intravenous insulin for improvement of symptoms. He remained on IV antibiotics for his dental abcess with resolution of the pain. The patient developed diarrhea, which was CDiff negative. The patient was scheduled for discharge home when he was found to be markedly orthostatic and required IV hydration for improvement. His diarrhea improved, his blood sugars continued to improve, and his acidosis resolved. The patient was deemed appropriate for discharge and discharged home. Status at Discharge Functional status at discharge: independent ambulation Overall status at discharge: patient is back to baseline Time Spent with Patient Less than 30 minutes Exam Vital Signs (past 8 hours): - 12/04/18 03:10 12/04/18 04:00 12/04/18 07:25 Temperature 98.5 F 98.0 F Pulse Rate 78 79 Respiratory Rate 18 16 Blood Pressure 128/68 142/66 H Pulse Oximetry 98 100 99 12/04/18 09:36 12/04/18 09:37 12/04/18 09:38 Temperature Pulse Rate 63 78 90 Respiratory Rate Blood Pressure 126/60 130/71 130/74 Pulse Oximetry Oxygen Delivery Method Room Air Oxygen Flow Rate 0 Narrative Exam Narrative: Pleasant male in no acute distress Lungs: Clear to auscultation Cardiac exam: Regular rate and rhythm normal S1-S2 Abdomen: Soft nontender nondistended Extremities: No edema Skin: No lesion Objective Labs Result Diagrams: 12/03/18 05:25 12/04/18 04:55 Labs: Laboratory Results - last 24 hr 12/03/18 12/04/18 21:45 04:55 Sodium 135 L Potassium 3.5 Chloride 103 Carbon Dioxide 24 BUN 14 Creatinine 0.60 L Estimated GFR > 60.0 BUN/Creatinine Ratio 23.3 H Glucose 207 H Calcium 8.5 Urine Color Yellow Urine Appearance Clear Urine pH 5.0 Ur Specific [place] 1.025 Urine Protein Trace H Urine Glucose (UA) 2+ H Urine Ketones Trace H Urine Occult Blood Trace-lysed Urine Nitrate Negative Urine Bilirubin Negative Urine Urobilinogen 0.2 Ur Leukocyte Esterase Negative Urine RBC 0-1/hpf Urine WBC 5-10/hpf H Ur Squamous Epith Cells 0-1 /hpf Urine Bacteria None seen Hyaline Casts 5-10/lpf Urine Yeast 1-5/hpf H Ur Culture Indicated? Specimen cultured Micro UA Comment Not Reportable Discharge Plan Discharge Plan Patient Disposition: Home Discharge Med Rec/Prescriptions Prescriptions: New metformin [Glucophage] 500 mg Tablet 1,000 mg PO 0800,1700 30 Days Qty: 120 RF: 0 insulin glargine [Lantus Solostar U-100 Insulin] 100 unit/mL (3 mL) insulin pen 12 unit SUBCUT BID 30 Days Qty: 7.2 RF: 0 Continue atorvastatin 40 mg tablet 40 mg PO DAILY RF: 0 hydrocodone-acetaminophen 5-325 mg tablet 1 tab PO Q6HR PRN (Reason: dental pain) RF: 0 aspirin [Aspir-81] 81 mg Tablet,Delayed Release (Dr/Ec) 81 mg PO DAILY RF: 0 iron, carbonyl [Iron Chews] 15 mg Tablet,Chewable 30 mg PO DAILY RF: 0 Discontinued metformin 500 mg Tablet 500 mg PO BID RF: 0 clindamycin HCl 300 mg capsule 300 mg PO QID RF: 0 dexamethasone 4 mg tablet 8 mg PO DAILY RF: 0 Follow up/Referrals: Klever Jones MD [Physician] - 12/05/18 2:30 pm (*appt: 12/05 @ 2:30 check in for paperwork then a 3:[address] jones @ the [facility] [address] [place] [address] Hospital follow-up initially for DM management and new on insulin,. Then establish care. CAD s/p CABG) Provider Discharge Instructions Diet: Carb-consistent/Diabetic Activity: aS tolerated Visit Report/Discharge Packet Instructions: Complications of Type 2 Diabetes, Tips to Help You Stop Smoking, Low-Carbohydrate Diet (Alternative Therapy), Type 2 Diabetes, Carbohydrate- Counting Diet, How to Use an Insulin Pen Visit Report Forms: Stroke Signs & Symptoms Discharge Data Attending Provider: Chantal Burrell Admit Date/Time: 11/30/18 14:46
--- NOTE | 2018-12-04 10:22 | PT.IPTN ---
Current Diagnoses Type 2 diabetes mellitus with ketoacidosis without coma (11/30/18) Physical Therapy Treatment Note M2 PT-IP Current Condition Start: 12/02/18 15:02 Freq: NEEDED Status: Active Protocol: Document 12/02/18 15:03 [facility] (Rec: 12/02/18 15:12 [facility] [id number]) Physical Therapy Current Condition Current Condition Evaluation Date 12/02/18 Treatment Diagnosis dec balance M3 PT-IP Subjective Start: 12/02/18 15:02 Freq: NEEDED Status: Active Protocol: Document 12/04/18 09:50 [facility] (Rec: 12/04/18 10:22 [facility]GD [id number]) Subjective Physical Therapy Visit Type Type Patient Refusal Physical Therapy Visit Comments Patient Comments Pt refused, states he is going to take a shower and then is D/C home. Focus Recommendations To Nursing Amount of Assist Needed Standby Assistance Discharge Recommendations PT Discharge Recommendations Home Outpatient PT
--- NOTE | 2018-12-04 11:00 | CM.DPC ---
DCP/continued: Reviewed chart. Patient discharging from [facility] today. H[employer] VALUE ASSOCIATE confirmed patient does have appointment at [facility] on 12-05-18. No additional needs identified. P: Home today.
--- NOTE | 2018-12-04 11:23 | PC.NURSE ---
Discharge: Feels ready for d/c home. Reviewed insulin, how to give injection. Shown how to prime pen after cap placement and then adjust pen to correct dose. Pt gave own injection using correct tech for both the novolog and lantus insulins. Discussed low blood sugars. Has been having some liq/loose stools which are c-diff neg. This may be caused by his metformin and he is to let his md know if diarrhea conts or is a problem. He should never stop any of his diabetic meds on his own. If he has any problems with his diabetes he needs to discuss this w/md. Discussed sharps container/disposal and where to obtained equipment. SO/Spouse present at time of teaching. Questions answered. He feels ready to d/c home. Other d/c instructions given by Shereen ESCUDERO. Pt d/c home via auto w/spouse.
== END 2018-12-04 11:10 | disposition home or self-care (01) | DRG 637 ==
LOC: ED 14:34 → AC 14:57
PROVIDERS: Internal Medicine; Admitting Provider Internal Medicine; Emergency Provider Emergency Medicine; Visit Provider Internal Medicine
DX: E11.10 Type 2 diabetes mellitus with ketoacidosis without coma (principal); E43 Unspecified severe protein-calorie malnutrition; E87.2 Acidosis; Z68.1 Body mass index [BMI] 19.9 or less, adult; K04.7 Periapical abscess without sinus; I25.10 Atherosclerotic heart disease of native coronary artery without angina pectoris; Z95.1 Presence of aortocoronary bypass graft; F17.210 Nicotine dependence, cigarettes, uncomplicated; D50.0 Iron deficiency anemia secondary to blood loss (chronic); R19.7 Diarrhea, unspecified; I95.1 Orthostatic hypotension; E78.5 Hyperlipidemia, unspecified
CPT/HCPCS: 36415; 36591; 51798; 71045; 80048; 80053; 81001; 82009; 82607; 82805; 82962; 83036; 83605; 83735; 84100; 85025; 87077; 87086; 87493; 93005; 94760; 94762; 96361; 96374; 97116; 97161; 99284; 99285; 99406; J1644

== ENCOUNTER 2019-03-14 13:10 | Emergency (ER) | payer MEDICARE, SELFPAY ==
[2018-11-30 16:43] VITALS: BMI 16.9
[2019-03-14 13:18] VITALS: BP 144/86; PULSE 89; RESP 20; TEMP 36.4; O2SAT 100
[2019-03-14 13:50] LABS: Add Manual Diff / Slide Review NO; Basophils Absolute Auto 100 /uL (0-100); Basophils Percent Auto 0.8 % (0-2); Eosinophils Absolute Auto 400 /uL (0-450); Eosinophils Percent Auto 4.9 % (2-4); Hemoglobin 12.9 g/dL (13.5-17.5); Lymphocytes Absolute Auto 2500 /uL (1100-4500); Lymphocytes Percent Auto 34.4 % (25-40); Mean Corpuscular HGB Conc 33.9 % (30-36); Mean Corpuscular Hemoglobin 30.2 PG (26-34); Mean Corpuscular Volume 89.2 fL (80-100); Monocytes Absolute Auto 400 /uL (0-900); Monocytes Percent Auto 5.2 % (3-14); Neutrophils Absolute Auto 3900 /uL (1500-7000); Neutrophils Percent Auto 54.7 % (50-75); Platelet Count 210 X10^3/uL (150-400); Red Blood Cell Count 4.26 X10^6/uL (4.5-5.9); Red Cell Distribution Width 12.8 % (11.6-14.8); White Blood Cell Count 7.1 X10^3/uL (4.5-11.0)
[2019-03-14 14:01] LABS: Alanine Aminotransferase 24 IU/L (21-72); Albumin 4.5 g/dL (3.5-5.0); Albumin Globulin Ratio 1.6 (1.0-2.8); Alkaline Phosphatase 60 U/L (38-126); Aspartate Aminotransferase 18 IU/L (17-59); BUN Creatinine Ratio 26.7 (6-22); Bilirubin Total 0.3 mg/dL (0.2-1.3); Blood Urea Nitrogen 24 mg/dL (9-20); Calcium 10.1 mg/dL (8.4-10.2); Carbon Dioxide 24 mmol/L (22-32); Chloride 96 mmol/L (98-107); Estimated Glomerular Filt Rate > 60.0 mL/min (>60); Globulin 2.8 g/dL (1.7-4.1); Glucose 311 mg/dL (80-110); HEMOLYSIS < 15 (0-50); Potassium 4.3 mmol/L (3.4-5.1); Sodium 135 mmol/L (137-145); Total Protein 7.3 g/dL (6.3-8.2)
[2019-03-14 16:04] LABS: Appearance Urine UA CLEAR; Bacteria Urine None Seen; Bilirubin Urine UA NEGATIVE (NEGATIVE); Color Urine UA YELLOW; Glucose Urine UA 2+ g/dL (Negative); Ketones Urine UA NEGATIVE (NEGATIVE); Leukocyte Esterase Urine UA NEGATIVE (NEGATIVE); Nitrite Urine UA NEGATIVE (Negative); Occult Blood Urine UA NEGATIVE (Negative); Protein Urine UA 1+ (Negative); RBC Urine None Seen (0-5/HPF); Urobilinogen Urine UA 0.2 E.U./dL (0.2); WBC Urine None Seen (0-5/HPF)
[2019-03-14 16:14] LABS: Culture Indicated Urine Cult Not Indicated; Urine Comments Microscopic Normal
[2019-03-14] MEDS: KETOROLAC 60 MG/2 ML VIAL 30 MG IM (16:38)
[2019-03-14] MEDS: METHOCARBAMOL 500 MG TABLET PO (16:38)
[2019-03-14 16:40] VITALS: BP 154/89; PULSE 80; RESP 18; O2SAT 100
--- NOTE | 2019-03-14 20:10 | ED_ITS ---
HPI - Back Pain/Injury <BEN Guerra - Last Filed: 03/14/19 20:10> General Chief Complaint: Back Pain/Injury Stated Complaint: back pain, concerned about kidney infection Time Seen by Provider: 03/14/19 15:45 Source: patient and family Mode of arrival: ambulatory Limitations: no limitations History of Present Illness HPI Narrative: The patient is a 63-year-old girl who presents with his with a chief complaint of left-sided lower back pain. he does have history of diabetes and is concerned that he has an infection. He states he has been happening for several days. He denies any weakness, numbness, tingling or incontinence. He denies any dysuria urgency or frequency. he states blood sugars have been elevated in the 200-300 range. He has not followed up with primary care provider. Related Data Home Medications Medication Instructions Recorded Confirmed aspirin [Aspir-81] 81 mg PO DAILY 11/30/18 11/30/18 atorvastatin 40 mg PO DAILY 11/30/18 03/14/19 hydrocodone-acetaminophen 1 tab PO Q6HR PRN 11/30/18 11/30/18 iron, carbonyl [Iron Chews] 30 mg PO DAILY 11/30/18 11/30/18 insulin glargine [Lantus Solostar 03/14/19 U-100 Insulin] metformin 500 mg PO BID 03/14/19 03/14/19 Previous Rx's Medication Instructions Recorded methocarbamol [Robaxin] 500 mg PO TID PRN #20 tab 03/14/19 Allergies Allergy/AdvReac Type Severity Reaction Status Date / Time Penicillins Allergy Intermediate Hives Verified 11/30/18 12:14 Review of Systems <BEN Guerra - Last Filed: 03/14/19 20:10> Review of Systems GENERAL: Denies chills, fatigue, malaise, fever, sweats. HEENT: Denies sinus pain, ear pain, sore throat, difficulty swallowing, dizziness. RESPIRATORY: Denies dyspnea, cough, wheezing, hemoptysis, sputum. CARDIOVASCULAR: Denies chest pain, palpitations, orthopnea, edema, GASTROINTESTINAL: Denies nausea, vomiting, abdominal pain, diarrhea, constipation, melena. : Denies dysuria, frequency, incontinence, hematuria, urinary retention. MUSCULOSKELETAL: See HPI SKIN: Denies rash, skin lesions, or other NEUROLOGIC: Denies weakness, headache, numbness, change in speech, confusion, seizures, incoordination. PSYCHIATRIC: No concerning psychosocial issues. 12 point review of systems is negative except for those stated above PFSH <BEN Guerra - Last Filed: 03/14/19 20:10> Medical History Coronary artery disease (Acute) Diabetes (Acute) Esophageal polyp (Acute) High cholesterol (Acute) Iron deficiency anemia (Acute) Surgical History Hx of CABG (Acute) Stented coronary artery (Acute) Family History Mother No problems noted. Father No problems noted. Brother No problems noted. Sister No problems noted. Social History (Updated 11/30/18 @ 13:19 by Anais Toro DO) household members: spouse Smoking Status: Current every day smoker alcohol intake: current substance use type: does not use Family History Mother No problems noted. Father No problems noted. Brother No problems noted. Sister No problems noted. Social History household members: spouse Smoking Status: Current every day smoker alcohol intake: current substance use type: does not use Exam <BEN Guerra - Last Filed: 03/14/19 20:10> Narrative Exam Narrative: GENERAL: This is a well-nourished, well-developed patient, sitting on stretcher in no acute distress HEAD: Atraumatic. Normocephalic. No temporal or scalp tenderness. EYES: Pupils equal round and reactive. Extraocular motions intact. No scleral icterus. No injection or drainage. ENT: Nose without bleeding, purulent drainage or septal hematoma. Throat without erythema, tonsillar hypertrophy or exudate. Uvula midline. Airway patent. NECK: Trachea midline. No JVD or lymphadenopathy. Supple, nontender, no meningeal signs. CARDIOVASCULAR: Regular rate and rhythm without murmurs, gallops, or rubs. RESPIRATORY: Clear to auscultation. Breath sounds equal bilaterally. No wheezes, rales, or rhonchi. GASTROINTESTINAL: Abdomen soft, non-tender, nondistended. No hepato- splenomegaly, or palpable masses. No guarding. EXTREMITIES: No clubbing, cyanosis, or edema. No joint tenderness, effusion, or edema noted. BACK: Nontender without deformity or crepitance. No flank tenderness. no pain to see under spinal palpation. Patient has pain on left paraspinal palpation of lumbar area. No CVA tenderness noted bilaterally. NEURO: AOx3. SKIN: No rash or erythema. Initial Vital Signs Initial Vital Signs: Vital Signs Temperature 97.6 F 03/14/19 13:18 Pulse Rate 89 03/14/19 13:18 Respiratory Rate 20 03/14/19 13:18 Blood Pressure 144/86 H 03/14/19 13:18 Pulse Oximetry 100 03/14/19 13:18 <Anais Toro DO - Last Filed: 03/15/19 19:39> Initial Vital Signs Initial Vital Signs: Vital Signs Temperature 97.6 F 03/14/19 13:18 Pulse Rate 89 03/14/19 13:18 Respiratory Rate 20 03/14/19 13:18 Blood Pressure 144/86 H 03/14/19 13:18 Pulse Oximetry 100 03/14/19 13:18 Course <BEN Guerra - Last Filed: 03/14/19 20:10> Orders Ordered: Discontinued Medications Ketorolac Tromethamine (Toradol) 30 mg IM NOW ONE Stop: 03/14/19 16:25 Last Admin: 03/14/19 16:38 Dose: 30 mg Methocarbamol (Robaxin) 500 mg PO NOW ONE Stop: 03/14/19 16:25 Last Admin: 03/14/19 16:38 Dose: 500 mg Vital Signs - 8 hr 03/14/19 13:18 03/14/19 16:40 Temperature 97.6 F Pulse Rate 89 80 Respiratory Rate 20 18 Blood Pressure 144/86 H Blood Pressure [Right Arm] 154/89 H Pulse Oximetry 100 100 <Anais Toro DO - Last Filed: 03/15/19 19:39> Orders Ordered: Discontinued Medications Ketorolac Tromethamine (Toradol) 30 mg IM NOW ONE Stop: 03/14/19 16:25 Last Admin: 03/14/19 16:38 Dose: 30 mg Methocarbamol (Robaxin) 500 mg PO NOW ONE Stop: 03/14/19 16:25 Last Admin: 03/14/19 16:38 Dose: 500 mg Vital Signs - 8 hr 03/14/19 13:18 03/14/19 16:40 Temperature 97.6 F Pulse Rate 89 80 Respiratory Rate 20 18 Blood Pressure 144/86 H Blood Pressure [Right Arm] 154/89 H Pulse Oximetry 100 100 MDM - Back Pain/Injury <PABLITO Guerra- - Last Filed: 03/14/19 20:10> Lab Data Result diagrams: 03/14/19 13:40 03/14/19 13:40 Lab Results 03/14/19 03/14/19 03/14/19 Range/Units 13:40 13:40 Unknown WBC 7.1 (4.5-11.0) X10^3/uL RBC 4.26 L (4.5-5.9) X10^6/uL Hgb 12.9 L (13.5-17.5) g/dL Hct 38.0 L (41-53) % MCV 89.2 (80-100) fL MCH 30.2 (26-34) PG MCHC 33.9 (30-36) % RDW 12.8 (11.6-14.8) % Plt Count 210 (150-400) X10^3/uL Neut % (Auto) 54.7 (50-75) % Lymph % (Auto) 34.4 (25-40) % [place] % (Auto) 5.2 (3-14) % Eos % (Auto) 4.9 H (2-4) % Baso % (Auto) 0.8 (0-2) % Neut # (Auto) 3900 (9493-0165) /uL Lymph # (Auto) 2500 (1003-2795) /uL [place] # (Auto) 400 (0-900) /uL Eos # (Auto) 400 (0-450) /uL Baso # (Auto) 100 (0-100) /uL Sodium 135 L (137-145) mmol/L Potassium 4.3 (3.4-5.1) mmol/L Chloride 96 L (98-107) mmol/L Carbon Dioxide 24 (22-32) mmol/L BUN 24 H (9-20) mg/dL Creatinine 0.90 (0.66-1.25) mg/dL Estimated GFR > 60.0 (>60) mL/min BUN/Creatinine Ratio 26.7 H (6-22) Glucose 311 H (80-110) mg/dL Calcium 10.1 (8.4-10.2) mg/dL Total Bilirubin 0.3 (0.2-1.3) mg/dL AST 18 (17-59) IU/L ALT 24 (21-72) IU/L Alkaline Phosphatase 60 (38-126) U/L Total Protein 7.3 (6.3-8.2) g/dL Albumin 4.5 (3.5-5.0) g/dL Globulin 2.8 (1.7-4.1) g/dL Albumin/Globulin Ratio 1.6 (1.0-2.8) Urine Color Yellow Urine Appearance Clear Urine pH 5.0 (4.5-8.0) Ur Specific [place] 1.020 (1.000-1.035) Urine Protein 1+ H (Negative) Urine Glucose (UA) 2+ H (Negative) g/dL Urine Ketones Negative (NEGATIVE) Urine Occult Blood Negative (Negative) Urine Nitrate Negative (Negative) Urine Bilirubin Negative (NEGATIVE) Urine Urobilinogen 0.2 (0.2) E.U./dL Ur Leukocyte Esterase Negative (NEGATIVE) Urine RBC None seen (0-5/HPF) Urine WBC None seen (0-5/HPF) Urine Bacteria None seen (None) Ur Culture Indicated? Cult not indicated Micro UA Comment Microscopic normal MDM Narrative Medical decision making narrative: The patient is a 63-year-old male who presents with chief complaint of left lower back pain. He is concerned about a urinary tract infection. He has a clean UA and his kidney function was within normal limits. given that he has pain on palpation of his left lumbar paraspinal muscle, believe he is having some muscle spasm. We treated him in the emergency department Toradol and Robaxin any stated his pain went away completely. I did give him a prescription of Robaxin and encouraged him to follow up with primary care provider. Discussed at length monitoring for acute concerns return precautions including incontinence of bowel or bladder, saddle anesthesia chest pain or shortness of breath. patient and have no questions or concerns upon discharge. <Anais Toro, DO - Last Filed: 03/15/19 19:39> Lab Data Lab Results 03/14/19 03/14/19 03/14/19 Range/Units 13:40 13:40 Unknown WBC 7.1 (4.5-11.0) X10^3/uL RBC 4.26 L (4.5-5.9) X10^6/uL Hgb 12.9 L (13.5-17.5) g/dL Hct 38.0 L (41-53) % MCV 89.2 (80-100) fL MCH 30.2 (26-34) PG MCHC 33.9 (30-36) % RDW 12.8 (11.6-14.8) % Plt Count 210 (150-400) X10^3/uL Neut % (Auto) 54.7 (50-75) % Lymph % (Auto) 34.4 (25-40) % [place] % (Auto) 5.2 (3-14) % Eos % (Auto) 4.9 H (2-4) % Baso % (Auto) 0.8 (0-2) % Neut # (Auto) 3900 (9574-7739) /uL Lymph # (Auto) 2500 (7499-3610) /uL [place] # (Auto) 400 (0-900) /uL Eos # (Auto) 400 (0-450) /uL Baso # (Auto) 100 (0-100) /uL Sodium 135 L (137-145) mmol/L Potassium 4.3 (3.4-5.1) mmol/L Chloride 96 L (98-107) mmol/L Carbon Dioxide 24 (22-32) mmol/L BUN 24 H (9-20) mg/dL Creatinine 0.90 (0.66-1.25) mg/dL Estimated GFR > 60.0 (>60) mL/min BUN/Creatinine Ratio 26.7 H (6-22) Glucose 311 H (80-110) mg/dL Calcium 10.1 (8.4-10.2) mg/dL Total Bilirubin 0.3 (0.2-1.3) mg/dL AST 18 (17-59) IU/L ALT 24 (21-72) IU/L Alkaline Phosphatase 60 (38-126) U/L Total Protein 7.3 (6.3-8.2) g/dL Albumin 4.5 (3.5-5.0) g/dL Globulin 2.8 (1.7-4.1) g/dL Albumin/Globulin Ratio 1.6 (1.0-2.8) Urine Color Yellow Urine Appearance Clear Urine pH 5.0 (4.5-8.0) Ur Specific [place] 1.020 (1.000-1.035) Urine Protein 1+ H (Negative) Urine Glucose (UA) 2+ H (Negative) g/dL Urine Ketones Negative (NEGATIVE) Urine Occult Blood Negative (Negative) Urine Nitrate Negative (Negative) Urine Bilirubin Negative (NEGATIVE) Urine Urobilinogen 0.2 (0.2) E.U./dL Ur Leukocyte Esterase Negative (NEGATIVE) Urine RBC None seen (0-5/HPF) Urine WBC None seen (0-5/HPF) Urine Bacteria None seen (None) Ur Culture Indicated? Cult not indicated Micro UA Comment Microscopic normal Discharge Plan Departure Patient Disposition: Home Clinical Impression: Strain of lumbar region Qualifiers: Encounter type: initial encounter Qualified Code(s): S39.012A - Strain of muscle, fascia and tendon of lower back, initial encounter Discharge Date/Time: 03/14/19 17:36 Interventions: ED Discharge Assessment Last Done: 03/14/19 17:35 Instructions: DI for Back Spasm, DI for Back Strain or Sprain Activity Restrictions/Additional Instructions: I have given you a prescription of a muscle relaxer for her back pain. please follow up with her primary care provider. I am giving you contact information for the [facility] [place], who can help you find a new primary care provider if needed. You can contact them at [phone]. Please continue ibuprofen and/or Tylenol as needed. Please come back to the emergency department if you have any incontinence, or numbness in the groin region or if you have any acute concerns such as chest pain or shortness of breath. Prescriptions: New methocarbamol [Robaxin] 500 mg tablet 500 mg PO TID PRN (Reason: muscle spasm) Qty: 20 RF: 0 No Action atorvastatin 40 mg tablet 40 mg PO DAILY RF: 0 hydrocodone-acetaminophen 5-325 mg tablet 1 tab PO Q6HR PRN (Reason: dental pain) RF: 0 aspirin [Aspir-81] 81 mg Tablet,Delayed Release (/Ec) 81 mg PO DAILY RF: 0 iron, carbonyl [Iron Chews] 15 mg Tablet,Chewable 30 mg PO DAILY RF: 0 metformin 500 mg tablet 500 mg PO BID RF: 0 Lantus Solostar U-100 Insulin 100 unit/mL (3 mL) insulin pen RF: 0 <Anais Toro DO - Last Filed: 03/15/19 19:39> Cosign ED Attending Cosignature Attestation: I was immediately available in the department for consultation, patient appears to have hyperglycemia, no anion gap, bicarb is normal, no ketones. This documentation has been reviewed and I agree with assessment and plan. Supervised by Anais Toro DO
== END 2019-03-14 17:36 | disposition home or self-care (01) ==
PROVIDERS: Emergency Medicine; Emergency Provider Nurse Practitioner Family
DX: S39.012A Strain of muscle, fascia and tendon of lower back, initial encounter (principal)
CPT/HCPCS: 36415; 80053; 81001; 85025; 96372; 99283; J1885

== ENCOUNTER → 2019-03-18 12:59 | Outpatient (CLI) | payer MEDICARE, SELFPAY ==
[2018-11-30 16:43] VITALS: BMI 16.9
[2019-03-18 14:11] LABS: Hematocrit 35.6 % (41-53); Hemoglobin 12.3 g/dL (13.5-17.5); Mean Corpuscular HGB Conc 34.5 % (30-36); Mean Corpuscular Hemoglobin 30.2 PG (26-34); Mean Corpuscular Volume 87.7 fL (80-100); Platelet Count 221 X10^3/uL (150-400); Red Blood Cell Count 4.05 X10^6/uL (4.5-5.9); Red Cell Distribution Width 12.9 % (11.6-14.8); White Blood Cell Count 6.7 X10^3/uL (4.5-11.0)
[2019-03-18 14:57] LABS: Alanine Aminotransferase 23 IU/L (21-72); Albumin 4.2 g/dL (3.5-5.0); Albumin Globulin Ratio 1.7 (1.0-2.8); Alkaline Phosphatase 74 U/L (38-126); Aspartate Aminotransferase 18 IU/L (17-59); Bilirubin Total 0.3 mg/dL (0.2-1.3); Bilirubin Unconjugated 0.2 mg/dL (0.0-1.1); Globulin 2.5 g/dL (1.7-4.1); HEMOLYSIS 35 (0-50); Total Protein 6.7 g/dL (6.3-8.2)
== END ==
PROVIDERS: Family Provider Internal Medicine; Visit Provider Podiatrist
DX: B35.1 Tinea unguium (principal)
CPT/HCPCS: 36415; 80076; 85027

== ENCOUNTER → 2019-03-18 13:02 | Outpatient (CLI) | payer MEDICARE, SELFPAY ==
[2018-11-30 16:43] VITALS: BMI 16.9
--- NOTE | 2019-03-18 | DI.RAD.S_ITS ---
PROCEDURE: XR LUMBAR SPINE 2-3V INDICATIONS: LBP, SCIATICA TECHNIQUE: 3 views of the lumbar spine were acquired. COMPARISON: None. FINDINGS: Bones: 5 [id number] vertebrae are present. There is mild levoscoliosis; otherwise normal alignment. No vertebral body compression fractures. No suspicious bony lesions. There is mild degenerative disc disease at L2-L3, L3-L4 and L4-L5, and moderate degenerative disc disease at L5-S1. There is moderate facet arthropathy at L4-L5 and L5-S1. Soft tissues: Overlying bowel gas pattern is normal. Vascular calcifications consistent with atherosclerosis. IMPRESSION: Degenerative disc and facet disease in lumbar spine. Dictated by: Ke Thrasher M.D. on 03/18/2019 at 17:03 Approved by: Ke Thrasher M.D. on 03/18/2019 at 17:05
== END ==
PROVIDERS: Visit Provider Internal Medicine
DX: M51.16 Intervertebral disc disorders with radiculopathy, lumbar region (principal); M51.17 Intervertebral disc disorders with radiculopathy, lumbosacral region; M47.26 Other spondylosis with radiculopathy, lumbar region; M47.27 Other spondylosis with radiculopathy, lumbosacral region
CPT/HCPCS: 72100

== ENCOUNTER → 2019-03-28 08:42 | Outpatient (CLI) | payer MEDICARE, SELFPAY ==
[2018-11-30 16:43] VITALS: BMI 16.9
--- NOTE | 2019-03-28 | DI.MRI.S_ITS ---
PROCEDURE: MR LUMBAR SPINE WO CON INDICATIONS: SCIATICA LEFT SIDE TECHNIQUE: Noncontrast sagittal T1 spin echo and T2 fast echo, sagittal STIR, axial T1 and T2 fast spin echo through the lumbar spine. In cases with scoliosis, additional coronal T2 fast spin echo may be performed. COMPARISON: [facility], CR, XR LUMBAR SPINE 2-3V, 03/18/2019, 13:18. FINDINGS: Image quality: Excellent. Alignment and Curvature: 5 lumbar type vertebral is present by plain film. Mild, grade 1 retrolisthesis of L5 on S1.. There is otherwise normal bony alignment. Bone Marrow: Marrow is of normal overall signal. No acute vertebral body compression fractures. There is mild reactive signal within the endplates adjacent to the L2-L3, L3-L4, L4-L5, and L5-S1 intervertebral discs. Spinal Cord: Conus medullaris terminates at the lower L1 level. Visualized cord demonstrates normal signal and size. Paraspinous Soft Tissues: No paravertebral masses. L1-L2: Normal appearance. L2-L3: Mild disc desiccation. Mild facet and ligamentum flavum hypertrophy. Mild canal stenosis. No foraminal stenosis. L3-L4: Mild disc desiccation and diffuse disc bulge. Mild facet and ligamentum flavum hypertrophy. Mild epidural lipomatosis. Mild canal stenosis. Mild bilateral foraminal stenosis. L4-L5: Mild disc height loss and desiccation. Mild diffuse disc bulge with small superimposed broad-based left for lateral protrusion. Mild facet and ligamentum flavum hypertrophy. Mild canal stenosis. Mild left greater than right foraminal stenosis. L5-S1: Moderate disc height loss and desiccation. Moderate diffuse disc bulge/osteophyte. Mild facet hypertrophy bilaterally. Mild canal stenosis. Moderate subarticular foraminal stenosis, right greater than left. IMPRESSION: 1. Multilevel degenerative disc and facet disease, as well as ligamentum flavum hypertrophy and epidural lipomatosis. 2. Mild multilevel canal stenoses. 3. Multilevel foraminal stenoses, worst at L5-S1 bilaterally, where there are moderate foraminal stenoses present. Dictated by: Anabel Rodríguez M.D. on 03/28/2019 at 9:37 Approved by: Anabel Rodríguez M.D. on 03/28/2019 at 9:42
== END ==
PROVIDERS: Visit Provider Internal Medicine
DX: M54.32 Sciatica, left side (principal); M47.26 Other spondylosis with radiculopathy, lumbar region; M47.27 Other spondylosis with radiculopathy, lumbosacral region; M48.061 Spinal stenosis, lumbar region without neurogenic claudication; M48.07 Spinal stenosis, lumbosacral region; E88.2 Lipomatosis, not elsewhere classified
CPT/HCPCS: 72148

== ENCOUNTER → 2019-06-03 10:43 | Outpatient (CLI) | payer MEDICARE, SELFPAY ==
[2018-11-30 16:43] VITALS: BMI 16.9
[2019-06-03 11:36] LABS: Hemoglobin A1C% w Est Avg Glu 9.9 % (4.0-6.0)
[2019-06-03 11:40] LABS: Alanine Aminotransferase 10 IU/L (21-72); Albumin 4.1 g/dL (3.5-5.0); Albumin Globulin Ratio 1.5 (1.0-2.8); Alkaline Phosphatase 81 U/L (38-126); Aspartate Aminotransferase 13 IU/L (17-59); BUN Creatinine Ratio 18.8 (6-22); Bilirubin Total 0.5 mg/dL (0.2-1.3); Blood Urea Nitrogen 15 mg/dL (9-20); Calcium 9.7 mg/dL (8.4-10.2); Carbon Dioxide 25 mmol/L (22-32); Chloride 99 mmol/L (98-107); Estimated Glomerular Filt Rate > 60.0 mL/min (>60); Globulin 2.8 g/dL (1.7-4.1); Glucose 353 mg/dL (80-110); HEMOLYSIS < 15 (0-50); Potassium 4.1 mmol/L (3.4-5.1); Sodium 135 mmol/L (137-145); Total Protein 6.9 g/dL (6.3-8.2)
== END ==
PROVIDERS: Visit Provider Internal Medicine
DX: E11.9 Type 2 diabetes mellitus without complications (principal)
CPT/HCPCS: 36415; 80053; 83036

== ENCOUNTER → 2019-08-18 12:27 | Outpatient (CLI) | payer MEDICARE, SELFPAY ==
[2018-11-30 16:43] VITALS: BMI 16.9
[2019-08-18 13:42] LABS: Hematocrit 37.8 % (41-53); Mean Corpuscular HGB Conc 34.5 % (30-36); Mean Corpuscular Hemoglobin 30.2 PG (26-34); Mean Corpuscular Volume 87.8 fL (80-100); Platelet Count 277 X10^3/uL (150-400); Red Blood Cell Count 4.31 X10^6/uL (4.5-5.9); Red Cell Distribution Width 12.5 % (11.6-14.8); White Blood Cell Count 7.2 X10^3/uL (4.5-11.0)
[2019-08-18 14:14] LABS: BUN Creatinine Ratio 15.7 (6-22); Blood Urea Nitrogen 11 mg/dL (9-20); Calcium 10.1 mg/dL (8.4-10.2); Carbon Dioxide 25 mmol/L (22-32); Chloride 98 mmol/L (98-107); Estimated Glomerular Filt Rate > 60.0 mL/min (>60); Glucose 228 mg/dL (80-110); HEMOLYSIS < 15 (0-50); Potassium 3.8 mmol/L (3.4-5.1); Sodium 136 mmol/L (137-145)
[2019-08-18 14:59] LABS: Hemoglobin A1C% w Est Avg Glu 9.5 % (4.0-6.0)
[2019-08-20 16:00] LABS: Albumin 4.3 g/dL (3.5-5.0); Cholesterol 192 mg/dL (140-199); HDL Cholesterol 62 mg/dL (40-60); LDL Cholesterol Calculated 111 mg/dL (<100); Triglycerides 97 mg/dL (35-150)
== END ==
PROVIDERS: PCP Internal Medicine; Visit Provider Orthopaedic Surgery Orthopaedic Surgery of the Spine
DX: R73.9 Hyperglycemia, unspecified (principal); Z01.818 Encounter for other preprocedural examination
CPT/HCPCS: 36415; 80048; 80061; 82040; 83036; 85027

== ENCOUNTER → 2019-10-28 09:22 | Outpatient (CLI) | payer MEDICARE, SELFPAY ==
[2018-11-30 16:43] VITALS: BMI 16.9
--- NOTE | 2019-10-28 | DI.CT.S_ITS ---
PROCEDURE: CT ABDOMEN PELVIS W CON INDICATIONS: Lower abdominal pain, unspecified TECHNIQUE: After the administration of oral and intravenous contrast, 5 mm thick sections acquired from the diaphragms to the symphysis. 5 mm thick coronal and sagittal reformats were performed. For radiation dose reduction, the following was used: automated exposure control, adjustment of mA and/or kV according to patient size. COMPARISON: None. FINDINGS: Image quality: Excellent. ABDOMEN: Lung bases: Lung bases are clear. Heart size is normal. Solid organs: Liver is normal in size and enhancement. Gallbladder is unremarkable. Biliary system is non-dilated. Pancreas enhances normally. Spleen is normal in size and enhancement. Incidental splenule. No adrenal nodules. Kidneys are normal in size and enhancement, without hydronephrosis. Peritoneum and bowel: Stomach, small bowel, and colon loops are normal in caliber and wall thickness. No free fluid or air. There is a large amount of fecal material noted throughout the entire colon and rectum. No suspicious wall thickening or inflammatory stranding. No evidence for bowel obstruction. Nodes and vessels: No retroperitoneal or mesenteric adenopathy. Aorta and inferior vena cava are normal in caliber. Extensive scattered atherosclerotic calcifications of the abdominal aorta and iliac vessels without aneurysmal dilatation. There are atherosclerotic calcifications at the origins of the superior mesenteric artery and celiac trunk was opacification of the mesenteric vessels distally. The bilateral renal arteries also have moderate atherosclerotic calcifications at their origins without hemodynamically significant stenosis. Miscellaneous: No ventral hernias. PELVIS: Genitourinary: Bladder wall thickness is normal. Mild enlargement of the prostate gland. Miscellaneous: No inguinal hernias or adenopathy. Bones: No suspicious bony lesions. No acute vertebral body compression fractures. Multilevel spondylitic changes throughout the imaged spine. IMPRESSION: 1. CT abdomen and pelvis without acute abnormalities. 2. Large amount of fecal material noted throughout the entire colon and rectum. 3. Moderate atherosclerotic vascular disease of the abdominal aorta and mesenteric vessels without hemodynamically significant stenosis or aneurysmal dilatation. Findings were discussed telephonically with Dr. Garcia at 1635 hrs. Dictated by: Mariano Ortega M.D. on 10/28/2019 at 16:20 Approved by: Mariano Ortega M.D. on 10/28/2019 at 16:40
[2019-10-28 09:55] LABS: Bacteria Urine None Seen
[2019-10-28 10:04] LABS: Add Manual Diff / Slide Review NO; Basophils Absolute Auto 0 /uL (0-100); Basophils Percent Auto 0.8 % (0-2); Eosinophils Absolute Auto 100 /uL (0-450); Eosinophils Percent Auto 1.5 % (2-4); Hematocrit 35.6 % (41-53); Hemoglobin 12.3 g/dL (13.5-17.5); Lymphocytes Absolute Auto 2300 /uL (1100-4500); Lymphocytes Percent Auto 36.2 % (25-40); Mean Corpuscular HGB Conc 34.5 % (30-36); Mean Corpuscular Hemoglobin 30.5 PG (26-34); Mean Corpuscular Volume 88.7 fL (80-100); Monocytes Absolute Auto 400 /uL (0-900); Monocytes Percent Auto 6.4 % (3-14); Neutrophils Absolute Auto 3500 /uL (1500-7000); Neutrophils Percent Auto 55.1 % (50-75); Platelet Count 250 X10^3/uL (150-400); Red Blood Cell Count 4.01 X10^6/uL (4.5-5.9); White Blood Cell Count 6.3 X10^3/uL (4.5-11.0)
[2019-10-28 10:08] LABS: Appearance Urine UA CLEAR; Bilirubin Urine UA NEGATIVE (NEGATIVE); Color Urine UA YELLOW; Glucose Urine UA NEGATIVE (Negative); Ketones Urine UA TRACE (NEGATIVE); Leukocyte Esterase Urine UA NEGATIVE (NEGATIVE); Nitrite Urine UA NEGATIVE (Negative); Occult Blood Urine UA NEGATIVE (Negative); Protein Urine UA TRACE (Negative); Urobilinogen Urine UA 0.2 E.U./dL (0.2)
[2019-10-28 10:16] LABS: Alanine Aminotransferase 30 IU/L (<50); Albumin 4.7 g/dL (3.5-5.0); Albumin Globulin Ratio 1.6 (1.0-2.8); Alkaline Phosphatase 68 U/L (38-126); Aspartate Aminotransferase 24 IU/L (17-59); BUN Creatinine Ratio 31.4 (6-22); Bilirubin Total 0.8 mg/dL (0.2-1.3); Blood Urea Nitrogen 22 mg/dL (9-20); Calcium 10.5 mg/dL (8.4-10.2); Carbon Dioxide 22 mmol/L (22-32); Chloride 101 mmol/L (98-107); Estimated Glomerular Filt Rate > 60.0 mL/min (>60); Globulin 2.9 g/dL (1.7-4.1); Glucose 136 mg/dL (80-110); HEMOLYSIS < 15 (0-50); Potassium 4.6 mmol/L (3.4-5.1); Sodium 137 mmol/L (137-145); Total Protein 7.6 g/dL (6.3-8.2)
[2019-10-28 10:21] LABS: RBC Urine 0-1/HPF (0-5/HPF); Squamous Epithelial Cell Urine 1-5 /HPF (0-5/HPF); WBC Urine 0-1/HPF (0-5/HPF)
[2019-10-28 10:22] LABS: Culture Indicated Urine Cult Not Indicated; Sperm Urine 0-1
== END ==
PROVIDERS: PCP Internal Medicine; Visit Provider Internal Medicine
DX: R10.30 Lower abdominal pain, unspecified (principal); I70.0 Atherosclerosis of aorta; K55.1 Chronic vascular disorders of intestine
CPT/HCPCS: 36415; 74177; 80053; 81001; 85025; Q9967

== ENCOUNTER → 2019-11-12 09:32 | Outpatient (CLI) | payer MEDICARE, SELFPAY ==
[2018-11-30 16:43] VITALS: BMI 16.9
[2019-11-12 11:39] LABS: Vitamin B12 > 1000 pg/mL (239-931)
[2019-11-12 12:10] LABS: Free T4, Direct Thyroxine 1.07 ng/dL (0.78-2.19)
[2019-11-13 09:12] LABS: Cholesterol 150 mg/dL (140-199); HDL Cholesterol 72 mg/dL (40-60); LDL Cholesterol Calculated 61 mg/dL (<100); Triglycerides 84 mg/dL (35-150)
== END ==
PROVIDERS: PCP Internal Medicine; Visit Provider Internal Medicine
DX: Z12.5 Encounter for screening for malignant neoplasm of prostate (principal); E11.9 Type 2 diabetes mellitus without complications; G62.9 Polyneuropathy, unspecified; E78.5 Hyperlipidemia, unspecified
CPT/HCPCS: 36415; 80061; 82607; 83036; 84439; 84443; G0103

== ENCOUNTER 2019-12-17 06:02 | Inpatient (IN) | payer MEDICARE, SELFPAY ==
[2018-11-30 16:43] VITALS: BMI 16.9
[2019-12-03 10:54] VITALS: BMI 17.5
[2019-12-17] VITALS (13 sets, daily range): BP systolic 110–143; BP diastolic 66–80; PULSE 71–87; RESP 11–19; TEMP 35.6–36.8; O2SAT 98–100; BMI 16.3
--- NOTE | 2019-12-17 | DI.RAD.S_ITS ---
PROCEDURE: XR LUMBAR SPINE 2-3V INDICATIONS: L4-L5 HEMILAMINECTOMY, L5-S1 TLIF TECHNIQUE: 2 views of the lumbar spine were acquired. COMPARISON: [facility], , XR LUMBAR SPINE 2-3V, 03/18/2019, 13:18. FINDINGS: Bones: Immediate postoperative examination showing transverse pedicle screws and vertical fixation rods bilaterally crossing L5-S1 with an interbody disc cage prosthesis centrally positioned. Soft tissues: Overlying bowel gas pattern is normal. No suspicious soft tissue calcifications. IMPRESSION: Normal alignment established after posterior fusion procedure with interbody disc cage prosthesis centrally positioned at L5-S1. Dictated by: Rigo Judd M.D. on 12/17/2019 at 11:14 Approved by: Rigo Judd M.D. on 12/17/2019 at 11:15
[2019-12-17] MEDS: ACETAMINOPHEN 325 MG TABLET 975 MG PO (06:54)
[2019-12-17] MEDS: GABAPENTIN 300 MG CAPSULE PO ×2 (06:55→20:28)
[2019-12-17] MEDS: LACTATED RINGERS 1,000 ML 42 ML IV ×2 (07:25→09:20)
[2019-12-17] MEDS: CELECOXIB 200 MG CAPSULE 400 MG PO (07:31)
[2019-12-17] MEDS: CLINDAMYCIN 600 MG/50 ML PIGGYBACK 50 MG IV (07:49)
--- NOTE | 2019-12-17 07:54 | PM.PREOP ---
Pre-operative Note Interval Note History & Physical reviewed/Exam performed by Physician: Yes Changes to H&P: No
--- NOTE | 2019-12-17 08:23 | SUR.OPER ---
Prone on spine table, head in foam head support, padded chest and pelvic supports, gel pad at knees, lower legs supported by pillows; nipples, genitalia and toes free of pressure, arms secured on foam padded arm boards at <90 degrees abduction. Tape over blanket at thigh secured to table.
[2019-12-17] MEDS: BUPIVACAINE LIPOSOME 266 MG/20 ML VIAL INJ (10:24)
[2019-12-17] MEDS: BUPIVACAINE 0.25% W/ EPI (PF) 10 ML VIAL 30 ML INJ (10:24)
--- NOTE | 2019-12-17 10:42 | P.OP_ITS ---
Operative Date/Time/Diagnoses Date of procedure: 12/17/19 Time of procedure: 08:10 Pre-op diagnosis: 1. L4-5, L5-S1 spinal stenosis 2. L4-5, L5-S1 spondylosis with radiculopathy Post-op diagnosis: same Procedure & Clinicians Procedure: 1. L5-S1 Postero-lateral and posterior interbody fusion 2. L5-S1 interbody cage placement. 3. L5-S1 decompressive laminectomy with bilateral facetecomies 4. L5-S1 Posterior non-segmental instrumentation 5. L4-5 left hemilaminectomy 6. [place] of bone marrow from iliac crest 7. Utilization of microsurgical technique and operating microscope Same procedure as scheduled: Yes Indications: Patient has been having chronic back pain and worsening lumbar radiculopathy. Patient failed multiple conservative management with worsening pain weakness and numbness in her lower extremity. Patient has been having difficulty performing activity of daily living. After discussing risks benefits of treatment options, patient elected proceed with surgery. Surgeon: Seema Arguello Block Machine Operator: Maribell Denton'Brien Click Yes if Unassisted: No Anesthesia Type: General Operative Notes Closure Type: primary Specimen(s): none sent Prosthetic devices, grafts, tissues, transplants, or devices: Globus revolve screws, Rise cage Estimated Blood Loss (mL): 50 Blood products transfused: none Procedure in detail: Patient was seen in the preoperative area. Risks and benefits of the surgery was discussed with the patient. Informed consent was obtained from the patient and placed in the chart. Surgical site was marked. Patient was taken to the operative room. General anesthesia was administered. Prophylactic antibiotic was given to the patient less than 30 min before the incision was made. Patient was placed into a prone position on the Dorian table. Patient's back was then prepped and draped in the sterile fashion. Time- out was performed at this time. Using AP and lateral C-arm imaging the interval between L4-5 L5-S1 was identified and marked on patient's back. A 2 inch incision 2 in from midline was made on the left side first. The fascia was incised in line with skin incision. Globus MARS retractors was placed inside the incision and docked onto the L5 lamina. Using microsurgical technique and operating microscope, a L5 laminectomy and L5-S1 facetectomy was performed using a Kerrison rongeur. Patient was found have severe neuroforaminal stenosis which was fully decompressed after the total facetectomy was completed on the left side. This rendered the L5-S1 level grossly unstable and require a fusion procedure at this time. The disc space at L5-S1 was identified. And a total diskectomy was performed at L5-S1 level. The endplates were decorticated using a rasp and shaver. The total diskectomy and decortication was performed at L5-S1 level in order to to accomplish a L5-S1 fusion. The local bone from the laminectomy and facetectomy was saved for local bone grafting. After the total diskectomy and decortication was completed, DBM bone graft material was combined with local bone that was harvested earlier. At this time, a separate skin is incision was made over the iliac crest. A Jamshidi needle was inserted into the iliac crest through a separate skin incision. 5 cc of bone marrow aspiration was obtained through the separate skin incision using a Jamshidi needle from the iliac crest. The bone marrow aspiration was combined with local bone and the via cell bone grafting material. The bone grafting material was placed into the L5-S1 interbody space along with a expandable cage. The cage was expanded to its maximum height using the torque limiting screwdriver. At this time the MARS retractor was redirected over the L4 lamina. Using microsurgical technique and operating microscope, a L4-5 heminectomy was performed using the Kerrison rongeur. The ligamentum flavum was also resected at the side of the hemilaminectomy for further decompression of the epidural space. At this time a mirror image incision was made on the right side. The fascia was incised in line with the skin incision. Globus MARS retractor was inserted and docked onto the L5-S1 posterolateral gutter. Using the power drill, posterior- lateral decortication was performed at L5-S1 level until bleeding cortical bone was identified. The remaining bone grafting material was placed into the L5-S1 posterior lateral gutter he order to accomplish posterolateral fusion at the L5- S1 level. Using the double C-arm technique, pedicle screws were placed into the L5 and S1 pedicles bilaterally. This was done by placing the Jamshidi needle into the pedicles, then placing the guidewires over the Jamshidi needle, and finally placing the cannulated screws over the guidewires bilaterally. After the pedicle screws were placed, 2 titanium rods was locked into the heads of the pedicle screws using locking caps and torque limiting screwdriver. After all the hardware was placed, and confirmed with AP and lateral C-arm imaging, the wound was then irrigated with sterile normal saline and packed with Ray-Lacy gauze for 3 min to accomplish hemostasis. After the gauze was removed the deep fascia was closed with #1 Vicryl suture. The subcutaneous layer was closed with 2-0 Vicryl. The skin was closed with skin tray. Patient tolerated the procedure well. There were no complications. Complications: none Post-operative Condition: stable Disposition: PACU Plan for aftercare: Admit to inpatient hospital
[2019-12-17] MEDS: HYDROMORPHONE 2 MG INJ IV ×2 (10:54→11:12)
--- NOTE | 2019-12-17 11:07 | SUR.PHASEI ---
Warm blankets given. Tolerating ice chips without difficulty.
[2019-12-17] MEDS: SODIUM CHLORIDE 0.9% 1,000 ML 100 ML IV ×2 (13:25→22:16)
[2019-12-17] MEDS: OXYCODONE IR 5 MG TABLET 10 MG PO ×3 (13:47→20:28)
[2019-12-17] MEDS: CEFAZOLIN 1 GM/50 ML FROZ.PIGGY IV (15:49)
--- NOTE | 2019-12-17 15:54 | PC.NURSE ---
Addendum entered by Amarilys Pro R.N. 12/17/19 23:07: Patient denies need to void, ambulated into bathroom and attempted to void, patient unsuccessful. Bladder scanned for 450cc. In and out cath for 800cc, clear yellow urine. Original Note: Patient reports pain to back 3/10 reports oxycodone at 1350 helped. Patient in and out cath by director industrial nursing and instructor for 650cc.
--- NOTE | 2019-12-17 16:38 | PT-IP ANOTE ---
checked on pt and pt reporting 4/10 pain but refused PT stated that pain is too much for him to move.
[2019-12-17] MEDS: METFORMIN HCL 500 MG TABLET 1000 MG PO (20:28)
[2019-12-17] MEDS: MAG HYDROX/ALUM/SIMETH 30 ML UDC PO (20:28)
[2019-12-17] MEDS: SENNOSIDES 8.6 MG TABLET 17.2 MG PO (20:28)
[2019-12-17] MEDS: DOCUSATE 100 MG CAPSULE PO (20:28)
[2019-12-18] VITALS (7 sets, daily range): BP systolic 107–145; BP diastolic 57–71; PULSE 68–86; RESP 16–18; TEMP 36.7–37.4; O2SAT 96–100
[2019-12-18] MEDS: CEFAZOLIN 1 GM/50 ML FROZ.PIGGY IV (00:32)
[2019-12-18] MEDS: OXYCODONE IR 5 MG TABLET 10 MG PO ×6 (00:34→23:41)
[2019-12-18] MEDS: LEVOTHYROXINE 50 MCG TABLET PO (05:57)
--- NOTE | 2019-12-18 06:16 | PC.NURSE ---
NOC Note: Pt reports feeling the urge to void, minimal success while in bed, bladder scan was 774 at 0600. Pt requested more time to void and ambulated to the bathroom with some success. Pt was able to void 100cc while standing and has declined any type of cath at this time. He feels he will be able to go naturally if given more time. Drsg to back was reinforces with hypafix tape at this time, 3 pin point spots of drainage noted to drsg.
[2019-12-18] MEDS: METFORMIN HCL 500 MG TABLET 1000 MG PO (07:45)
[2019-12-18] MEDS: GABAPENTIN 300 MG CAPSULE PO ×2 (07:45→20:39)
[2019-12-18] MEDS: DOCUSATE 100 MG CAPSULE PO ×2 (07:45→20:39)
[2019-12-18] MEDS: TAMSULOSIN 0.4 MG CAPSULE PO (07:45)
--- NOTE | 2019-12-18 10:36 | CM.DANOTE ---
DCP: Case received, EMR reviewed and met with patient. Introduced self and role. Was able to meet with patient to obtain baseline history and living situation. DCP assessment completed with information currently available. Patient is a 64 year old male who admitted yesterday morning to the care of the orthopedic team. PCP: Dr. Yaa Garcia. Payer: confirmed: Medicare/[employer]. Patient came to the hospital for a surgical procedure. He had L4-5 hemilaminectomy. Met with patient in his room. He is alert and oriented, pleasant. He has not yet been up with P.T. He lives on a boat with his spouse, has lived there for about 2 years. He is independent. He mentioned that he is already going to [facility] here in town. Nurse, Effie, stated that he is still having trouble voiding, and may need another in and out cath. P: DCP to continue to follow. He will be working with P.T. Plan is for home when stable and cleared by P.T. Raquel Freed RN/Insulation Sprayer
[2019-12-18] MEDS: INSULIN GLARGINE 100 UNIT/ML 3ML PEN 16 UNIT SUBCUT (10:45)
[2019-12-18] MEDS: glipiZIDE XL 5 MG TAB 10 MG PO (10:46)
--- NOTE | 2019-12-18 11:49 | PT.IIE ---
Current Diagnoses Other spondylosis with radiculopathy, lumbosacral region (12/17/19) Spinal stenosis, lumbar region without neurogenic claudication (12/17/19) Surgery Performed Operation Date: 12/17/19 07:45 Actual Procedures p L4-5 hemilaminectomy,L5-S1 TLIF with posterior instrumentation(Not Applicable) - Seema Arguello MD Surgical History (Last Updated 12/03/19 @ 12:28 by Barbara Tineo, RN) S/P CABG x 5 (Acute ~2002) Stented coronary artery (Acute ~1996) Medical History (Last Updated 12/03/19 @ 12:26 by Barbara Tineo RN) Coronary artery disease (Acute) Current every day smoker (Acute) Diabetes (Acute) DKA (diabetic ketoacidosis) (Acute 11/2018) Esophageal polyp (Acute ~10/2018) Herniated disc (Acute) High cholesterol (Acute) HLD (hyperlipidemia) (Acute) HTN (hypertension) (Acute) Hypothyroid (Acute) Iron deficiency anemia (Acute) Lumbar spine pain (Acute) Peripheral polyneuropathy (Acute) Severe protein-calorie malnutrition (Acute) Physical Therapy Inpatient Evaluation/Re-Eval M1 PT/OT-IP Prior Functional Status Start: 12/18/19 08:41 Freq: NEEDED Status: Active Protocol: Document 12/18/19 11:18 AW (Rec: 12/18/19 11:49 AW [email or web address]) Medical Review Prior Functional Status Medical History Reviewed Yes Communication WNL Mobility and Gait Pt was independent with all mobility, including embarking and disembarking the boat where he lives, without assistive device. He states he used a SPC <5% of the time secondary to increased pain. His ambulation was limited to ~100 yards due to pain. Activities of Daily Living and IADL's Pt states he was independent but slow with ADL's and admits to poor endurance with overhead activity such as washing his hair. Social History Household Members spouse Living Arrangements RV Number of Floors (Floors) Two Floors Number of Stairs To Enter/Railing? Pt lives on a boat. 12 step down and 12 step up to boat deck. 6 circular steps down to state room/living quarters with handholds nearby at all points. Home Environment Standard Height Toilet,Walk in Shower Home Equipment Four Wheel Walker,Straight Cane,Raised Toilet Seat Without Armrests,Hand Held Shower,Grab Bars In Shower Employment Status Retired Additional Social History Comment Pt lives on a boat with his , Effie. Both are retired. They have lived on their boat for over 2 years. Pt describes Effie as healthy and able to assist as needed. M2 PT-IP Current Condition Start: 12/18/19 08:41 Freq: NEEDED Status: Active Protocol: Document 12/18/19 11:18 AW (Rec: 12/18/19 11:49 AW [email or web address]) Physical Therapy Current Condition Current Condition Evaluation Date 12/18/19 Treatment Diagnosis s/p L4-5 brittany-lami, L5-S1 TLIF , impaired mobility Onset Date 12/17/19 Precautions Lumbar Precautions Log Roll,No Twisting,Limit Bending,Lifting Restriction of 10 lbs,Gait Belt above Incisional Area Weight Bearing Status Weight Bearing Status Full Weight Bearing M3 PT-IP Subjective Start: 12/18/19 08:41 Freq: NEEDED Status: Active Protocol: Document 12/18/19 11:18 AW (Rec: 12/18/19 11:49 AW [email or web address]) Subjective Physical Therapy Visit Type Type Initial Evaluation Visit Start Time 09:43 Visit Stop Time 10:06 Total Visit Minutes 23 Physical Therapy Visit Comments Patient Comments Pt has had a hard time resting but is willing to mobilize with PT Patient Goals Pt plans to discharge back to his boat with his providing assist. Therapy Pain Assessment Pain When Pain Assessed During Mobility Location Lower Back Intensity 7 Scale Used 3/10 at rest; 7/10 with mobility Pain Management Techniques Timing of Activity with Medications M4 PT-IP Mobility and Gait Start: 12/18/19 08:41 Freq: NEEDED Status: Active Protocol: Document 12/18/19 11:18 AW (Rec: 12/18/19 11:49 AW [email or web address]) PT-Bed Mobility Assessment Rolling Type of Rolling Log Rolling Level of Assist Contact Guard Assistance Supine to Sit Supine to Sit Contact Guard Assistance, Minimal Assistance,1 Person Assistance Sit to Supine Sit to Supine Minimal Assistance,1 Person Assistance Scooting Scooting to Edge of Bed Standby Assistance PT-Transfer Assessment Sit to and From Stand Sit to and from Stand Minimal Assistance,1 Person Assistance,Use of Upper Extremities Equipment Orthotic/Prosthetic Devices or Brace: No Transfers Transfer Destination Bed Transfer Technique pt ambulated with FWW Transfer Ability Level of Assist Contact Guard Assistance Comments Mobility Comments Pt log rolled to exit bed to his left side, requiring CGA for effective roll and cues for sequencing. Supine to sit required up to min A x 1 to support the pt's legs and to right his trunk. He was able to sit EOB with UE support and completed sit to stand using FWW and min A x 1. Pt then ambulated out to the juarez and back using FWW SBA and returned to bed with min A x 1 for log roll technique. Pt refused transfer to chair, stating he was too fearful of increased pain. He was repositioned in the bed with call light and all needs within reach. Gait Assessment Gait Gait Assistance Required: Contact Guard Assist Distance (Feet) 50 Assistive Devices Assistive Device Gait Belt,Front Wheeled Walker Orthotic/Prosthetic Devices or Brace: No Gait Deviations General Gait Pattern Antalgic,Decreased Stride Length,Decreased Feet Clearance,Flexed Trunk Factors Limiting Gait Function Factors Limiting Gait Function Decreased Activity Tolerance, Decreased Sensation,Decreased Strength,Pain,Poor Balance Comments Gait Comments Pt ambulated in the juarez using FWW CGA. Pt has excessive thoracic kyphosis and required cues to keep the walker closer to his trunk for safety . Stair Climbing Assessment Comments Stair Climbing Comments Not assessed. PT-Balance Assessment Sitting Balance and Reactions Static Sitting Balance Ability Good Dynamic Sitting Balance Ability Good Standing Balance and Reactions Static Standing Balance Ability Fair Dynamic Standing Balance Ability Fair Device Used FWW M5 PT-IP Objective Assessments Start: 12/18/19 08:41 Freq: NEEDED Status: Active Protocol: Document 12/18/19 11:18 AW (Rec: 12/18/19 11:49 AW [email or web address]) Orientation Orientation/Cognition Level of Alertness Alert Orientation Name,Day of Week,Place, Situation Language Function Ability No Deficits Noted Safety Awareness Understands Safety Issues Memory Description No Deficits Noted Gross Range of Motion Upper Extremity ROM Assessment Bilaterally Impaired Impairments Active GH flexion limited to ~ 135 degrees Lower Extremity ROM Assessment Bilaterally Impaired Strength Upper Extremity Strength Assessment Bilaterally Impaired Lower Extremity Strength Assessment Bilaterally Impaired Comments Strength Comments B shoulders 3+/5 R hip 3/5; L hip 4-/5 B knee 4-/5 B ankle 4-/5 MMT limited due to reported pain in lumbar spine Coordination Assessment Gross Coordination Gross Coordination WNL Sensation Assessment Sensation Gross Sensation Right LE Impaired,Left LE Impaired Light Touch Impaired Comments Sensation Comments Impaired light touch to bilateral feet secondary to neuropathy Muscle Tone Muscle Tone WNL Yes M6 PT-IP Treatment Start: 12/18/19 08:41 Freq: NEEDED Status: Active Protocol: Document 12/18/19 11:18 AW (Rec: 12/18/19 11:49 AW [email or web address]) Physical Therapy Treatment Education Education Provided Precautions,Weight Bearing Status,Post-Op Packet,Safety Other Treatments Other Treatment Performed Provided education on role of PT, plan of care, precautions, weightbearing status, and safe use of FWW. M7 PT-IP Assessment and Plan Start: 12/18/19 08:41 Freq: NEEDED Status: Active Protocol: Document 12/18/19 11:18 AW (Rec: 12/18/19 11:49 AW [email or web address]) PT Summary Assessment and Plan Potential Rehabilitation Potential Good Summary Impairments Pain,ROM,Strength,Balance, Sensation,Bed Mobility, Transfers,Gait,Activity Tolerance Assessment Summary Telly is a 64 yo man seen for PT evaluation on POD1 following lumbar spine surgery . He was independent in all regards but did use a SPC <5% of the time. On evaluation, he was limited due to apprehension, pain, and decreased strength. He required CGA to min assist for all mobilities. Pt lives on a boat with his and has to manage stairs prior to discharge. Caregiver training would also be beneficial to ensure pt's spouse is able to provide quality, safe assist at home. Anticipating pt's achievement of the goals in this plan of care, PT recommends discharge back to pt's boat/home with spouse assist and continued outpatient PT. Will continue to assess. Goals Bed Mobility Goal Standby Assistance Transfer Goal Standby Assistance Gait Goal Standby Assistance,Four Wheel Walker Gait Distance 300 Other Goals - up/down 12 step x 2 CGA/[employer]URAL [employer]ANT SUPERVISOR - up/down 6 steps with unilateral rail SBA Days to Meet Goals 5 Frequency of Treatment Frequency Of Treatment Twice a Day Treatment Plan Physical Therapy Treatment Plan Bed Mobility Training,Transfer Training,Gait Training, Therapeutic Exercise,Balance Retraining,Post Op Education, Discharge Planning,Hot or Cold Pack,Neuromuscular Re-ed, Coordination Retraining,Manual Therapy Other Recommendations and Next Treatment bed mobility, transfer to Focus chair, progress gait distance, assess safety on stairs if able Recommendations To Nursing Amount of Assist Needed 1 Person Assist Discharge Recommendations PT Discharge Recommendations Home with Assistance, Outpatient PT
[2019-12-18] MEDS: ACETAMINOPHEN 325 MG TABLET 650 MG PO ×2 (13:16→23:41)
[2019-12-18] MEDS: INSULIN ASPART 100 UNIT/ML INSULN PEN SUBCUT (13:16)
[2019-12-18] MEDS: HYDROMORPHONE 0.5 MG INJ IV ×3 (13:16→19:18)
[2019-12-18] MEDS: hydrOXYzine pamoate 25 MG CAPSULE PO ×2 (13:16→23:41)
--- NOTE | 2019-12-18 14:07 | PT-IP ANOTE ---
Contacted pt at 1300 and 1400 for afternoon therapy session. Pt reported markedly increased pain and declined treatment at this time. His , Effie, was present and noted she would like to be present during treatment tomorrow. She understood therapy may arrive as early as 0830. If she is not present at morning session, she would like to be called at [phone] to coordinate for afternoon.
--- NOTE | 2019-12-18 15:31 | CM.MNRNOTE ---
Ortho: Ortho naomi has been doing well, got up with PT and walked in the hallways. Hx of periph neuropathy but feels this doesn't cause any new problems for him as far as his amb. PPP, feet =/warm, brisk cap refill. Biggest issue has been urinary retention. Unable to void over night, got order for flomax, saline locked IV fluid, instructed to slow fluid intake to his normal level. I/O cath at 1030 for 1000mls. No urge to void this shift, pt reports he doesn't have sensation to feel anything yet. Bladder scanned for 419mls. Pt is currently up to void. Pain: had good control w/pain meds until this afternoon. SWhen the medicine in my back work off it was gone in like 10 mins. Got a dose of IV dilaudid, tylenol, vistaril. Reports pain is now at a 4/10 and he says he is comfortable. Cont w/poc.
--- NOTE | 2019-12-18 15:45 | OT.IPNOTE ---
Attempted to see pt for OT eval, however pt stating too tired, hurting too much and preferring to be seen tomorrow for OT eval. Able to initiate education for back precautions for ADL needs, pt's present in the room. No charge.
--- NOTE | 2019-12-18 16:36 | P.PN_ITS ---
Subjective Subjective Date Patient Seen: 12/18/19 Time Patient Seen: 07:45 Interval history: Post op day 1 s/p L4-5 left hemilaminectomy and L5-S1 TLIF with Dr. Arguello. Patient is having difficulty urinating. Denies hx of BPH. Straight cath 2x since surgery. Overnight bladder scan showed 774 mL, patient urinated 100 mL and refused another strait cath. Pain is well managed with oxycodone, gabapentin, vistaril and tylenol. Pain is located at incision site. Has not mob ilized with PT. Patient denies fever, chills, chest pain, shortness of breath, numbness, tingling, saddle anesthesia, bowel incontinence. Exam Vital Signs (past 8 hours): - 12/18/19 12:00 12/18/19 15:48 Temperature 98.4 F 98.1 F Pulse Rate 81 77 Respiratory Rate 16 18 Blood Pressure 119/71 107/57 L Pulse Oximetry 97 100 Oxygen Delivery Method Room Air Oxygen Flow Rate 0 Narrative Exam Narrative: 64 year old cachectic male is lying comfortably in bed, in no apparent distress. A&Ox3. Dressing is CDI, SCDs in place. Sensory function grossly intact to light touch in LE bl. Dorsalis pedis 2+ bl. Calves warm, soft, compressible, nttp. Able to actively dorsiflex/plantar flex bl. Assessment & Plan Post-op Postoperative Procedures: Procedures Operation Date: 12/17/19 07:45 Actual Procedures Side Surgeon p L4-5 hemilaminectomy,L5-S1 TLIF with posterior instrumentation Not Applicable Seema Arguello MD Postoperative status: doing well and urinary retention Postoperative plan: routine post-op care Postoperative plan narrative: Urinary retention - ordered flomax ; if urinary retention continues, will place johnson catheter this afternoon Continue current pain management Continue SCDs Mobilize with PT Discharge likely in next 24-48 hours pending resolution of urinary retention and PT clearance Time Spent With Patient Time with patient: less than 15 minutes
[2019-12-18] MEDS: METFORMIN HCL 500 MG TABLET PO (17:26)
[2019-12-18] MEDS: SENNOSIDES 8.6 MG TABLET 17.2 MG PO (20:40)
[2019-12-18] MEDS: ATORVASTATIN 20 MG TABLET 10 MG PO (20:40)
[2019-12-18] MEDS: SODIUM CHLORIDE 0.9% FLUSH 10 ML IV ×2 (20:40→23:42)
[2019-12-19] VITALS (7 sets, daily range): BP systolic 114–149; BP diastolic 68–79; PULSE 86–103; RESP 16–20; TEMP 36.7–37.7; O2SAT 95–98; BMI 16.3
[2019-12-19] MEDS: HYDROMORPHONE 0.5 MG INJ IV ×3 (00:47→06:48)
--- NOTE | 2019-12-19 01:05 | PC.NURSE ---
Addendum entered by Mirian Thacker R.N. 12/19/19 04:04: Pt reports pain much better satisfied with PRN pain regimen. No oversedation and effective pain control was met. Will con't with current PRN pain plan. Addendum entered by Mirian Thacker R.N. 12/19/19 01:43: Pain at low mid back reassessed. Pt reports pain has decreased from 7 to now at 5. Reports pain is tolerable, but the spasms kick in every once and a while and that's when it really hurts. Discussed plan to con't with current PRN pain med regimen using IV dilaudid for breakthru and vistaril for spasms. Pt declined offer of ice pack. Reassured pt that if pain plan not effective I will notify the provider. Pt drinking chamomile tea with honey and found this to be nice and helpful. Denies nausea. Original Note: POD 1. At beginning of shift pt rates pain 6/10 at low mid back. Describes as achy, alot. Grimace noted, conservative movements in bed. Pt admin 10mg oxy, 650mg tylenol, 25mg PO vistaril. Pt on scheduled gabapentin. On reassessment pt pain rate increased by 1 point to 7/10. Pt admin 0.5mg IV dilaudid for breakthru pain. Discussed with pt plan to reassess pain in 30mins and if pain not decreased and tolerable will call provider per protocol. Plan to maintain PRN pain med schedule overnight as pt tolerates. Pt CMS intact. Denies numbness tingling in all extremities. A&O x4, no oversedation. Resp rate regular, lung sounds clear, denies SOB at rest in bed. Heart rate regular, denies palpitations, no lower extremity edema. Bravo patent, draining clear yellow UOP. Plan to reassess pain, monitor for effective/tolerable pain, notify provided if no relief.
[2019-12-19] MEDS: OXYCODONE IR 5 MG TABLET 10 MG PO ×2 (02:28→05:30)
[2019-12-19] MEDS: hydrOXYzine pamoate 25 MG CAPSULE PO (03:28)
[2019-12-19] MEDS: ACETAMINOPHEN 325 MG TABLET 650 MG PO ×2 (05:30→20:49)
[2019-12-19] MEDS: LEVOTHYROXINE 50 MCG TABLET PO (05:31)
[2019-12-19] MEDS: SODIUM CHLORIDE 0.9% FLUSH 10 ML IV ×3 (06:49→20:50)
--- NOTE | 2019-12-19 07:48 | PM.PN.1 ---
Subjective Subjective Date Patient Seen: 12/19/19 Time Patient Seen: 07:48 Interval history: Patient is POD#2 s/p L4-5 hemilaminectomy, L5-S1 TLIF with Dr. Arguello. Some issues with pain control yesterday, required IV Dilaudid multiple times. Was able to mobilized with PT despite this. Johnson catheter in place. Flomax started yesterday. Exam Vital Signs (past 8 hours): - 12/19/19 05:00 Temperature 99.6 F Pulse Rate 92 H Respiratory Rate 16 Blood Pressure 149/79 H Pulse Oximetry 95 Oxygen Delivery Method Room Air Oxygen Flow Rate 0 Narrative Exam Narrative: 64 year old male resting in bed. Dressing CDI. 5/5 BLE. Calve soft, compressible. Assessment & Plan Assessment & Plan narrative: Pain control: Dilaudid 2mg moderate 4mg severe pain Q3 hrs added. Vistaril 50mg added for spasm. Urinary retention: Continue Flomax. Plan to D/c johnson tomorrow AM. Order placed for same. Continue to mobilize with PT. Likely discharge to home tomorrow.
[2019-12-19] MEDS: DOCUSATE 100 MG CAPSULE PO ×2 (08:01→20:48)
[2019-12-19] MEDS: hydrOXYzine pamoate 25 MG CAPSULE 50 MG PO (08:01)
[2019-12-19] MEDS: TAMSULOSIN 0.4 MG CAPSULE PO (08:02)
[2019-12-19] MEDS: GABAPENTIN 300 MG CAPSULE PO ×2 (08:02→20:48)
[2019-12-19] MEDS: HYDROMORPHONE 4 MG TABLET PO ×2 (08:02→11:26)
[2019-12-19] MEDS: glipiZIDE XL 5 MG TAB 10 MG PO (08:03)
[2019-12-19] MEDS: METFORMIN HCL 500 MG TABLET PO ×2 (08:04→17:07)
[2019-12-19] MEDS: INSULIN ASPART 100 UNIT/ML INSULN PEN SUBCUT ×2 (08:06→12:22)
[2019-12-19] MEDS: INSULIN GLARGINE 100 UNIT/ML 3ML PEN 16 UNIT SUBCUT (08:06)
--- NOTE | 2019-12-19 08:36 | OT.IP.EVAL ---
Current Diagnoses Other spondylosis with radiculopathy, lumbosacral region (12/17/19) Spinal stenosis, lumbar region without neurogenic claudication (12/17/19) Surgery Performed Operation Date: 12/17/19 07:45 Actual Procedures p L4-5 hemilaminectomy,L5-S1 TLIF with posterior instrumentation(Not Applicable) - Seema Arguello MD Past Medical History (Last Updated 12/03/19 @ 12:26 by Barbara Tineo RN) Coronary artery disease (Acute) Current every day smoker (Acute) Diabetes (Acute) DKA (diabetic ketoacidosis) (Acute 11/2018) Esophageal polyp (Acute ~10/2018) Herniated disc (Acute) High cholesterol (Acute) HLD (hyperlipidemia) (Acute) HTN (hypertension) (Acute) Hypothyroid (Acute) Iron deficiency anemia (Acute) Lumbar spine pain (Acute) Peripheral polyneuropathy (Acute) Severe protein-calorie malnutrition (Acute) Surgical History (Last Updated 12/03/19 @ 12:28 by Barbara Tineo RN) S/P CABG x 5 (Acute ~2002) Stented coronary artery (Acute ~1996) Occupational Therapy Inpatient Evaluation/Re-Eval M1 PT/OT-IP Prior Functional Status Start: 12/18/19 08:41 Freq: NEEDED Status: Active Protocol: Document 12/19/19 10:23 CGR (Rec: 12/19/19 10:40 CGR [email or web address]) Medical Review Prior Functional Status Medical History Reviewed Yes Communication WNL Mobility and Gait Pt was independent with all mobility, including embarking and disembarking the boat where he lives, without assistive device. He states he used a SPC <5% of the time secondary to increased pain. His ambulation was limited to ~100 yards due to pain. Activities of Daily Living and IADL's Pt states he was independent but slow with ADL's and admits to poor endurance with overhead activity such as washing his hair. Social History Household Members spouse Number of Floors (Floors) Two Floors Number of Stairs To Enter/Railing? Pt lives on a boat. 12 step down and 12 step up to boat deck. 6 circular steps down to state room/living quarters with handholds nearby at all points. Home Environment Standard Height Toilet,Walk in Shower Home Equipment Four Wheel Walker,Straight Cane,Raised Toilet Seat Without Armrests,Hand Held Shower Employment Status Retired Additional Social History Comment Pt lives on a boat with his , Effie. Both are retired. They have lived on their boat for over 2 years. Pt describes Effie as healthy and able to assist as needed. M2 OT-IP Current Condition Start: 12/19/19 10:23 Freq: Status: Active Protocol: Document 12/19/19 10:23 CGR (Rec: 12/19/19 10:40 CGR [email or web address]) Occupational Therapy Current Condition Current Condition Evaluation Date 12/19/19 Treatment Diagnosis L4-5 hemilami and L5-S1 TLIF Diagnosis Onset Date 12/18/19 Post Operative Precautions Lumbar Precautions Log Roll,No Twisting,Limit Bending,Lifting Restriction of 10 lbs,Gait Belt above Incisional Area M3 OT- IP Subjective and Pain Start: 12/19/19 10:23 Freq: Status: Active Protocol: Document 12/19/19 10:23 CGR (Rec: 12/19/19 10:40 CGR [email or web address]) OT- Subjective Occupational Therapy Visit Type Type Initial Evaluation Visit Start Time 08:01 Visit Stop Time 08:36 Total Visit Minutes 35 Occupational Therapy Visit Comments Patient Comments I am not sure that I can get up to the chair. OT Pain Assessment Pain When Pain Assessed At Rest Pain Present Pain Present Pain Reported Location Lower Back Intensity 6 Scale Used Numeric (1 - 10) Description Aching Management Techniques Modification of Treatment,Re- positioning,Timing of Activity with Medications M4 OT- IP ADL's Start: 12/19/19 10:23 Freq: Status: Active Protocol: Document 12/19/19 10:23 CGR (Rec: 12/19/19 10:40 CGR [email or web address]) OT [id number] Comments OT Self-Feeding Comments Not meal time OT ADL-Grooming Comments OT Grooming Comments Pt declined to perform at this time OT ADL-Oral Care Comments Oral Care Comments Pt declined to perform at this time OT ADL-Dressing Comments OT Dressing Comments Not performed in todays session OT ADL-Toileting Comments OT Toileting Comments Pt with johnson OT ADL-Bathing Comments OT Bathing Comments Not performed in this session. M5 OT- IP IADL's Start: 12/19/19 10:23 Freq: Status: Active Protocol: Document 12/19/19 10:23 CGR (Rec: 12/19/19 10:40 CGR [email or web address]) OT-Instrumental Activities of Daily Living Deficits IADL Deficits Identified Deficits Home Safety Awareness Awareness of Need for Assistance at Home Decreased Awareness Ability to Problem Solve Emergency Able to Problem Solve Situations Medication Management Medication Management No Deficits Identified Money Management Money Management No Deficits Identified Meal Preparation Meal Preparation Caregiver Provides Assist Microwave Remote Sensing Scientist Microwave Remote Sensing Scientist Caregiver Provides Assist M6 OT- IP Functional Cognition Start: 12/19/19 10:23 Freq: Status: Active Protocol: Document 12/19/19 10:23 CGR (Rec: 12/19/19 10:40 CGR [email or web address]) Cognitive Factors Limiting Selfcare Function Cognitive Ability Level of Alertness Alert Patient Orientation Name,Age,Birthday,Month,Date, Year,Day of Week,Place, Situation Attention Span Ability Capable of Focused Attention, Capable of Sustained Attention Ability to Follow Commands Able to Follow One Step Commands with Increased Time, Able to Follow One Step Commands with Repetition Memory Description No Deficits Noted Safety Awareness Decreased Recall of Precautions,Underestimates Need for Assistance Problem Solving Ability Needs Assist to Identify Solutions OT- Vision and Hearing OT- Hearing Assessment OT- Hearing Assessment WFL OT- Vision Assessment Visual Acuity WFL,Glasses All The Time Visual Attentiveness WFL Occular Pursuits WFL Visual Convergence WFL Visual Lund WFL Vision Assessment Comments bifocals M7 OT- IP Mobility and Balance Start: 12/19/19 10:23 Freq: Status: Active Protocol: Document 12/19/19 10:23 CGR (Rec: 12/19/19 10:40 CGR [email or web address]) OT- Bed Mobility Assessment Rolling Type of Rolling Roll to Right Level of Assistance Minimal Assistance Supine to Sit Supine to Sit Assist Moderate Assistance Scooting Scooting to Edge of Bed Standby Assistance OT-Transfer Assessment Transfers Transfer Ability Contact Guard Assistance Technique Transfer Destination Bed,Chair Transfer Technique Stand Step Pivot Devices Transfer Assistive Devices Gait Belt,Front Wheeled Walker Comments Mobility Comments steps to chair only OT- Balance Assessment Sitting Balance and Reactions Static Sitting Balance Ability Fair Dynamic Sitting Balance Ability Fair M8 OT- IP Objective Assessments Start: 12/19/19 10:23 Freq: Status: Active Protocol: Document 12/19/19 10:23 CGR (Rec: 12/19/19 10:40 CGR [email or web address]) OT Gross Range of Motion Upper Extremity Range of Motion Assessment Within Functional Limits OT Strength Upper Extremity Strength Assessment Within Functional Limits OT- Coordination Assessment Upper Extremity Finger to Nose Test Within Functional Limits Finger Tapping Test Within Functional Limits OT-Muscle Tone Assessment Muscle Tone WNL Yes OT Sensation Assessment Edema Edema Absent M9 OT- IP Assessment and Plan Start: 12/19/19 10:23 Freq: Status: Active Protocol: Document 12/19/19 10:23 CGR (Rec: 12/19/19 10:40 CGR [email or web address]) OT Summary Assessment and Plan Potential Rehabilitation Potential Good Analytic Complexity at Evaluation Low Summary OT Impairments Pain,Balance,Functional Mobility,Grooming,Dressing, Toileting,Bathing,Toilet Transfers,Shower Transfers, Activity Tolerance Progress Towards Goals Slow Progress due to Pain Assessment Summary Pt presents as a low complexity evalution s/p lumbar sx. Pt reports 6/10 pain but was only able to transfer to chair. Pt states that pain takes a long time to settle down after movement. Pt may need SNF upon discharge if his mobility and ADLs aren't improved. Pt has a large step up and down to get into his boat and states that he can stay on that level if needed. Pt's present and states that she will be able to assist him as needed. Pt will need to demonstrate increased mobiltiy, ADLs and balance prior to a discharge home. Goals Grooming Goal Independent Dressing Goal Independent Toileting Goal Independent Bathing Goal Independent Toilet Transfer Goal Independent Shower Transfer Goal Independent Days to Meet Goals 10 Frequency of Treatment Frequency Of Treatment Once a Day Treatment Plan OT Treatment Plan ADL Training,Functional Mobility,Patient/Family Education,Discharge Planning Discharge Recommendations OT Discharge Recommendations Home with Assistance,SNF Rehab Other Discharge Recommendations Home with vs SNF depending on progress Home Equipment Needs shower chair Transportation Needs at Discharge Private Vehicle
--- NOTE | 2019-12-19 11:24 | PT.IPTN ---
Current Diagnoses Other spondylosis with radiculopathy, lumbosacral region (12/17/19) Spinal stenosis, lumbar region without neurogenic claudication (12/17/19) Surgery Performed Operation Date: 12/17/19 07:45 Actual Procedures p L4-5 hemilaminectomy,L5-S1 TLIF with posterior instrumentation(Not Applicable) - Seema Arguello MD Physical Therapy Treatment Note M2 PT-IP Current Condition Start: 12/18/19 08:41 Freq: NEEDED Status: Active Protocol: Document 12/18/19 11:18 AW (Rec: 12/18/19 11:49 AW [id number]) Physical Therapy Current Condition Current Condition Evaluation Date 12/18/19 Treatment Diagnosis s/p L4-5 brittany-lami, L5-S1 TLIF , impaired mobility Onset Date 12/17/19 Precautions Lumbar Precautions Log Roll,No Twisting,Limit Bending,Lifting Restriction of 10 lbs,Gait Belt above Incisional Area Weight Bearing Status Weight Bearing Status Full Weight Bearing M3 PT-IP Subjective Start: 12/18/19 08:41 Freq: NEEDED Status: Active Protocol: Document 12/19/19 10:45 KS (Rec: 12/19/19 12:43 KS [id number]) Subjective Physical Therapy Visit Type Type Treatment Note Visit Start Time 10:45 Visit Stop Time 11:24 Total Visit Minutes 39 Notes Pts present during treatment. Physical Therapy Visit Comments Patient Comments Pt agreeable to work with therapy. Patient Goals Pt plans to discharge back to his boat with his providing assist. Therapy Pain Assessment Pain When Pain Assessed During Mobility Location Lower Back Intensity 7 Scale Used 4/10 at rest; 7/10 with mobility Pain Management Techniques Re-positioning M4 PT-IP Mobility and Gait Start: 12/18/19 08:41 Freq: NEEDED Status: Active Protocol: Document 12/19/19 10:45 KS (Rec: 12/19/19 12:43 KS [id number]) PT-Bed Mobility Assessment Rolling Type of Rolling Log Rolling Level of Assist Contact Guard Assistance Sit to Supine Sit to Supine Contact Guard Assistance,1 Person Assistance Scooting Scooting to Edge of Bed Standby Assistance PT-Transfer Assessment Sit to and From Stand Sit to and from Stand Contact Guard Assistance,1 Person Assistance,Use of Upper Extremities Equipment Orthotic/Prosthetic Devices or Brace: No Transfers Transfer Destination Bed Transfer Technique pt ambulated with FWW Transfer Ability Level of Assist Contact Guard Assistance Comments Mobility Comments Pt was in chair upon arrival from therapy and was present in room. Pt was SBA for scooting to edge of chair and required no verbal cues. CGA for sit<>stand w/ FWW and cues to push up from chair. Pt ambulated to w/c and required CGA and min cues to lower slowly into chair. Following ambulation and stair training, pt was brought back to room and performed sit<>stand from w/c w/ CGA and FWW. Pt then ambulated w/ FWW to bed and performed stand<>sitting EOB CGA, sit<>sidelying CGA, and sidelying<>sup CGA w/ cues to roll legs at same time. Pt left in bed w/ nursing staff and present in room. Gait Assessment Gait Gait Assistance Required: Contact Guard Assist Distance (Feet) 60 Assistive Devices Assistive Device Gait Belt,Front Wheeled Walker Gait Deviations General Gait Pattern Antalgic,Decreased Stride Length,Decreased Feet Clearance,Flexed Trunk Factors Limiting Gait Function Factors Limiting Gait Function Decreased Activity Tolerance, Decreased Sensation,Decreased Strength,Pain,Poor Balance Comments Gait Comments Pt ambulated ~60 ft. from chair into hallway, and then from w/c to stairs, then w/c back to bed. Pt reported increased pain to 7/10 during standing and ambulation. Pt was brought down to stairs in w/c to conserve energy for stair training, and brought back to room in w/c due to increased pain. Min cues for keeping inside FWW/ proper FWW management. Stair Climbing Assessment Evaluation Level of Assist On Stairs Contact Guard Assistance,1 Person Assistance Devices Stair Climbing Assistive Devices Right Railing Technique/Endurance Stair Climbing Direction Ascend and Descend Stair Climbing Technique Step to Step Number of Steps Climbed 3 Stair Climbing Set # Repetitions (reps) 1 Comments Stair Climbing Comments Pt was able to ascend/descend 3 steps w/ both arms holding onto R rail ascending and L UE using L rail descending w/ HH assist for R UE and CGA all with step to step gait pattern . Pt was able to ascend w/ min cues, was slower on descent due to increased pain. Pt was hesitant to put weight through handheld assist while descending and reported that he feels like he could do it with just holding L hand rail. Pt and note that stair case will be similar to the set of stairs the pt can use when getting onto his boat upon d/c. PT-Balance Assessment Sitting Balance and Reactions Static Sitting Balance Ability Good Dynamic Sitting Balance Ability Good Standing Balance and Reactions Static Standing Balance Ability Good Dynamic Standing Balance Ability Fair Device Used FWW M5 PT-IP Objective Assessments Start: 12/18/19 08:41 Freq: NEEDED Status: Active Protocol: Document 12/18/19 11:18 AW (Rec: 12/18/19 11:49 AW [email or web address]) Orientation Orientation/Cognition Level of Alertness Alert Orientation Name,Day of Week,Place, Situation Language Function Ability No Deficits Noted Safety Awareness Understands Safety Issues Memory Description No Deficits Noted Gross Range of Motion Upper Extremity ROM Assessment Bilaterally Impaired Impairments Active GH flexion limited to ~ 135 degrees Lower Extremity ROM Assessment Bilaterally Impaired Strength Upper Extremity Strength Assessment Bilaterally Impaired Lower Extremity Strength Assessment Bilaterally Impaired Comments Strength Comments B shoulders 3+/5 R hip 3/5; L hip 4-/5 B knee 4-/5 B ankle 4-/5 MMT limited due to reported pain in lumbar spine Coordination Assessment Gross Coordination Gross Coordination WNL Sensation Assessment Sensation Gross Sensation Right LE Impaired,Left LE Impaired Light Touch Impaired Comments Sensation Comments Impaired light touch to bilateral feet secondary to neuropathy Muscle Tone Muscle Tone WNL Yes M6 PT-IP Treatment Start: 12/18/19 08:41 Freq: NEEDED Status: Active Protocol: Document 12/19/19 10:45 KS (Rec: 12/19/19 12:43 KS [id number]) Physical Therapy Treatment Education Education Provided Safety Other Treatments Other Treatment Performed Provided introduction to caregiver training for pts . M7 PT-IP Assessment and Plan Start: 12/18/19 08:41 Freq: NEEDED Status: Active Protocol: Document 12/19/19 10:45 KS (Rec: 12/19/19 12:43 KS [id number]) PT Summary Assessment and Plan Potential Rehabilitation Potential Good Summary Impairments Pain,ROM,Strength,Balance, Sensation,Bed Mobility, Transfers,Gait,Activity Tolerance Assessment Summary Telly is showing improvements but continues to have high levels of pain. Pt was CGA for sit<>stand and stand<>sit, ambulation, and stair training, CGA for log roll and SBA scooting EOB. Pt was able to ambulate ~60ft w/ FWW and CGA, and complete 3 steps w/ CGA and both arms on R hand rail ascending, L UE on L handrail descending and R HH assist. Pt reported increased pain secondary to ambulation and stair training. Will assess stairs and complete caregiver training w/ pts this afternoon. Goals Bed Mobility Goal Standby Assistance Transfer Goal Standby Assistance Gait Goal Standby Assistance,Four Wheel Walker Gait Distance 300 Other Goals - up/down 12 step x 2 CGA/JEWEL BEARING POLISHER - up/down 6 steps with unilateral rail SBA Days to Meet Goals 5 Frequency of Treatment Frequency Of Treatment Twice a Day Treatment Plan Physical Therapy Treatment Plan Bed Mobility Training,Transfer Training,Gait Training, Therapeutic Exercise,Balance Retraining,Post Op Education, Discharge Planning,Hot or Cold Pack,Neuromuscular Re-ed, Coordination Retraining,Manual Therapy Other Recommendations and Next Treatment caregiver training, stair Focus training Recommendations To Nursing Amount of Assist Needed 1 Person Assist Discharge Recommendations PT Discharge Recommendations Home with Assistance, Outpatient PT
[2019-12-19] MEDS: MAGNESIUM HYDROXIDE 30 ML UDC PO (11:26)
--- NOTE | 2019-12-19 11:55 | DIET.PN ---
Dietary Progress Note Assessment: 64y M s/p L4-5 laminectomy referred to nutrition for low BMI and 40# wt loss in 3y. Pt interested in ways to increase pt's body weight and muscle strength being mindful of his DM2. Pt and live in 2 level motor boat at [facility]. Pt has been wt stable at 16.4 BMI for past year, and can't seem to put on weight. On a good day pt eats toast c PB and 2% milk, on a bad day, no food or one bite of scrambled eggs. Pt started tx for hypothyroid 1mo ago and appetite has increased recently. DM2 is well controlled att. HT: 175.2cm WT: 50.2kg UBW: 68kg (-26% in 3y) BMI: 16.4 (severe for age) Labs: A1c 7 MNA: 8 Medhat: 19 Nutrition Diagnosis: Chronic Severe PCM r/t untreated hypothyroid, px c px med use aeb 26% unintentional wt loss in 3y, BMI 16.4 (severe for age), system wide severe muscle and subcutaneous fat loss. Interventions: 1. Problem solved meal planning c Pt and based on pt preferences and using boat kitchen prioritizing lean proteins and healthy fats. 2. Recc ONS blueberry protein smoothie c lunch to be consumed as afternoon snack. Diet Order: CCD EER: 2,000kcal (+200 for wt gain), 65g PRO (1.3g/kg per malnutrition), 1.8L fluids Monitoring/Evaluations: ONS tolerance, further education as desired
--- NOTE | 2019-12-19 12:30 | PC.NURSE ---
Pain/Ortho: SThe dilaudid works much better for pain. Pt switched to dilaudid oral this am, has received 2 doses and reports each has been effective for pain. No bm yet so got a dose of mom, still no results yet. Has been able to work with PT and sat in the chair for more than an hour. Today has been the most he has been able to do. Johnson to be left in another day per PA-C, allow the bladder to further rest and they will re eval tomorrow. Pt prefers not to go home with johnson if at all possible. [place] on a boat. Spouse is here and helpful in what ever needs to be done. Hopefully wont need to go home with johnson. Ortho- has been doing well, does have a base line peripheral neuropathy which is unchanged. Has been able to amb a short distance, is following his lami precautions, needs reminders when log rolling, needs help getting oob but then sba when going to the bathroom. As mentioned did sit in chair today. Pt feels he is making forward progress now and pleased he is having better pain control. Cont w/poc.
--- NOTE | 2019-12-19 15:16 | PT.IPTN ---
Current Diagnoses Other spondylosis with radiculopathy, lumbosacral region (12/17/19) Spinal stenosis, lumbar region without neurogenic claudication (12/17/19) Surgery Performed Operation Date: 12/17/19 07:45 Actual Procedures p L4-5 hemilaminectomy,L5-S1 TLIF with posterior instrumentation(Not Applicable) - Seema Arguello MD Physical Therapy Treatment Note M2 PT-IP Current Condition Start: 12/18/19 08:41 Freq: NEEDED Status: Active Protocol: Document 12/18/19 11:18 AW (Rec: 12/18/19 11:49 AW [id number]) Physical Therapy Current Condition Current Condition Evaluation Date 12/18/19 Treatment Diagnosis s/p L4-5 brittany-lami, L5-S1 TLIF , impaired mobility Onset Date 12/17/19 Precautions Lumbar Precautions Log Roll,No Twisting,Limit Bending,Lifting Restriction of 10 lbs,Gait Belt above Incisional Area Weight Bearing Status Weight Bearing Status Full Weight Bearing M3 PT-IP Subjective Start: 12/18/19 08:41 Freq: NEEDED Status: Active Protocol: Document 12/19/19 14:44 KS (Rec: 12/19/19 16:06 KS [id number]) Subjective Physical Therapy Visit Type Type Treatment Note Visit Start Time 14:44 Visit Stop Time 15:16 Total Visit Minutes 32 Notes Pts present for caregiver training. Physical Therapy Visit Comments Patient Comments Pt agreeable to work with therapy. Patient Goals Pt plans to discharge back to his boat with his providing assist. Therapy Pain Assessment Pain When Pain Assessed At Rest Pain Present Pain Present Pain Reported Location Lower Back Intensity 3 Pain Behaviors Wincing Pain Management Techniques Re-positioning M4 PT-IP Mobility and Gait Start: 12/18/19 08:41 Freq: NEEDED Status: Active Protocol: Document 12/19/19 14:44 KS (Rec: 12/19/19 16:06 KS [id number]) PT-Bed Mobility Assessment Rolling Type of Rolling Log Rolling Level of Assist Contact Guard Assistance, Minimal Assistance,1 Person Assistance Supine to Sit Supine to Sit Contact Guard Assistance, Minimal Assistance,1 Person Assistance Sit to Supine Sit to Supine Contact Guard Assistance, Minimal Assistance,1 Person Assistance Scooting Scooting to Edge of Bed Standby Assistance PT-Transfer Assessment Sit to and From Stand Sit to and from Stand Contact Guard Assistance,1 Person Assistance,Use of Upper Extremities Equipment Orthotic/Prosthetic Devices or Brace: No Transfers Transfer Destination Bed Transfer Technique pt ambulated with FWW Transfer Ability Level of Assist Contact Guard Assistance Comments Mobility Comments Pt was asleep in bed upon arrival from therapy. CGA to Min A for logroll to L side and for sidelying to sitting. SBA for scooting EOB. CGA and use of UE from sit<>stand w/ FWW as well as stand<>sit. Instructed pts on how to assist sit<>stand transfer w/ correct guarding. Will assess carryover tomorrow. Pt c/o itching on back - nursing notified. Pt left in bed w/ all needs in reach. Gait Assessment Gait Gait Assistance Required: Contact Guard Assist Distance (Feet) 100 Able to Maintain Weight Bearing Status Yes During Gait Assistive Devices Assistive Device Gait Belt,Front Wheeled Walker Orthotic/Prosthetic Devices or Brace: No Gait Deviations General Gait Pattern Antalgic,Decreased Stride Length,Decreased Feet Clearance,Flexed Trunk Factors Limiting Gait Function Factors Limiting Gait Function Decreased Activity Tolerance, Decreased Sensation,Decreased Strength,Pain,Poor Balance Comments Gait Comments Pt ambulated ~ 100 feet this treatment from bed to w/c placed outside of room w/ CGA. Pt then taken down to stairs in w/c for energy conservation . After stair training, pt ambulated down hallway. Pt reported fatigue and was then taken back to room in w/c. Pts /caregiver/Effie gave pt proper CGA during ambulation. Min cues for upright posture and staying inside of FWW. Stair Climbing Assessment Evaluation Level of Assist On Stairs Contact Guard Assistance,1 Person Assistance Devices Stair Climbing Assistive Devices Left Railing,Right Railing Technique/Endurance Stair Climbing Direction Ascend and Descend Stair Climbing Technique Step Over Step,Step to Step Number of Steps Climbed 3 Stair Climbing Set # Repetitions (reps) 1 Comments Stair Climbing Comments Pt was able to ascend 3 steps w/ use of L hand rail w/ both arms on rail and step over step gait. Pt then descended steps w/ step to gait pattern and use of both handrails. Pts provided CGA and cues during stair training. Pt and pts note that pt can reach rails of boat and hand rail on stairs during ascent/ descent. PT-Balance Assessment Sitting Balance and Reactions Static Sitting Balance Ability Good Dynamic Sitting Balance Ability Good Standing Balance and Reactions Static Standing Balance Ability Good Dynamic Standing Balance Ability Fair Device Used FWW M5 PT-IP Objective Assessments Start: 12/18/19 08:41 Freq: NEEDED Status: Active Protocol: Document 12/18/19 11:18 AW (Rec: 12/18/19 11:49 AW [id number]) Orientation Orientation/Cognition Level of Alertness Alert Orientation Name,Day of Week,Place, Situation Language Function Ability No Deficits Noted Safety Awareness Understands Safety Issues Memory Description No Deficits Noted Gross Range of Motion Upper Extremity ROM Assessment Bilaterally Impaired Impairments Active GH flexion limited to ~ 135 degrees Lower Extremity ROM Assessment Bilaterally Impaired Strength Upper Extremity Strength Assessment Bilaterally Impaired Lower Extremity Strength Assessment Bilaterally Impaired Comments Strength Comments B shoulders 3+/5 R hip 3/5; L hip 4-/5 B knee 4-/5 B ankle 4-/5 MMT limited due to reported pain in lumbar spine Coordination Assessment Gross Coordination Gross Coordination WNL Sensation Assessment Sensation Gross Sensation Right LE Impaired,Left LE Impaired Light Touch Impaired Comments Sensation Comments Impaired light touch to bilateral feet secondary to neuropathy Muscle Tone Muscle Tone WNL Yes M6 PT-IP Treatment Start: 12/18/19 08:41 Freq: NEEDED Status: Active Protocol: Document 12/19/19 14:44 KS (Rec: 12/19/19 16:06 KS [id number]) Physical Therapy Treatment Education Education Provided Safety Other Treatments Other Treatment Performed Caregiver training for stairs, ambulation, and transfers. M7 PT-IP Assessment and Plan Start: 12/18/19 08:41 Freq: NEEDED Status: Active Protocol: Document 12/19/19 14:44 KS (Rec: 12/19/19 16:06 KS [id number]) PT Summary Assessment and Plan Potential Rehabilitation Potential Good Status of Condition at Evaluation Stable Summary Impairments Pain,ROM,Strength,Balance, Sensation,Bed Mobility, Transfers,Gait,Activity Tolerance Assessment Summary Telly had improved tolerance for activity this afternoon and ambulated ~100 feet. CGA to Min A for sup<>sit, SBA for scooting EOB, and CGA for sit< >stand. Completed gait, stair, and transfer caregiver training w/ pts . Pt reported pain and fatigue after walking. Will assess carryover tomorrow morning. Goals Bed Mobility Goal Standby Assistance Transfer Goal Standby Assistance Gait Goal Standby Assistance,Four Wheel Walker Gait Distance 300 Other Goals - up/down 12 step x 2 CGA/FREIGHT AGENT - up/down 6 steps with unilateral rail SBA Days to Meet Goals 5 Frequency of Treatment Frequency Of Treatment Twice a Day Treatment Plan Physical Therapy Treatment Plan Bed Mobility Training,Transfer Training,Gait Training, Therapeutic Exercise,Balance Retraining,Post Op Education, Discharge Planning,Hot or Cold Pack,Neuromuscular Re-ed, Coordination Retraining,Manual Therapy Other Recommendations and Next Treatment caregiver training, stair Focus training Recommendations To Nursing Amount of Assist Needed 1 Person Assist Discharge Recommendations PT Discharge Recommendations Home with Assistance, Outpatient PT
[2019-12-19] MEDS: ATORVASTATIN 20 MG TABLET 10 MG PO (20:48)
[2019-12-19] MEDS: SENNOSIDES 8.6 MG TABLET 17.2 MG PO (20:49)
[2019-12-20] MEDS: HYDROMORPHONE 4 MG TABLET PO ×6 (01:26→21:25)
[2019-12-20] MEDS: hydrOXYzine pamoate 25 MG CAPSULE 50 MG PO ×2 (02:21→10:34)
[2019-12-20] MEDS: HYDROMORPHONE 0.5 MG INJ IV (02:22)
[2019-12-20 05:10] VITALS: BP 127/68; PULSE 84; RESP 20; TEMP 37.1; O2SAT 94
[2019-12-20] MEDS: LEVOTHYROXINE 50 MCG TABLET PO (05:40)
[2019-12-20] MEDS: MAG HYDROX/ALUM/SIMETH 30 ML UDC PO ×3 (06:20→19:34)
--- NOTE | 2019-12-20 06:26 | PC.NURSE ---
Pt is AxOx3, vitals stable. Complaints of back pain; pt said the PO 4mg Dilaudid didn't help much so he was given 0.5mg IVP dilaudid. Spoke to pt abt needing to transition to just oral meds and he verbalized understanding. Lawrence removed at 0605 this morning as ordered.
[2019-12-20 07:35] VITALS: BP 151/72; PULSE 83; RESP 16; TEMP 36.7; O2SAT 94
[2019-12-20] MEDS: DOCUSATE 100 MG CAPSULE PO ×2 (09:12→21:27)
[2019-12-20] MEDS: TAMSULOSIN 0.4 MG CAPSULE PO (09:12)
[2019-12-20] MEDS: glipiZIDE XL 5 MG TAB 10 MG PO (09:12)
[2019-12-20] MEDS: GABAPENTIN 300 MG CAPSULE PO ×2 (09:12→21:27)
[2019-12-20] MEDS: INSULIN GLARGINE 100 UNIT/ML 3ML PEN 16 UNIT SUBCUT (09:13)
[2019-12-20] MEDS: INSULIN ASPART 100 UNIT/ML INSULN PEN SUBCUT ×4 (09:14→21:27)
[2019-12-20] MEDS: SODIUM CHLORIDE 0.9% FLUSH 10 ML IV ×2 (09:14→21:27)
[2019-12-20] MEDS: METFORMIN HCL 500 MG TABLET PO ×2 (09:23→17:47)
--- NOTE | 2019-12-20 09:24 | PM.PNPO.1 ---
Subjective Subjective Date Patient Seen: 12/20/19 Time Patient Seen: 09:24 Interval history: Postop day 3 status post L4-5 hemilaminectomy, L5-S1 TLIF with Dr. Arguello. Patient has had significant pain control issues. He is taking Dilaudid 4 mg, and Vistaril 50 mg every 3 hours. He states he is still at a 7 to 8/10, and this is worse with ambulating. He feels very weak when he mobilizes with therapy. He has had chronic severe protein calorie malnutrition and has worked with a entry level account manager in the hospital for proper nutrition intake. He has had significant urinary retention since surgery. Catheter was removed at 6:00 a.m. this morning. He was started on Flomax during his stay. He lives on a boat and there is significant concern for his safety if he were to go home, due to his level of weakness after surgery. Exam Vital Signs (past 8 hours): - 12/20/19 05:10 Temperature 98.8 F Pulse Rate 84 Respiratory Rate 20 Blood Pressure 127/68 Pulse Oximetry 94 Oxygen Delivery Method Room Air Oxygen Flow Rate 0 Narrative Exam Narrative: Patient lying in bed no acute distress. He is alert orient x3. Calves are soft, compressible, nontender bilaterally. Pulses are symmetrical. SCDs on and functioning. He is able to actively dorsiflex and plantar flex. Assessment & Plan Post-op Assessment and plan (1) S/P lumbar fusion: (2) Thyroid disease: Postoperative Procedures: Procedures Operation Date: 12/17/19 07:45 Actual Procedures Side Surgeon p L4-5 hemilaminectomy,L5-S1 TLIF with posterior instrumentation Not Applicable Seema Arguello MD Patient will continue to mobilize with physical therapy today. No excessive bending, lifting, or twisting. Continue to monitor urinary retention. If patient has another episode of retention recommending catheter remain in place until he can follow up with primary care/urology. Continue Flomax as well. Patient is diabetic and blood sugar was 256 today. We'll give 1 time dose of Decadron 4 mg. Monitor blood sugars closely today. Will continue current pain control in hopes that steroids will bring down pain. Continue nutrition recommendations from dietitian. At this time, due to patient's multiple comorbidities and weakness, urinary retention, and that he is slow to mobilize; recommending he go to a SNF for continued care after surgery. Recommending he be discharged tomorrow to allow for monitoring blood sugars today, and urinary voiding.
[2019-12-20] MEDS: DEXAMETHASONE 4 MG/ML VIAL IV (10:14)
--- NOTE | 2019-12-20 10:59 | OT.IPNOTE ---
Attempted to see pt for OT treatment and states in too much pain. Per , when pt in pain not able to eat and also having trouble urinating at this time. Pt and Pt's now agreeable to have skilled rehab as a back up plan, notified case management.
--- NOTE | 2019-12-20 11:34 | PT.IPTN ---
Current Diagnoses Disorder of thyroid, unspecified (12/17/19) Other spondylosis with radiculopathy, lumbosacral region (12/17/19) Spinal stenosis, lumbar region without neurogenic claudication (12/17/19) Arthrodesis status (12/17/19) Surgery Performed Operation Date: 12/17/19 07:45 Actual Procedures p L4-5 hemilaminectomy,L5-S1 TLIF with posterior instrumentation(Not Applicable) - Seema Arguello MD Physical Therapy Treatment Note M2 PT-IP Current Condition Start: 12/18/19 08:41 Freq: NEEDED Status: Active Protocol: Document 12/18/19 11:18 AW (Rec: 12/18/19 11:49 AW [email or web address]) Physical Therapy Current Condition Current Condition Evaluation Date 12/18/19 Treatment Diagnosis s/p L4-5 brittany-lami, L5-S1 TLIF , impaired mobility Onset Date 12/17/19 Precautions Lumbar Precautions Log Roll,No Twisting,Limit Bending,Lifting Restriction of 10 lbs,Gait Belt above Incisional Area Weight Bearing Status Weight Bearing Status Full Weight Bearing M3 PT-IP Subjective Start: 12/18/19 08:41 Freq: NEEDED Status: Active Protocol: Document 12/20/19 11:10 KS (Rec: 12/20/19 13:37 KS [id number]) Subjective Physical Therapy Visit Type Type Treatment Note Visit Start Time 11:10 Visit Stop Time 11:34 Total Visit Minutes 24 Notes advertising manager discussing SNF options w/ pts upon arrival from therapy. Physical Therapy Visit Comments Patient Comments Pt agreeable to work with therapy. Therapy Pain Assessment Pain When Pain Assessed During Mobility Pain Present Pain Present Pain Reported Location Lower Back Scale Used no number given, increases w/ movement Pain Behaviors Wincing Pain Management Techniques Re-positioning M4 PT-IP Mobility and Gait Start: 12/18/19 08:41 Freq: NEEDED Status: Active Protocol: Document 12/20/19 11:10 KS (Rec: 12/20/19 13:37 KS [id number]) PT-Bed Mobility Assessment Rolling Type of Rolling Log Rolling Level of Assist Contact Guard Assistance,1 Person Assistance Supine to Sit Supine to Sit Contact Guard Assistance, Minimal Assistance,1 Person Assistance Sit to Supine Sit to Supine Contact Guard Assistance,1 Person Assistance Scooting Scooting to Edge of Bed Standby Assistance Scooting Up and Down in Bed Standby Assistance PT-Transfer Assessment Sit to and From Stand Sit to and from Stand Contact Guard Assistance,1 Person Assistance,Use of Upper Extremities Equipment Transfer Assistive Device Gait Belt,4 Wheeled Walker Orthotic/Prosthetic Devices or Brace: No Transfers Transfer Destination Bed,Toilet Transfer Technique Pt ambulated w/ FWW. Transfer Ability Level of Assist Contact Guard Assistance Comments Mobility Comments Pt was in bed upon arrival from therapy and reported moderate pain, but did not give a number. At first, patient was reluctant to work w/ therapy, but then agreed to do exercises in bed. Performed ankle pumps, heel slides, quad sets, and SLR. Pt has more pain when using R LE during all exercises except SLR, which causes more pain in L side of back. After exercises, pt said he needed to use bathroom. CGA to Min A for logroll to R and sidelying <>sit w/ cues to push up from bed. SBA for scooting to EOB and CGA for sit<>stand w/ personal 4WW. Pt then ambulated to bathroom SBA w/ 4WW and went to sink to wash hands before returning to bed. CGA for stand<>sit and logroll back into bed. SBA for scooting up in bed. Pt left in bed w/ all needs in reach and nursing present in room. Gait Assessment Gait Gait Assistance Required: Standby Assistance,Contact Guard Assist,1 Person Assist Distance (Feet) 25 Able to Maintain Weight Bearing Status Yes During Gait Assistive Devices Assistive Device Gait Belt,4 Wheeled Walker Orthotic/Prosthetic Devices or Brace: No Gait Deviations General Gait Pattern Antalgic,Decreased Stride Length,Decreased Feet Clearance,Flexed Trunk Factors Limiting Gait Function Factors Limiting Gait Function Decreased Activity Tolerance, Decreased Sensation,Decreased Strength,Pain,Poor Balance Comments Gait Comments Pt ambulated ~25 ft this treatment from bed to bathroom to sink and back to bed. Pt reported increased pain w/ ambulation. Pt continues to have decreased foot clearance and stride length d/t low activity tolerance and pain. Stair Climbing Assessment Comments Stair Climbing Comments Not assessed at this time. PT-Balance Assessment Sitting Balance and Reactions Static Sitting Balance Ability Good Dynamic Sitting Balance Ability Good Standing Balance and Reactions Static Standing Balance Ability Good Dynamic Standing Balance Ability Fair Device Used FWW M5 PT-IP Objective Assessments Start: 12/18/19 08:41 Freq: NEEDED Status: Active Protocol: Document 12/18/19 11:18 AW (Rec: 12/18/19 11:49 AW [id number]) Orientation Orientation/Cognition Level of Alertness Alert Orientation Name,Day of Week,Place, Situation Language Function Ability No Deficits Noted Safety Awareness Understands Safety Issues Memory Description No Deficits Noted Gross Range of Motion Upper Extremity ROM Assessment Bilaterally Impaired Impairments Active GH flexion limited to ~ 135 degrees Lower Extremity ROM Assessment Bilaterally Impaired Strength Upper Extremity Strength Assessment Bilaterally Impaired Lower Extremity Strength Assessment Bilaterally Impaired Comments Strength Comments B shoulders 3+/5 R hip 3/5; L hip 4-/5 B knee 4-/5 B ankle 4-/5 MMT limited due to reported pain in lumbar spine Coordination Assessment Gross Coordination Gross Coordination WNL Sensation Assessment Sensation Gross Sensation Right LE Impaired,Left LE Impaired Light Touch Impaired Comments Sensation Comments Impaired light touch to bilateral feet secondary to neuropathy Muscle Tone Muscle Tone WNL Yes M6 PT-IP Treatment Start: 12/18/19 08:41 Freq: NEEDED Status: Active Protocol: Document 12/20/19 11:10 KS (Rec: 12/20/19 13:37 KS [id number]) Physical Therapy Treatment Exercises Exercises Ankle Pumps,Quad Sets,Heel Slides,Straight Leg Raises Education Education Provided Safety M7 PT-IP Assessment and Plan Start: 12/18/19 08:41 Freq: NEEDED Status: Active Protocol: Document 12/20/19 11:10 KS (Rec: 12/20/19 13:37 KS [id number]) PT Summary Assessment and Plan Potential Rehabilitation Potential Good Status of Condition at Evaluation Stable Summary Impairments Pain,ROM,Strength,Balance, Sensation,Bed Mobility, Transfers,Gait,Activity Tolerance Assessment Summary Telly was reluctant to participate in therapy this morning due to reported pain, but agreed to perform exercises in bed. Performed 1X10 ankle pumps,and 1X5 heel slides, quad sets, and SLR. CGA to Min A for bed mobility, SBA for scooting to EOB and up in bed. CGA for sit<>stand w/ 4ww and ambulation. Will attempt further ambulation this afternoon when pts is present. Goals Bed Mobility Goal Standby Assistance Transfer Goal Standby Assistance Gait Goal Standby Assistance,Four Wheel Walker Gait Distance 300 Other Goals - up/down 12 step x 2 CGA/LACQUER MACHINE FEEDER - up/down 6 steps with unilateral rail SBA Days to Meet Goals 5 Frequency of Treatment Frequency Of Treatment Twice a Day Treatment Plan Physical Therapy Treatment Plan Bed Mobility Training,Transfer Training,Gait Training, Therapeutic Exercise,Balance Retraining,Post Op Education, Discharge Planning,Hot or Cold Pack,Neuromuscular Re-ed, Coordination Retraining,Manual Therapy Other Recommendations and Next Treatment further ambulation, caregiver Focus training, stair training Recommendations To Nursing Amount of Assist Needed Standby Assistance Discharge Recommendations PT Discharge Recommendations Home with Assistance, Outpatient PT
--- NOTE | 2019-12-20 11:55 | CM.DPC ---
Addendum entered by Enid Juarez LPN 12/20/19 14:08: April has confirmed acceptance of pt tomorrow is stable for same. She cautions that pt needs to understand that he cannot smoke at the facility. (Effie confirms he smokes 10-15 cigarettes a day and does not like nicotine patches). She also said acceptance was pending pt's pain management stability. Effie returned from her tour, noted that her would not likely approve of the overall [place] [facility] setting but she is very convinced at this time that, unless he improves markedly, the home/boat setting will be a disaster. She does not want to look at other options outside of [place] and she is strongly encouraging her to [facility] plan. She notes he is angry at me and in general...he is in so much pain and has been for along time. He is not thinking realistically about this. Met then with pt without Effie in the room. Updated him on the acceptance at [facility] should he and the orthopedic team decide on this plan. He stated he appreciated this. He was going to work with PT again this afternoon and hoped he would do a lot better. He states If I need to go to the facility then I will do that. Will plan to check in early tomorrow with ortho team, pt and Effie and go from there. Plan for this afternoon is caregiver training with NIKOLAS, Effie and pt. Original Note: DCP: continued: Case received and discussed in Team Rounds and then with rounding ortho WENDY Al. Mikaela reports pt is very slow to mobilize in part due to his difficulty with severe pain and finding a tx plan that will help stabilize this, his malnourished state make more complex by a very recent thyroid disorder dx and diabetes. Mikaela states the ortho team recommendation at this time is snf. OT Angela met with pt and his and agrees with same. Met now with pt and his in followup. Pt notes he is in too much pain to talk and wishes to defer all discussion re plans to his Effie. He adds that he agrees a snf rehab stay is likely needed. Met then with Effie. She shows pictures of the boat she and her live on at [facility] and notes the limitations of going back to it before getting more rehab, including very limited space to ambulate. She notes several challenges getting safely in and off the boat. She also notes her husbands multiple medical issues, some of which are just getting diagnosed and treat ed with his new PCP: Yaa Garcia/[facility]. She also says the fisher spear Diana has been extremely helpful. SNF setting including care and financial specifics discussed with Effie agreeing that this will likely be needed, especially if pt is to d/c tomorrow. SNF choice list: given: decision: [facility] ([facility] in part as this is the only snf in [place], is close to the hospital and she will have easy access to provide supportive care to her while he is in the snf setting. Referral: given to April/[facility]: she will review, anticipates acceptance but will call back later. She is not sure she can take another admission tomorrow but if not then would be able to Sunday. Effie is encouraged to tour and then discuss further with her . She has gone over to the facility to do so.
[2019-12-20 12:20] VITALS: BP 129/75; PULSE 87; RESP 16; TEMP 37.8; O2SAT 95
--- NOTE | 2019-12-20 14:20 | PC.NURSE ---
Dressing to back changed to Coversite plus. No drainage or bruising present..Cromwell intact. Pt stated his back was itchy from the adhesive from the prior dressing-washed and dried back and Pt reported that he was much more comfortable.
--- NOTE | 2019-12-20 14:22 | PT.IPTN ---
Current Diagnoses Disorder of thyroid, unspecified (12/17/19) Other spondylosis with radiculopathy, lumbosacral region (12/17/19) Spinal stenosis, lumbar region without neurogenic claudication (12/17/19) Arthrodesis status (12/17/19) Surgery Performed Operation Date: 12/17/19 07:45 Actual Procedures p L4-5 hemilaminectomy,L5-S1 TLIF with posterior instrumentation(Not Applicable) - Seema Arguello MD Physical Therapy Treatment Note M2 PT-IP Current Condition Start: 12/18/19 08:41 Freq: NEEDED Status: Active Protocol: Document 12/18/19 11:18 AW (Rec: 12/18/19 11:49 AW [email or web address]) Physical Therapy Current Condition Current Condition Evaluation Date 12/18/19 Treatment Diagnosis s/p L4-5 brittany-lami, L5-S1 TLIF , impaired mobility Onset Date 12/17/19 Precautions Lumbar Precautions Log Roll,No Twisting,Limit Bending,Lifting Restriction of 10 lbs,Gait Belt above Incisional Area Weight Bearing Status Weight Bearing Status Full Weight Bearing M3 PT-IP Subjective Start: 12/18/19 08:41 Freq: NEEDED Status: Active Protocol: Document 12/20/19 14:07 KS (Rec: 12/20/19 15:19 KS [email or web address]) Subjective Physical Therapy Visit Type Type Treatment Note Visit Start Time 14:07 Visit Stop Time 14:22 Total Visit Minutes 15 Notes Pts present during second half of treatment. Pts offers that she would feel more comfortable doing further stair and ambulation training tomorrow morning. She has pictures of home/boat and stairs. Also spoke w/ telehealth case manager after treatment and updated her on pts progress. Number of BOBBIN CLEANER Visits 3 Physical Therapy Visit Comments Patient Comments Pt agreeable to work with therapy. Patient Goals Pt still hopes to d/c home to boat w/ , but wants to keep SNF option open as last resort. Therapy Pain Assessment Pain When Pain Assessed During Mobility Pain Present Pain Present Pain Reported Location Lower Back Scale Used no numer given, less pain than earlier today M4 PT-IP Mobility and Gait Start: 12/18/19 08:41 Freq: NEEDED Status: Active Protocol: Document 12/20/19 14:07 KS (Rec: 12/20/19 15:19 KS [email or web address]) PT-Bed Mobility Assessment Rolling Type of Rolling Log Rolling Level of Assist Contact Guard Assistance,1 Person Assistance Supine to Sit Supine to Sit Contact Guard Assistance, Minimal Assistance,1 Person Assistance Sit to Supine Sit to Supine Standby Assistance,1 Person Assistance Scooting Scooting to Edge of Bed Standby Assistance Scooting Up and Down in Bed Standby Assistance PT-Transfer Assessment Sit to and From Stand Sit to and from Stand Contact Guard Assistance,1 Person Assistance,Use of Upper Extremities Equipment Transfer Assistive Device Gait Belt,4 Wheeled Walker Orthotic/Prosthetic Devices or Brace: No Transfers Transfer Destination Bed Transfer Technique Pt ambulated w/ 4WW. Transfer Ability Level of Assist Contact Guard Assistance Comments Mobility Comments Pt was in bed upon arrival from PT, reported that he is feeling better this afternoon. CGA to Min A logroll to R and sidelying<>sit. SBA for scooting EOB and CGA and cues for brake application for sit< >stand w/ 4WW. Pt then ambulated w/ 4WW and returned to room. CGA for stand<>sit, no cues required for proper 4WW use/brake application. Pt demonstrated proper technique of reaching back to slowly lower into bed. SBA for scooting back in bed, and SBA to CGA for logroll back into bed. Pt left in bed w/ in room and all needs in reach. Pt refused SCDs. Gait Assessment Gait Gait Assistance Required: Standby Assistance,1 Person Assist Distance (Feet) 325 Able to Maintain Weight Bearing Status Yes During Gait Assistive Devices Assistive Device Gait Belt,4 Wheeled Walker Orthotic/Prosthetic Devices or Brace: No Gait Deviations General Gait Pattern Antalgic,Decreased Stride Length,Decreased Feet Clearance,Flexed Trunk Factors Limiting Gait Function Factors Limiting Gait Function Decreased Activity Tolerance, Decreased Sensation,Decreased Strength,Pain,Poor Balance Comments Gait Comments Pt had much better tolerance for ambulaton this afternoon and walked ~325 feet around loop, down hallway and back all w/ SBA. Pts present during second half of ambulation. Cues for upright posture and staying inside 4WW . Pt required no rest breaks during ambulation. Stair Climbing Assessment Comments Stair Climbing Comments Not assessed at this time. PT-Balance Assessment Sitting Balance and Reactions Static Sitting Balance Ability Good Dynamic Sitting Balance Ability Good Standing Balance and Reactions Static Standing Balance Ability Good Dynamic Standing Balance Ability Fair Device Used FWW M5 PT-IP Objective Assessments Start: 12/18/19 08:41 Freq: NEEDED Status: Active Protocol: Document 12/18/19 11:18 AW (Rec: 12/18/19 11:49 AW [email or web address]) Orientation Orientation/Cognition Level of Alertness Alert Orientation Name,Day of Week,Place, Situation Language Function Ability No Deficits Noted Safety Awareness Understands Safety Issues Memory Description No Deficits Noted Gross Range of Motion Upper Extremity ROM Assessment Bilaterally Impaired Impairments Active GH flexion limited to ~ 135 degrees Lower Extremity ROM Assessment Bilaterally Impaired Strength Upper Extremity Strength Assessment Bilaterally Impaired Lower Extremity Strength Assessment Bilaterally Impaired Comments Strength Comments B shoulders 3+/5 R hip 3/5; L hip 4-/5 B knee 4-/5 B ankle 4-/5 MMT limited due to reported pain in lumbar spine Coordination Assessment Gross Coordination Gross Coordination WNL Sensation Assessment Sensation Gross Sensation Right LE Impaired,Left LE Impaired Light Touch Impaired Comments Sensation Comments Impaired light touch to bilateral feet secondary to neuropathy Muscle Tone Muscle Tone WNL Yes M6 PT-IP Treatment Start: 12/18/19 08:41 Freq: NEEDED Status: Active Protocol: Document 12/20/19 14:07 KS (Rec: 12/20/19 15:19 KS [email or web address]) Physical Therapy Treatment Education Education Provided Safety M7 PT-IP Assessment and Plan Start: 12/18/19 08:41 Freq: NEEDED Status: Active Protocol: Document 12/20/19 14:07 KS (Rec: 12/20/19 15:19 KS [email or web address]) PT Summary Assessment and Plan Potential Rehabilitation Potential Good Status of Condition at Evaluation Stable Summary Impairments Pain,ROM,Strength,Balance, Sensation,Bed Mobility, Transfers,Gait,Activity Tolerance Assessment Summary Pt was feeling better and had more tolerance for activity/ ambulation this afternoon. CGA to Min A for logroll and sidelying<>sit EOB, SBA for scooting to EOB. CGA for sit<> stand w/ cues for brake application of 4WW. Ambulated ~325 ft w/ 4WW and no rest breaks SBA. Cues for upright posture and inside 4WW. CGA for stand<>sit and SBA to CGA for logroll back into bed. Goals Bed Mobility Goal Standby Assistance Transfer Goal Standby Assistance Gait Goal Standby Assistance,Four Wheel Walker Gait Distance 300 Other Goals - up/down 12 step x 2 CGA/TOOL INSPECTOR - up/down 6 steps with unilateral rail SBA Days to Meet Goals 5 Treatment Plan Physical Therapy Treatment Plan Bed Mobility Training,Transfer Training,Gait Training, Therapeutic Exercise,Balance Retraining,Post Op Education, Discharge Planning,Hot or Cold Pack,Neuromuscular Re-ed, Coordination Retraining,Manual Therapy Other Recommendations and Next Treatment Reassess caregiver training w/ Focus ambulation w/ 4WW and stairs. Recommendations To Nursing Amount of Assist Needed Standby Assistance,1 Person Assist Discharge Recommendations PT Discharge Recommendations Home with Assistance, Outpatient PT
[2019-12-20 16:14] VITALS: BP 134/83; PULSE 87; RESP 17; TEMP 36.8; O2SAT 94
[2019-12-20 20:58] VITALS: BP 124/69; PULSE 90; RESP 17; TEMP 36.8; O2SAT 93
[2019-12-20] MEDS: ATORVASTATIN 20 MG TABLET 10 MG PO (21:26)
[2019-12-20] MEDS: SENNOSIDES 8.6 MG TABLET 17.2 MG PO (21:27)
[2019-12-20 23:30] VITALS: BP 158/83; PULSE 94; RESP 20; TEMP 36.9; O2SAT 98
[2019-12-21] MEDS: HYDROMORPHONE 4 MG TABLET PO ×3 (00:45→09:37)
[2019-12-21 04:50] VITALS: BP 149/81; PULSE 95; RESP 16; TEMP 36.6; O2SAT 95
[2019-12-21] MEDS: LEVOTHYROXINE 50 MCG TABLET PO (05:56)
--- NOTE | 2019-12-21 06:23 | PC.NURSE ---
Pt is doing well. Pain seems more manageable than the previous night. Relieved with 4mg PO Dilaudid. Fingerstick 240 overnight. b/l SCDs on throughout night. Voided 425mL in urine
[2019-12-21 08:00] VITALS: BP 152/79; PULSE 82; RESP 14; TEMP 36.9; O2SAT 96
[2019-12-21] MEDS: glipiZIDE XL 5 MG TAB 10 MG PO (08:06)
[2019-12-21] MEDS: GABAPENTIN 300 MG CAPSULE PO (08:08)
[2019-12-21] MEDS: MAG HYDROX/ALUM/SIMETH 30 ML UDC PO (08:08)
[2019-12-21] MEDS: SODIUM CHLORIDE 0.9% FLUSH 10 ML IV (08:09)
[2019-12-21] MEDS: TAMSULOSIN 0.4 MG CAPSULE PO (08:09)
[2019-12-21] MEDS: DOCUSATE 100 MG CAPSULE PO (08:09)
[2019-12-21] MEDS: METFORMIN HCL 500 MG TABLET PO (08:10)
[2019-12-21] MEDS: INSULIN ASPART 100 UNIT/ML INSULN PEN SUBCUT (08:11)
[2019-12-21] MEDS: INSULIN GLARGINE 100 UNIT/ML 3ML PEN 16 UNIT SUBCUT (08:12)
--- NOTE | 2019-12-21 09:29 | PM.DS.1 ---
History of Present Illness History of Present Illness Date Patient Seen: 12/21/19 Time Patient Seen: 09:29 Chief complaint: [id number] Narrative: The history and physical are contained in the chart previously completed note. Please refer to that note for this information. Discharge Providers Provider Date of admission: 12/17/19 06:02 Discharge Date: 12/21/19 Primary care physician: Yaa Garcia MD Consults: 12/03/19 12:36 Consult to Anesthesiology Routine Comment: Consulting Provider: Anesthesiologist Reason for consultation: Surgeon requested re: Cardiac Consult to Respiratory Therapy Evaluate & Treat Comment: Physician Instructions: Evaluate and treat 12/17/19 07:22 Consult to Respiratory Therapy Evaluate & Treat Comment: Physician Instructions: Evaluate and treat 12/17/19 12:02 Consult to Occupational Therapy Evaluate & Treat Comment: Physician Instructions: Evaluate and treat Consult to Physical Therapy Evaluate & Treat Comment: Physician Instructions: Evaluate and Treat 12/17/19 12:26 Consult to Dietitian, Adult Routine Comment: Reason For Exam: Recent 40 pound weight loss. Discharge provider: Lg Cherry MD Summary Hospital Course Discharge Diagnosis: 1. Lumbar spinal stenosis Hospital Course: Patient was admitted to the hospital and taken directly to the operating room on December 17, 2019 where he underwent a L4 through S1 decompression and L5-S1 fusion by Dr. Seema Arguello. He tolerated the procedure well but made slow progress with physical therapy postoperatively. The patient's home environment is not ideal as [place]. He was continued with physical therapy through postoperative day 4 and appeared to make enough progress on the afternoon of postoperative day 3 and in the morning on postoperative day 4 that discharge to the boat would be safe. Status at Discharge Cognitive/behavioral status at discharge: oriented Functional status at discharge: uses cane/walker Overall status at discharge: patient is progressing back to baseline Time Spent with Patient Time spent: Less than 30 minutes Exam Vital Signs (past 8 hours): - 12/21/19 04:50 12/21/19 08:00 Temperature 97.8 F 98.5 F Pulse Rate 95 H 82 Respiratory Rate 16 14 Blood Pressure 149/81 H 152/79 H Pulse Oximetry 95 96 Oxygen Delivery Method Room Air Oxygen Flow Rate 0 Narrative Exam Narrative: Spinal wound is dressed with mild drainage on the bandage. Light touch and motion are intact in both lower extremities. Discharge Plan Discharge Plan Patient Disposition: Home Discharge orders & Medications Prescriptions: New acetaminophen 325 mg Tablet 650 mg PO Q6HR PRN (Reason: Pain, Mild (1-3)) Qty: 60 RF: 0 tamsulosin [Flomax] 0.4 mg Capsule 0.4 mg PO DAILY Qty: 30 RF: 0 hydroxyzine pamoate 25 mg Capsule 50 mg PO Q4HR PRN (Reason: Muscle Spasm) Qty: 60 RF: 0 hydromorphone 2 mg Tablet 2 mg PO Q4H PRN (Reason: Pain, Moderate (4-6)) Qty: 40 RF: 0 docusate sodium [DOK] 100 mg Capsule 100 mg PO BID Qty: 30 RF: 0 Continued glipizide 10 mg Tablet Extended Release 24hr 10 mg PO DAILY RF: 0 gabapentin 300 mg Capsule 300 mg PO BID RF: 0 levothyroxine 25 mcg Tablet 50 mcg PO DAILY RF: 0 atorvastatin 40 mg tablet 10 mg PO DAILY RF: 0 aspirin [Aspir-81] 81 mg Tablet,Delayed Release (Dr/Ec) 81 mg PO DAILY RF: 0 Iron Chews 15 mg Tablet,Chewable 30 mg PO DAILY RF: 0 metformin 500 mg tablet 1,000 mg PO BID RF: 0 insulin glargine 100 unit/mL (3 mL) insulin pen 16 unit subcut QAM RF: 0 Discontinued hydrocodone-acetaminophen 5-325 mg tablet 1 tab PO Q6HR PRN (Reason: dental pain) RF: 0 Follow up/Referrals: Seema Arguello MD [Physician] - 2 Weeks Yaa Garcia MD [Primary Care Provider] - Discharge Health Status Multidrug resistant organism: No MDRO Diet/Activity/Treatments Diet: Diet as Tolerated and Regular Activity: No excessive bending, lifting, or twisting Skin/Wound/Dressing Care Report to your healthcare provider any signs of infection, such as:: chills, fever and increased pain Dressing: Cover site dressing prior to discharge. Leave in place until appointment Visit Report/Discharge Packet Instructions: DI for Prescription Opioid Use, DI for Transforaminal Lumbar Interbody Fusion Stand Alone Forms: Surgery Discharge Discharge Data Primary Care Provider: Yaa Garcia
--- NOTE | 2019-12-21 09:58 | PT.IPTN ---
Current Diagnoses Disorder of thyroid, unspecified (12/17/19) Other spondylosis with radiculopathy, lumbosacral region (12/17/19) Spinal stenosis, lumbar region without neurogenic claudication (12/17/19) Arthrodesis status (12/17/19) Surgery Performed Operation Date: 12/17/19 07:45 Actual Procedures p L4-5 hemilaminectomy,L5-S1 TLIF with posterior instrumentation(Not Applicable) - Seema Arguello MD Physical Therapy Treatment Note M2 PT-IP Current Condition Start: 12/18/19 08:41 Freq: NEEDED Status: Active Protocol: Document 12/18/19 11:18 AW (Rec: 12/18/19 11:49 AW [email or web address]) Physical Therapy Current Condition Current Condition Evaluation Date 12/18/19 Treatment Diagnosis s/p L4-5 brittany-lami, L5-S1 TLIF , impaired mobility Onset Date 12/17/19 Precautions Lumbar Precautions Log Roll,No Twisting,Limit Bending,Lifting Restriction of 10 lbs,Gait Belt above Incisional Area Weight Bearing Status Weight Bearing Status Full Weight Bearing M3 PT-IP Subjective Start: 12/18/19 08:41 Freq: NEEDED Status: Active Protocol: Document 12/21/19 09:40 AW (Rec: 12/21/19 09:58 AW [id number]) Subjective Physical Therapy Visit Type Type Treatment Note Visit Start Time 09:15 Visit Stop Time 09:36 Total Visit Minutes 21 Notes Pt's present during treatment. Ortho present upon therapist arrival, discussing discharge options. Number of MANAGER MINING Visits 0 Physical Therapy Visit Comments Patient Comments Pt feeling much better after steroid treatment, willing to work with PT Patient Goals Pt still hopes to d/c home to boat w/ , but wants to keep SNF option open as last resort. Therapy Pain Assessment Pain When Pain Assessed During Mobility Pain Present Pain Present Pain Reported Location Lower Back Intensity 4 Scale Used 3/10 at rest; 4/10 with mobility Pain Management Techniques Re-positioning M4 PT-IP Mobility and Gait Start: 12/18/19 08:41 Freq: NEEDED Status: Active Protocol: Document 12/21/19 09:40 AW (Rec: 12/21/19 09:58 AW [id number]) PT-Transfer Assessment Sit to and From Stand Sit to and from Stand Standby Assistance,1 Person Assistance,Use of Upper Extremities Equipment Transfer Assistive Device Gait Belt,4 Wheeled Walker Orthotic/Prosthetic Devices or Brace: No Transfers Transfer Technique Pt ambulated w/ 4WW. Transfer Ability Level of Assist Standby Assistance,1 Person Assistance,Use of Upper Extremities Comments Mobility Comments Pt sitting up in chair upon therapist arrival, talking with ortho. Pt stood using 4WW SBA and demonstrating good safety and brakes management with 4WW. After gait training, pt transferred back to the chair SBA with good sequencing , no need for verbal cues. Pt repositioned in the chair with call light in reach, present. Gait Assessment Gait Gait Assistance Required: Standby Assistance,1 Person Assist Distance (Feet) 325 Able to Maintain Weight Bearing Status Yes During Gait Assistive Devices Assistive Device Gait Belt,4 Wheeled Walker Orthotic/Prosthetic Devices or Brace: No Gait Deviations General Gait Pattern Antalgic,Decreased Feet Clearance,Flexed Trunk Factors Limiting Gait Function Factors Limiting Gait Function Decreased Activity Tolerance, Decreased Sensation,Decreased Strength,Pain,Poor Balance Comments Gait Comments Pt tolerated ambulation 325 feet with 4WW with only 1- point increase in reported pain. His step length is improved and he is safe with the 4WW. Stair Climbing Assessment Evaluation Level of Assist On Stairs Standby Assistance,1 Person Assistance Devices Stair Climbing Assistive Devices Left Railing,Right Railing Technique/Endurance Stair Climbing Direction Ascend and Descend Stair Climbing Technique Step Over Step,Step to Step Number of Steps Climbed 3 Stair Climbing Set # Repetitions (reps) 2 Comments Stair Climbing Comments Pt completed two sets of stairs with unilateral rail. He used step over step pattern to ascend and step-to pattern to descend. No more than SBA required. PT-Balance Assessment Sitting Balance and Reactions Static Sitting Balance Ability Good Dynamic Sitting Balance Ability Good Standing Balance and Reactions Static Standing Balance Ability Good Dynamic Standing Balance Ability Good Device Used 4WW M5 PT-IP Objective Assessments Start: 12/18/19 08:41 Freq: NEEDED Status: Active Protocol: Document 12/18/19 11:18 AW (Rec: 12/18/19 11:49 AW [email or web address]) Orientation Orientation/Cognition Level of Alertness Alert Orientation Name,Day of Week,Place, Situation Language Function Ability No Deficits Noted Safety Awareness Understands Safety Issues Memory Description No Deficits Noted Gross Range of Motion Upper Extremity ROM Assessment Bilaterally Impaired Impairments Active GH flexion limited to ~ 135 degrees Lower Extremity ROM Assessment Bilaterally Impaired Strength Upper Extremity Strength Assessment Bilaterally Impaired Lower Extremity Strength Assessment Bilaterally Impaired Comments Strength Comments B shoulders 3+/5 R hip 3/5; L hip 4-/5 B knee 4-/5 B ankle 4-/5 MMT limited due to reported pain in lumbar spine Coordination Assessment Gross Coordination Gross Coordination WNL Sensation Assessment Sensation Gross Sensation Right LE Impaired,Left LE Impaired Light Touch Impaired Comments Sensation Comments Impaired light touch to bilateral feet secondary to neuropathy Muscle Tone Muscle Tone WNL Yes M6 PT-IP Treatment Start: 12/18/19 08:41 Freq: NEEDED Status: Active Protocol: Document 12/21/19 09:40 AW (Rec: 12/21/19 09:58 AW [id number]) Physical Therapy Treatment Education Education Provided Safety Other Treatments Other Treatment Performed Caregiver training for stairs, ambulation, and transfers. Pt 's safely provided appropriate level of assist and cues. M7 PT-IP Assessment and Plan Start: 12/18/19 08:41 Freq: NEEDED Status: Active Protocol: Document 12/21/19 09:40 AW (Rec: 12/21/19 09:58 AW [id number]) PT Summary Assessment and Plan Potential Rehabilitation Potential Good Status of Condition at Evaluation Stable Summary Impairments Pain,ROM,Strength,Balance, Sensation,Bed Mobility, Transfers,Gait,Activity Tolerance Progress Towards Goals Progressing Toward Goals Assessment Summary Pt reports improved pain control and demonstrated increased activity tolerance. He was seen this morning three hours after last dose of dilaudid. He and his feel they will be able to manage stairs on and off the boat. They are able to use a wheelchair from the car to the boat ramp, so pt will not need to walk the entire distance from car to boat. Pt navigated the stairs SBA and would be able to do so to board his boat. Pt's notes they also have the option of using a boat ladder with 8 steps and a sturdy railing to get on and off the boat. Pt states he feels comfortable using the stairs and understands the importance of disembarking at least once per day to walk for exercise since there is not enough room on the boat to walk. With improved pain control, this pt is appropriate to discharge home with spouse support. Goals Bed Mobility Goal Standby Assistance Transfer Goal Standby Assistance Gait Goal Standby Assistance,Four Wheel Walker Gait Distance 300 Other Goals - up/down 12 step x 2 CGA/STITCH WHEELER - up/down 6 steps with unilateral rail SBA Days to Meet Goals 4 Frequency of Treatment Frequency Of Treatment Twice a Day Treatment Plan Physical Therapy Treatment Plan Bed Mobility Training,Transfer Training,Gait Training, Therapeutic Exercise,Balance Retraining,Post Op Education, Discharge Planning,Hot or Cold Pack,Neuromuscular Re-ed, Coordination Retraining,Manual Therapy Recommendations To Nursing Amount of Assist Needed Standby Assistance Discharge Recommendations PT Discharge Recommendations Home with Assistance, Outpatient PT
--- NOTE | 2019-12-21 10:30 | PC.NURSE ---
Pt is dressed and ready for discharge home with spouse. Encouraged po fluid and food intake. Reminded Pt no driving while on narcotics. Went over d/c meds, discussed time of last dose, reviewed back protection steps: no bending, lifting, or twisting. Pt's Spouse has set up assistance for Pt to be able to board his boat and encouraged Pt to get up and move around on boat as able. Reviewed stroke education and Pt already has follow up set up. Pt and Spouse denied further questions and will be ready to be taken out via w/c by PROPERTY INSURANCE AGENT with Spouse and all belongings.
--- NOTE | 2019-12-21 12:59 | CM.DPC ---
DCP: continued: Pt continued to improve with PT and with a strong desire to d/c to his home (boat) setting. PT planned to see pt again today. A check in now shows that pt did d/c to boat as planned and with 's prn support.
== END 2019-12-21 11:02 | disposition home or self-care (01) | DRG 453 ==
PROVIDERS: Admitting Provider Orthopaedic Surgery Orthopaedic Surgery of the Spine; PCP Internal Medicine; Visit Provider Orthopaedic Surgery Orthopaedic Surgery of the Spine
PROC: 0SG30AJ Fusion of Lumbosacral Joint with Interbody Fusion Device, Posterior Approach, Anterior Column, Open Approach (ICD-10-PCS; principal; 2019-12-17 07:45)
DX: M48.07 Spinal stenosis, lumbosacral region (principal); E43 Unspecified severe protein-calorie malnutrition; Z68.1 Body mass index [BMI] 19.9 or less, adult; E11.42 Type 2 diabetes mellitus with diabetic polyneuropathy; R33.9 Retention of urine, unspecified; G89.18 Other acute postprocedural pain; M47.26 Other spondylosis with radiculopathy, lumbar region; M47.27 Other spondylosis with radiculopathy, lumbosacral region; I25.10 Atherosclerotic heart disease of native coronary artery without angina pectoris; M48.061 Spinal stenosis, lumbar region without neurogenic claudication; E78.5 Hyperlipidemia, unspecified; E03.9 Hypothyroidism, unspecified; F17.210 Nicotine dependence, cigarettes, uncomplicated; Z79.4 Long term (current) use of insulin
CPT/HCPCS: 72100; 76000; 82962; 97110; 97116; 97161; 97165; 97530; 99406; C1776; C9290; J0330; J1100; J1170; J2405; J2704; J3010

== ENCOUNTER 2019-12-23 11:31 | Observation (INO) | payer MEDICARE, SELFPAY ==
[2019-12-17 12:04] VITALS: BMI 16.3
[2019-12-23 11:24] VITALS: BP 167/88; PULSE 90; RESP 18; TEMP 36.6; O2SAT 98
--- NOTE | 2019-12-23 12:33 | DI.RAD.S_ITS ---
PROCEDURE: XR LUMBAR SPINE 2-3V INDICATIONS: s/p laminectomy, felt a pop and severe pain ever since TECHNIQUE: 2 views of the lumbar spine were acquired. COMPARISON: [facility], CR, XR LUMBAR SPINE 2-3V, 03/18/2019, 13:18. [facility], CR, XR LUMBAR SPINE 2-3V, 12/17/2019, 11:03. FINDINGS: Bones: There are 5 lumbar-type vertebral bodies. The lowest intervertebral disk space is designated as L5-S1. The vertebral body heights are well-maintained without evidence to suggest an acute compression fracture. Interval postsurgical changes are identified related to a lumbosacral discectomy and fusion. Interbody spacer is present at L5-S1. Bilateral transpedicular screws are fixed in place by posterior fixation rods. Orthopedic hardware is intact. The alignment through this region is well-maintained. Moderate multilevel degenerative changes of the lumbar spine primarily evident involving the lumbar facet joints. Soft tissues: Skin tray are evident along the dorsal lumbar soft tissues. Aortic atherosclerosis is present. A few borderline prominent small bowel loops are seen within the left upper quadrant, suggestive of ileus. Large amount of stool is seen within the colon. Otherwise, the soft tissues of the imaged abdomen and pelvis are within normal limits. IMPRESSION: 1. Interval postoperative changes related to an L5-S1 discectomy and fusion. Alignment appears to be within normal limits. 2. No displaced lumbar fractures. If there is high clinical concern for an acute fracture, please consider CT for further evaluation. 3. Probable constipation. Dictated by: Jed Fraire M.D. on 12/23/2019 at 13:47 Approved by: Jed Fraire M.D. on 12/23/2019 at 13:50
--- NOTE | 2019-12-23 12:36 | PC.NURSE ---
post op from sunday.
--- NOTE | 2019-12-23 12:36 | ED.BACK ---
HPI - Back Pain/Injury General Chief Complaint: Back Pain/Injury Stated Complaint: Severe back pain s/p lumbar proc 1 week ago Time Seen by Provider: 12/23/19 12:19 Source: patient History of Present Illness HPI Narrative: The patient is a 64-year-old male who states that he had surgery on his back for laminectomy last week Sunday. He went home on Sunday. [place] on a boat and with difficulty they got him on the boat. Lying on the couch Sunday he was adjusting his position and he felt a pop in his back. Initially he did not have any pain or discomfort but then slowly developed progressively worsening pain and discomfort which has become severe since then. The patient came into the emergency department today to be evaluated. The pain is at least 7 to 8/10 and worse with any type of movement. The pain is primarily consistent dull achy discomfort that becomes sharp with spasms on movement. He denies any numbness tingling loss of sensation. Initially prior to surgery he had shooting pains down his right leg now he is having shooting pains in the left leg. The pain after surgery is worse in the pain prior to surgery and before his evaluation. He admits to smoking cigarettes and drinking alcohol. He is taking hydroxyzine Tylenol and hydromorphone 2 mg every 4 hours for pain and discomfort. He currently denies any headache or confusion. He has had no fever or sweats but has had intermittent chills. He has had a cough that has been minimally productive of sputum. He denies shortness of breath or chest pain. He has had no palpitations or dizziness. He has had nausea and constipation but no melena or hematochezia. He denies vomiting or diarrhea or any urinary symptoms. Related Data Home Medications Medication Instructions Recorded Confirmed Iron Chews 30 mg PO DAILY 11/30/18 12/23/19 aspirin [Aspir-81] 81 mg PO DAILY 11/30/18 12/23/19 insulin glargine 16 unit SUBCUT QAM 03/14/19 12/23/19 metformin 1,000 mg PO BID 03/14/19 12/23/19 gabapentin 300 mg PO BID 12/03/19 12/23/19 glipizide 10 mg PO DAILY 12/03/19 12/23/19 levothyroxine 50 mcg PO DAILY 12/17/19 12/23/19 acetaminophen 1,000 mg PO QID PRN 12/23/19 12/23/19 atorvastatin 10 mg PO DAILY 12/23/19 12/23/19 docusate sodium [DOK] 100 mg PO BID PRN 12/23/19 12/23/19 hydrocodone-acetaminophen 1 tab PO DAILY 12/23/19 12/23/19 Previous Rx's Medication Instructions Recorded hydroxyzine pamoate 50 mg PO Q4HR PRN #60 cap 12/20/19 tamsulosin [Flomax] 0.4 mg PO DAILY #30 cap 12/20/19 hydromorphone 2 mg PO Q4H PRN #40 tab 12/21/19 Allergies Allergy/AdvReac Type Severity Reaction Status Date / Time Penicillins Allergy Intermediate Hives Verified 12/17/19 06:50 Review of Systems Review of Systems ROS Unobtainable: All systems reviewed & are unremarkable except as noted in HPI and below Patient History Medical History Coronary artery disease (Acute) Current every day smoker (Acute) Diabetes (Acute) DKA (diabetic ketoacidosis) (Acute 11/2018) Esophageal polyp (Acute ~10/2018) Herniated disc (Acute) High cholesterol (Acute) HLD (hyperlipidemia) (Acute) HTN (hypertension) (Acute) Hypothyroid (Acute) Iron deficiency anemia (Acute) Lumbar spine pain (Acute) Peripheral polyneuropathy (Acute) Severe protein-calorie malnutrition (Acute) Surgical History S/P CABG x 5 (Acute ~2002) Stented coronary artery (Acute ~1996) Family History Mother No problems noted. Father No problems noted. Brother No problems noted. Sister No problems noted. Social History household members: spouse Smoking Status: Current every day smoker alcohol intake: current substance use type: does not use Smoking Status: Current every day smoker alcohol intake frequency: 0-2 drinks per day Substance Use Type: does not use Exam Narrative Exam Narrative: PHYSICAL EXAM: CONSTITUTIONAL: Awake, Alert, Oriented, Coherent, Cooperative in moderate distress lying in a semi recumbent position on his back. HEAD: AT/NC EENT: PERRL, FROM of eyes, no discharge, no nystagmus Oral mucosa is moist and pink, posterior pharynx is without erythema or exudate. NECK: Supple, no obvious JVD, Trachea is midline without stridor, no palpable LN or masses. SPINE: The patient has no tenderness to palpation over the cervical or thoracic spine. Over the lower lumbar spine the patient has a bandage. He is diffusely tender directly over the spine and over the left paraspinous muscles in the left flank. He has mild left costovertebral angle tenderness no significant right costovertebral angle tenderness. The patient is unable to lift either his right or left legs off the bed secondary to pain and discomfort in his back. THORAX: No deformity, retractions, chest wall tenderness, subcutaneous air or crepitice. LUNGS: Breath sounds are decreased bilaterally but clear and symmetrical. The patient has increased AP chest diameter. HEART: Normal heart tones, regular rhythm and rate without murmur. ABDOMEN: The patient is tender suprapubically with the guarding no rebound. The patient's upper abdomen is nontender. Bowel sounds are present but decreased. EXTREMITIES: No edema, cyanosis, deformity or tenderness. SKIN: No rash, bruising, petechiae or purpura. NEURO: Awake, alert, oriented, conversive, cranial nerves II-XII are symmetrical and normal, moves all 4 extremities . Initial Vital Signs Initial Vital Signs: Vital Signs Temperature 97.9 F 12/23/19 11:24 Pulse Rate 90 12/23/19 11:24 Respiratory Rate 18 12/23/19 11:24 Blood Pressure 167/88 H 12/23/19 11:24 Pulse Oximetry 98 12/23/19 11:24 Course Course Course Narrative: 1443 the patient's x-rays of the lumbosacral spine revealed normal alignment after posterior fusion procedures with an interbody disc cage prosthesis. Position is at L5-S1. There is no malalignment.. Dr. Arguello the surgeon who performed the procedure has been paged to discuss his recommendations. 1619 Dr. Arguello has been re-paged. The patient so far has received 2 doses of Dilaudid 0.5 mg IV for a total of 1 mg. the patient continues to be painful and states that the pain is coming back. He will be administered another 1 mg of Dilaudid. 1635 I have discussed the patient with Dr. Arguello, he would like me to administer 5 mg of Valium and Solu-Medrol and Toradol for pain and discomfort and see whether not the patient can go home. If this does not help his pain and discomfort than he wanted us to call him back. [address] Arguello who has agreed to admit the patient observation status for pain control and physical therapy. Orders Ordered: Discontinued Medications Acetaminophen (Tylenol) 975 mg PO TID PRN PRN Reason: Pain, Mild (1-3) Last Admin: 12/23/19 21:16 Dose: 975 mg Documented by: SKYLAR Aspirin (Aspirin Ec) 81 mg PO DAILY [facility] Last Admin: 12/24/19 08:56 Dose: 81 mg Documented by: CASSANDRA Atorvastatin Calcium (Lipitor) 10 mg PO DAILY [facility] Last Admin: 12/24/19 08:56 Dose: 10 mg Documented by: CASSANDRA Cyclobenzaprine HCl (Flexeril) 10 mg PO NOW ONE Stop: 12/23/19 12:34 Last Admin: 12/23/19 12:40 Dose: 10 mg Documented by: ASIM Dextrose (D50w) 25 gm IV PRN PRN; Protocol PRN Reason: Hypoglycemia Diazepam (Valium) 5 mg IV NOW ONE Stop: 12/23/19 16:43 Last Admin: 12/23/19 16:52 Dose: 5 mg Documented by: NERI Diazepam (Valium) 5 mg PO Q8HR PRN PRN Reason: Muscle Spasm Last Admin: 12/24/19 10:11 Dose: 5 mg Documented by: EKRAME Docusate Sodium (Colace) 100 mg PO BID PRN PRN Reason: Constipation Last Admin: 12/23/19 21:16 Dose: 100 mg Documented by: SKYLAR Gabapentin (Neurontin) 300 mg PO BID [facility] Last Admin: 12/24/19 08:55 Dose: 300 mg Documented by: Admin: 12/23/19 21:16 Dose: 300 mg Documented by: SKYLAR Glipizide (Glucotrol Xl) 10 mg PO DAILY [facility] Last Admin: 12/24/19 08:56 Dose: 10 mg Documented by: CASSANDRA Hydromorphone HCl (Dilaudid) 0.5 mg IV NOW ONE Stop: 12/23/19 12:34 Last Admin: 12/23/19 12:40 Dose: 0.5 mg Documented by: ASIM Hydromorphone HCl (Dilaudid) 0.5 mg IV NOW ONE Stop: 12/23/19 14:13 Last Admin: 12/23/19 14:25 Dose: 0.5 mg Documented by: TELMA Hydromorphone HCl (Dilaudid) 1 mg IV NOW ONE Stop: 12/23/19 16:19 Last Admin: 12/23/19 16:53 Dose: 1 mg Documented by: NERI Hydromorphone HCl (Dilaudid) 2 mg IV Q4HR PRN PRN Reason: Pain, Severe (7-10) Sodium Chloride (Normal Saline 0.9%) 1,000 mls @ 1,000 mls/hr IV BOLUS ONE Stop: 12/23/19 13:32 Last Infusion: 12/23/19 14:13 Dose: 0 mls/hr Documented by: Admin: 12/23/19 12:40 Dose: 1,000 mls/hr Documented by: ASIM Sodium Chloride (Normal Saline 0.9%) 1,000 mls @ 125 mls/hr IV CONT JORGE L Last Admin: 12/24/19 13:24 Dose: 125 mls/hr Documented by: Infusion: 12/24/19 12:13 Dose: 125 mls/hr Documented by: Admin: 12/24/19 04:13 Dose: 125 mls/hr Documented by: Infusion: 12/24/19 04:13 Dose: 125 mls/hr Documented by: Admin: 12/23/19 21:17 Dose: 125 mls/hr Documented by: CGIBSON Insulin Aspart (Novolog Flexpen) 0 unit SUBCUT ACHS JORGE L; Protocol Insulin Glargine (Lantus Solostar (Pen)) 16 unit SUBCUT DAILY JORGE L Last Admin: 12/24/19 08:59 Dose: 16 unit Documented by: CASSANDRA Cosigned by: CMCFARL Ketorolac Tromethamine (Toradol) 30 mg IV NOW ONE Stop: 12/23/19 16:43 Last Admin: 12/23/19 16:52 Dose: 30 mg Documented by: NERI Ketorolac Tromethamine (Toradol) 30 mg IV Q8HR [facility] Stop: 12/28/19 17:43 Last Admin: 12/24/19 14:20 Dose: 30 mg Documented by: Admin: 12/24/19 05:54 Dose: 30 mg Documented by: Admin: 12/23/19 22:30 Dose: 30 mg Documented by: SKYLAR Levothyroxine Sodium (Synthroid) 50 mcg PO DAILY [facility] Last Admin: 12/24/19 10:05 Dose: Not Given Documented by: ADANFARL Levothyroxine Sodium (Synthroid) 50 mcg PO 0600 [facility] Last Admin: 12/24/19 10:03 Dose: 50 mcg Documented by: JACEY Metformin HCl (Glucophage) 1,000 mg PO BID [facility] Last Admin: 12/24/19 08:55 Dose: 500 mg Documented by: Admin: 12/23/19 21:17 Dose: 500 mg Documented by: SKYLAR Metformin HCl (Glucophage) 500 mg PO BID [facility] Methylprednisolone (Solu-Medrol 125 Mg Vial) 125 mg IV NOW ONE Stop: 12/23/19 16:43 Last Admin: 12/23/19 16:52 Dose: 125 mg Documented by: NERI Iron, Carbonyl [Iron (Chews] 30 Mg) 30 mg PO DAILY [facility] Last Admin: 12/24/19 09:59 Dose: Not Given Documented by: [email or web address] Oxycodone HCl (Percolone) 10 mg PO Q3HR PRN PRN Reason: Pain, Moderate (4-6) Last Admin: 12/24/19 14:21 Dose: 10 mg Documented by: Admin: 12/24/19 08:54 Dose: 10 mg Documented by: Admin: 12/23/19 21:16 Dose: 10 mg Documented by: SKYLAR Prednisone (Deltasone) 60 mg PO DAILY [facility] Last Admin: 12/24/19 08:55 Dose: 60 mg Documented by: CASSANDRA Tamsulosin HCl (Flomax) 0.4 mg PO DAILY [facility] Last Admin: 12/24/19 08:55 Dose: 0.4 mg Documented by: CASSANDRA Vital Signs Vital signs: Vital Signs - 8 hr 01/28/20 11:24 Temperature 97.9 F Pulse Rate 90 Respiratory Rate 18 Blood Pressure 167/88 H Pulse Oximetry 98 MDM - Back Pain/Injury Lab Data Result diagrams: 12/23/19 17:23 12/23/19 17:23 Labs: Lab Results 12/23/19 12/23/19 12/23/19 Range/Units 13:49 17:23 17:23 WBC 6.3 (4.5-11.0) X10^3/uL RBC 3.09 L (4.5-5.9) X10^6/uL Hgb 9.6 L (13.5-17.5) g/dL Hct 27.0 L (41-53) % MCV 87.3 (80-100) fL MCH 31.0 (26-34) PG MCHC 35.5 (30-36) % RDW 12.9 (11.6-14.8) % Plt Count 246 (150-400) X10^3/uL Neut % (Auto) 62.4 (50-75) % Lymph % (Auto) 28.4 (25-40) % [place] % (Auto) 7.0 (3-14) % Eos % (Auto) 1.3 L (2-4) % Baso % (Auto) 0.9 (0-2) % Neut # (Auto) 3900 (4682-0616) /uL Lymph # (Auto) 1800 (5627-0981) /uL [place] # (Auto) 400 (0-900) /uL Eos # (Auto) 100 (0-450) /uL Baso # (Auto) 100 (0-100) /uL ESR (0-15) MM/HR Sodium 135 L (137-145) mmol/L Potassium 3.5 (3.4-5.1) mmol/L Chloride 103 (98-107) mmol/L Carbon Dioxide 23 (22-32) mmol/L BUN 14 (9-20) mg/dL Creatinine 0.70 (0.66-1.25) mg/dL Estimated GFR > 60.0 (>60) mL/min BUN/Creatinine Ratio 20.0 (6-22) Glucose 232 H (80-110) mg/dL Calcium 8.8 (8.4-10.2) mg/dL Total Bilirubin 0.3 (0.2-1.3) mg/dL AST 13 L (17-59) IU/L ALT 11 (<50) IU/L Alkaline Phosphatase 63 (38-126) U/L Total Creatine Kinase (55-170) U/L C-Reactive Protein (<1.0) mg/dL Total Protein 6.3 (6.3-8.2) g/dL Albumin 3.3 L (3.5-5.0) g/dL Globulin 3.0 (1.7-4.1) g/dL Albumin/Globulin Ratio 1.1 (1.0-2.8) Urine Color Yellow Urine Appearance Clear Urine pH 7.0 (4.5-8.0) Ur Specific [place] 1.015 (1.000-1.035) Urine Protein Negative (Negative) Urine Glucose (UA) 1+ H (Negative) g/dL Urine Ketones 2+ H (NEGATIVE) Urine Occult Blood Negative (Negative) Urine Nitrate Negative (Negative) Urine Bilirubin Negative (NEGATIVE) Urine Urobilinogen 0.2 (0.2) E.U./dL Ur Leukocyte Esterase Negative (NEGATIVE) 12/23/19 12/23/19 Range/Units 17:23 17:23 WBC (4.5-11.0) X10^3/uL RBC (4.5-5.9) X10^6/uL Hgb (13.5-17.5) g/dL Hct (41-53) % MCV (80-100) fL MCH (26-34) PG MCHC (30-36) % RDW (11.6-14.8) % Plt Count (150-400) X10^3/uL Neut % (Auto) (50-75) % Lymph % (Auto) (25-40) % [place] % (Auto) (3-14) % Eos % (Auto) (2-4) % Baso % (Auto) (0-2) % Neut # (Auto) (4446-7685) /uL Lymph # (Auto) (5779-4110) /uL [place] # (Auto) (0-900) /uL Eos # (Auto) (0-450) /uL Baso # (Auto) (0-100) /uL ESR 64 H (0-15) MM/HR Sodium (137-145) mmol/L Potassium (3.4-5.1) mmol/L Chloride (98-107) mmol/L Carbon Dioxide (22-32) mmol/L BUN (9-20) mg/dL Creatinine (0.66-1.25) mg/dL Estimated GFR (>60) mL/min BUN/Creatinine Ratio (6-22) Glucose (80-110) mg/dL Calcium (8.4-10.2) mg/dL Total Bilirubin (0.2-1.3) mg/dL AST (17-59) IU/L ALT (<50) IU/L Alkaline Phosphatase (38-126) U/L Total Creatine Kinase 45 L (55-170) U/L C-Reactive Protein 3.9 H (<1.0) mg/dL Total Protein (6.3-8.2) g/dL Albumin (3.5-5.0) g/dL Globulin (1.7-4.1) g/dL Albumin/Globulin Ratio (1.0-2.8) Urine Color Urine Appearance Urine pH (4.5-8.0) Ur Specific [place] (1.000-1.035) Urine Protein (Negative) Urine Glucose (UA) (Negative) g/dL Urine Ketones (NEGATIVE) Urine Occult Blood (Negative) Urine Nitrate (Negative) Urine Bilirubin (NEGATIVE) Urine Urobilinogen (0.2) E.U./dL Ur Leukocyte Esterase (NEGATIVE) Urine Dip Bedside Urine Glucose 1000 mg/dl Bedside Urine Bilirubin - Negative Bedside Urine Ketone +++ 80 Urine Specific [place] 1.015 Bedside Urine Occult Blood - Negative Bedside Urine pH 7.0 Bedside Urine Protein + 30 Bedside Urine Urobilinogen - Negative Bedside Urine Nitrite - Negative Bedside Urine Leukocytes - Negative Esterase Discharge Plan Departure Patient Disposition: Admitted as Observation Clinical Impression: Back pain Qualifiers: Back pain location: low back pain Chronicity: unspecified Back pain laterality: midline Sciatica presence: unspecified whether sciatica present Qualified Code(s): M54.5 - Low back pain Discharge Date/Time: 12/23/19 18:12 Referrals: Seema Arguello MD [Physician] - Admit Date/Time: 12/23/19 17:33 Admit Provider: Seema Arguello
[2019-12-23] MEDS: CYCLOBENZAPRINE 10 MG TABLET PO (12:40)
[2019-12-23] MEDS: HYDROMORPHONE 1 MG INJ 0.5 MG IV (12:40)
[2019-12-23] MEDS: SODIUM CHLORIDE 0.9% 1,000 ML 1000 ML IV (12:40)
[2019-12-23 13:52] LABS: Appearance Urine UA CLEAR; Bilirubin Urine UA NEGATIVE (NEGATIVE); Color Urine UA YELLOW; Glucose Urine UA 1+ g/dL (Negative); Ketones Urine UA 2+ (NEGATIVE); Leukocyte Esterase Urine UA NEGATIVE (NEGATIVE); Nitrite Urine UA NEGATIVE (Negative); Occult Blood Urine UA NEGATIVE (Negative); Protein Urine UA NEGATIVE (Negative); Specific Gravity Urine UA 1.015 (1.000-1.035); Urobilinogen Urine UA 0.2 E.U./dL (0.2)
[2019-12-23] MEDS: HYDROMORPHONE 0.5 MG INJ IV (14:25)
[2019-12-23] MEDS: diazePAM 10 MG/2 ML SYRINGE 5 MG IV (16:52)
[2019-12-23] MEDS: KETOROLAC 60 MG/2 ML VIAL 30 MG IV (16:52)
[2019-12-23] MEDS: methylPREDNISolone 125 MG/2 ML VIAL IV (16:52)
[2019-12-23] MEDS: HYDROMORPHONE 1 MG INJ IV (16:53)
[2019-12-23 17:30] VITALS: BP 138/74; PULSE 73; RESP 16; O2SAT 97
[2019-12-23 17:30] LABS: Add Manual Diff / Slide Review NO; Basophils Absolute Auto 100 /uL (0-100); Basophils Percent Auto 0.9 % (0-2); Eosinophils Absolute Auto 100 /uL (0-450); Eosinophils Percent Auto 1.3 % (2-4); Hemoglobin 9.6 g/dL (13.5-17.5); Lymphocytes Absolute Auto 1800 /uL (1100-4500); Lymphocytes Percent Auto 28.4 % (25-40); Mean Corpuscular HGB Conc 35.5 % (30-36); Mean Corpuscular Volume 87.3 fL (80-100); Monocytes Absolute Auto 400 /uL (0-900); Neutrophils Absolute Auto 3900 /uL (1500-7000); Neutrophils Percent Auto 62.4 % (50-75); Platelet Count 246 X10^3/uL (150-400); Red Blood Cell Count 3.09 X10^6/uL (4.5-5.9); Red Cell Distribution Width 12.9 % (11.6-14.8); White Blood Cell Count 6.3 X10^3/uL (4.5-11.0)
[2019-12-23 17:42] LABS: Alanine Aminotransferase 11 IU/L (<50); Albumin 3.3 g/dL (3.5-5.0); Albumin Globulin Ratio 1.1 (1.0-2.8); Alkaline Phosphatase 63 U/L (38-126); Aspartate Aminotransferase 13 IU/L (17-59); Bilirubin Total 0.3 mg/dL (0.2-1.3); Blood Urea Nitrogen 14 mg/dL (9-20); Calcium 8.8 mg/dL (8.4-10.2); Carbon Dioxide 23 mmol/L (22-32); Chloride 103 mmol/L (98-107); Estimated Glomerular Filt Rate > 60.0 mL/min (>60); Glucose 232 mg/dL (80-110); HEMOLYSIS < 15 (0-50); Potassium 3.5 mmol/L (3.4-5.1); Sodium 135 mmol/L (137-145); Total Protein 6.3 g/dL (6.3-8.2)
[2019-12-23 17:46] LABS: C-Reactive Protein Quant 3.9 mg/dL (<1.0); Creatine Kinase 45 U/L (55-170)
[2019-12-23 17:50] LABS: Erythrocyte Sedimentation Rate 64 MM/HR (0-15)
[2019-12-23 18:05] VITALS: BP 176/80; PULSE 61; RESP 18; TEMP 37.4; O2SAT 95
[2019-12-23 18:13] VITALS: BMI 16.6
[2019-12-23 20:05] VITALS: BP 153/80; PULSE 72; RESP 16; TEMP 36.9; O2SAT 99
[2019-12-23] MEDS: GABAPENTIN 300 MG CAPSULE PO (21:16)
[2019-12-23] MEDS: OXYCODONE IR 10 MG TABLET PO (21:16)
[2019-12-23] MEDS: DOCUSATE 100 MG CAPSULE PO (21:16)
[2019-12-23] MEDS: ACETAMINOPHEN 325 MG TABLET 975 MG PO (21:16)
[2019-12-23] MEDS: METFORMIN HCL 500 MG TABLET 1000 MG PO (21:17)
[2019-12-23] MEDS: SODIUM CHLORIDE 0.9% 1,000 ML 125 ML IV (21:17)
[2019-12-23] MEDS: KETOROLAC 30 MG/ML VIAL IV (22:30)
--- NOTE | 2019-12-23 23:44 | PC.NURSE ---
Admit note: Klever brought from ER via gurney, assisted onto bed via slider board. VS stable, hypertensive. Reports pain to back is getting better. Reports good relief after pain medications given in ER. RA oxygen 96-98% No wounds or skin issues. Drsg to back is CDI, said I had to add a bit of tape to it. IVF infusing. I notified Dr Arguello I was missing admitting orders such as patient diet, VS, SCD's, CBG's, etc. Orders provided. He wanted to clarify that PT eval was ordered for AM, I confirmed that yes the PT eval order was in the chart. CBG 232, meal provided, PO metformin given per Dr orders & patient routine, although pt refused entire 1000 mg dose, took 500 mg which he says is what he normally takes. He said if I take the whole amt I get the worst diarrhea. Patient oriented x 3 & situation, reports knows how to use nurse call button. Patient instructed to call staff for any needs/concerns. Bed alarm active for safety.
[2019-12-24 00:17] VITALS: BP 146/82; PULSE 80; RESP 16; TEMP 36.7; O2SAT 100
[2019-12-24] MEDS: SODIUM CHLORIDE 0.9% 1,000 ML 125 ML IV ×2 (04:13→13:24)
[2019-12-24] MEDS: KETOROLAC 30 MG/ML VIAL IV ×2 (05:54→14:20)
[2019-12-24 06:18] VITALS: BP 151/80; PULSE 85; RESP 16; TEMP 37; O2SAT 100
[2019-12-24] MEDS: OXYCODONE IR 10 MG TABLET PO ×2 (08:54→14:21)
[2019-12-24] MEDS: METFORMIN HCL 500 MG TABLET 1000 MG PO (08:55)
[2019-12-24] MEDS: GABAPENTIN 300 MG CAPSULE PO (08:55)
[2019-12-24] MEDS: TAMSULOSIN 0.4 MG CAPSULE PO (08:55)
[2019-12-24] MEDS: predniSONE 20 MG TABLET 60 MG PO (08:55)
[2019-12-24] MEDS: ASPIRIN EC 81 MG TABLET PO (08:56)
[2019-12-24] MEDS: ATORVASTATIN 10 MG TABLET PO (08:56)
[2019-12-24] MEDS: glipiZIDE XL 5 MG TAB 10 MG PO (08:56)
[2019-12-24] MEDS: INSULIN GLARGINE 100 UNIT/ML 3ML PEN 16 UNIT SUBCUT (08:59)
[2019-12-24] MEDS: LEVOTHYROXINE 50 MCG TABLET PO (10:03)
[2019-12-24] MEDS: diazePAM 5 MG TABLET PO (10:11)
[2019-12-24 10:28] VITALS: BP 146/83; PULSE 75; RESP 16; TEMP 37; O2SAT 100
--- NOTE | 2019-12-24 10:54 | PT.IIE ---
Surgical History (Last Reviewed 12/23/19 @ 12:41 by Chava Guzman MD) S/P CABG x 5 (Acute ~2002) Stented coronary artery (Acute ~1996) Medical History (Last Reviewed 12/23/19 @ 12:40 by Chava Guzman MD) Coronary artery disease (Acute) Current every day smoker (Acute) Diabetes (Acute) DKA (diabetic ketoacidosis) (Acute 11/2018) Esophageal polyp (Acute ~10/2018) Herniated disc (Acute) High cholesterol (Acute) HLD (hyperlipidemia) (Acute) HTN (hypertension) (Acute) Hypothyroid (Acute) Iron deficiency anemia (Acute) Lumbar spine pain (Acute) Peripheral polyneuropathy (Acute) Severe protein-calorie malnutrition (Acute) Physical Therapy Inpatient Evaluation/Re-Eval M1 PT/OT-IP Prior Functional Status Start: 12/24/19 08:26 Freq: NEEDED Status: Active Protocol: Document 12/24/19 10:31 (Rec: 12/24/19 10:53 [id number]) Medical Review Prior Functional Status Medical History Reviewed Yes Communication no deficits noted. ABle to make needs known Mobility and Gait Prior to his 1st back sx , independent for all mobility and used SPC <5% of the time. Pt's used W/C to get pt from car to boat dock after his sx. Activities of Daily Living and IADL's prior to his 1st back sx , independent for all ADLs and IADLs but poor endurance as stated. Washing his hair/ overhead activities tend to be slightly difficult. Social History Household Members spouse Living Arrangements RV Number of Stairs To Enter/Railing? 12' step down and 12' step up to boat deck. 6 circular steps down to state room/ living quaters with handholds nearby at all points./ Home Environment Standard Height Toilet,Walk in Shower Home Equipment Four Wheel Walker,Straight Cane,Raised Toilet Seat Without Armrests,Hand Held Shower,Grab Bars In Shower Employment Status Retired Additional Social History Comment Pt lives on a boat with his , Effie. Both are retired. They have lived on their boat for over 2 years. Pt describes Effie as healthy and able to assist as needed. Pt had a laminectomy 12/17/19 and returned home on Sunday but he somehow felt a pop while he was sitting on a low level couch and he felt very painful at his back and leg since then. M2 PT-IP Current Condition Start: 12/24/19 08:26 Freq: NEEDED Status: Active Protocol: Document 12/24/19 10:31 (Rec: 12/24/19 10:53 [email or web address]) Physical Therapy Current Condition Current Condition Evaluation Date 12/24/19 Treatment Diagnosis severe back pain s/p laminectomy 12/17/19, difficulty in walking Onset Date 3 days ago Precautions Lumbar Precautions Log Roll,No Twisting,Limit Bending,Lifting Restriction of 10 lbs,Gait Belt above Incisional Area Weight Bearing Status Weight Bearing Status Weight Bear as Tolerated M3 PT-IP Subjective Start: 12/24/19 08:26 Freq: NEEDED Status: Active Protocol: Document 12/24/19 10:31 (Rec: 12/24/19 10:53 [email or web address]) Subjective Physical Therapy Visit Type Type Initial Evaluation Visit Start Time 09:25 Visit Stop Time 09:50 Total Visit Minutes 25 Notes at bedside (Effie) Number of ROTARY DRIER Visits 0 Physical Therapy Visit Comments Patient Comments It has been very painful for the past few days and i havent felt like that before. Patient Goals To return to his boat once his pain is managed. Therapy Pain Assessment Pain When Pain Assessed During Exercise Pain Present Pain Present Pain Reported Location Lower Back Intensity 5 Scale Used Numeric (1 - 10) Description Aching Pain Management Techniques Apply Cold,Distraction,Timing of Activity with Medications M4 PT-IP Mobility and Gait Start: 12/24/19 08:26 Freq: NEEDED Status: Active Protocol: Document 12/24/19 10:31 (Rec: 12/24/19 10:53 [email or web address]) PT-Bed Mobility Assessment Rolling Type of Rolling Log Rolling,Roll to Right Level of Assist Minimal Assistance Supine to Sit Supine to Sit Minimal Assistance,Bedrails Scooting Scooting to Edge of Bed Contact Guard Assistance PT-Transfer Assessment Sit to and From Stand Sit to and from Stand Contact Guard Assistance,Use of Upper Extremities Equipment Transfer Assistive Device Gait Belt,Front Wheeled Walker Orthotic/Prosthetic Devices or Brace: No Transfers Transfer Destination Bed,Chair Transfer Technique amb with FWW Transfer Ability Level of Assist Contact Guard Assistance Comments Mobility Comments Pt was in bed upon assessment. Denies pain on LEs. Pt completed half log roll to R side only and was unable to get his R elbow underneath his body. He then did half SL to sit with excessive trunk flexion which increases his back pain slightly. He sat up and able to scoot towards EOB but slowly. He completed sit to stand with FWW and amb to hallway and returned to chair for approx 80 feet. Pt amb very slowly with step to pattern and FWW, along with flexed trunk and needed often cues for maintaining uprgiht position. Pt reports his pain is slightly less while standing/ walking. Pt returned to chair after with pillows for back and hip support. Pt rested in chair comfortably with call light within reach. Gait Assessment Gait Gait Assistance Required: Contact Guard Assist Distance (Feet) 80 Able to Maintain Weight Bearing Status Yes During Gait Assistive Devices Assistive Device Gait Belt,Front Wheeled Walker Orthotic/Prosthetic Devices or Brace: No Gait Deviations General Gait Pattern Antalgic,Decreased Stride Length,Decreased Feet Clearance,Flexed Trunk,Step-to Gait Factors Limiting Gait Function Factors Limiting Gait Function Decreased Activity Tolerance, Decreased Strength,Limited Range of Motion,Pain,Poor Balance,Poor Safety Awareness Comments Gait Comments see mobility comments Stair Climbing Assessment Comments Stair Climbing Comments unable to perform PT-Balance Assessment Sitting Balance and Reactions Static Sitting Balance Ability Normal Dynamic Sitting Balance Ability Normal Standing Balance and Reactions Static Standing Balance Ability Good Dynamic Standing Balance Ability Good Device Used FWW M5 PT-IP Objective Assessments Start: 12/24/19 08:26 Freq: NEEDED Status: Active Protocol: Document 12/24/19 10:31 (Rec: 12/24/19 10:53 [email or web address]) Orientation Orientation/Cognition Level of Alertness Alert Orientation Name,Age,Birthday,Month,Date, Year,Day of Week,Place, Situation Language Function Ability No Deficits Noted Safety Awareness Understands Safety Issues Memory Description No Deficits Noted Gross Range of Motion Upper Extremity ROM Assessment Within Functional Limits Lower Extremity ROM Assessment Within Functional Limits Strength Upper Extremity Strength Assessment Within Functional Limits Lower Extremity Strength Assessment Bilaterally Impaired Hip 4-/5 Knee 4-/5 Coordination Assessment Gross Coordination Gross Coordination WNL Sensation Assessment Sensation Gross Sensation WNL Light Touch Intact Proprioception (Position) Intact Muscle Tone Muscle Tone WNL Yes M6 PT-IP Treatment Start: 12/24/19 08:26 Freq: NEEDED Status: Active Protocol: Document 12/24/19 10:31 (Rec: 12/24/19 10:53 [email or web address]) Physical Therapy Treatment Exercises Exercises Ankle Pumps,Gluteal Sets,Quad Sets,Heel Slides Education Education Provided Precautions,Weight Bearing Status,Post-Op Packet,Safety M7 PT-IP Assessment and Plan Start: 12/24/19 08:26 Freq: NEEDED Status: Active Protocol: Document 12/24/19 10:31 (Rec: 12/24/19 10:53 [email or web address]) PT Summary Assessment and Plan Potential Rehabilitation Potential Good Status of Condition at Evaluation Evolving Summary Impairments Pain,ROM,Strength,Balance,Bed Mobility,Transfers,Gait, Activity Tolerance Assessment Summary Pt is a low complexity s/p POD 7 lumbar laminectomy (12/17/19 ). Pt had a episode of feeling a pop at his low back which instantly aggravated his LBP and shooting pain to leg on Sunday. Pt stated he was sitting on a low level couch which possibly placed him in a excessive lumbar flexion position. Pt reported feeling slightly better today but he was overall slower for mobility / transfers with CGA, along with poor endurance. Pt had difficulty completeing a full log roll and supine to sit and will cont need skilled therapy to address that and attempt step training in order for him to be safe to go home with 's assistance. Will cont monitor pt's progress at this point but he might need skilled rehab/ Home health if he did not reach rehab goals. and nursing also reported pt has not been eating much recently and PT recommended that to improve his energy level. Goals Bed Mobility Goal Standby Assistance Transfer Goal Standby Assistance,Front Wheeled Walker Gait Goal Standby Assistance,Front Wheel Walker Gait Distance 300 Other Goals 12' step down and 12' step up to boat deck. 6 circular steps down to state room/ living quaters with handholds nearby at all points./ Days to Meet Goals 5 Frequency of Treatment Frequency Of Treatment Twice a Day Treatment Plan Physical Therapy Treatment Plan Bed Mobility Training,Transfer Training,Gait Training, Therapeutic Exercise,Balance Retraining,Post Op Education, Discharge Planning,Hot or Cold Pack,Neuromuscular Re-ed Other Recommendations and Next Treatment mobility as tolerated Focus review log roll step if possible Recommendations To Nursing Amount of Assist Needed 1 Person Assist Discharge Recommendations PT Discharge Recommendations Home with 18/06 Assist,Home Health,SNF Rehab Transportation Needs at Discharge Private Vehicle
--- NOTE | 2019-12-24 11:49 | DIET.PN ---
Dietary Progress Note Assessment: 64y M readmitted s/p L4-5 laminectomy referred to nutrition for low BMI and 40# wt loss in 3y. Please find note from last admit below, will start ONS glucerna tid now, and possibly add blueberry pro smoothie depending on tolerance, pt preference: Pt interested in ways to increase pt's body weight and muscle strength being mindful of his DM2. Pt and live in [address] [facility]. Pt has been wt stable at 16.4 BMI for past year, and can't seem to put on weight. On a good day pt eats toast c PB and 2% milk, on a bad day, no food or one bite of scrambled eggs. Pt started tx for hypothyroid 1mo ago and appetite has increased recently. DM2 is well controlled att. HT: 175.2cm WT: 50.2kg UBW: 68kg (-26% in 3y) BMI: 16.4 (severe for age) Labs: A1c 7 MNA: 8 Medhat: 19 Nutrition Diagnosis: Chronic Severe PCM r/t untreated hypothyroid, px c px med use aeb 26% unintentional wt loss in 3y, BMI 16.4 (severe for age), system wide severe muscle and subcutaneous fat loss. Interventions: 1. Problem solved meal planning c Pt and based on pt preferences and using boat kitchen prioritizing lean proteins and healthy fats. 2. Recc ONS blueberry protein smoothie c lunch to be consumed as afternoon snack. Diet Order: CCD EER: 2,000kcal (+200 for wt gain), 65g PRO (1.3g/kg per malnutrition), 1.8L fluids Monitoring/Evaluations: ONS tolerance, further education as desired
[2019-12-24 12:55] VITALS: BP 147/83; PULSE 73; RESP 16; TEMP 36.8; O2SAT 98
--- NOTE | 2019-12-24 14:59 | CM.DANOTE ---
Patient is a 64 year old male READMIT on 12/23/19 for Severe back pain. Pt has [facility] and [employer] for insurance and his PCP is Dr. Yaa Garcia. EMR was reviewed. Per Abby NGUYEN, pt had hardwire repair need after hearing a pop and having extreme pain after recently discharging home to boat on 12/21/19. Pt seems medically stable to d/c home without SNF but would benefit from HH. SW met bedside with pt, spouse, PT, and Ortho PA and reviewed pics of boat and what needed to get into the boat and discussed options of SNF vs HH. Pt and spouse both feel HH would be helpful but that SNF not needed. PT working with pt to model what would be needed to get on and off the boat prior to d/c and with CG training. SW provided the HH Choice List and no preference and SW made referral to [facility] based on Vendor Calendar and called [facility] liaison and confirmed that living on a boat is not a barrier to HH especially as pt's boat is not small or a sailboat. SW faxed clinicals, MD Dora orders to [facility] to review and provided the [facility] brochure to spouse. Plan: Patient to likely d/c home to boat at [facility] today via spouse POV and [facility] to open pt to service until he can safely return to his established outpt PT. MANJULA Sahu Discharge Planning/Care Management CM Discharge Assessment Start: 12/24/19 14:57 Freq: Status: Active Protocol: Document 12/24/19 14:57 BF (Rec: 12/24/19 14:59 BF [id number]) Discharge Planning Assessment Assigned [employer] KALIE Welsh DPOA/Assigned Designee Name SpouseEffie Contact Information [phone] Advance Directives? Yes Advance Directives on File Yes History Provided By Patient,Significant Other, Medical Record Has Patient been admitted in last 30 Yes days? Comment Last discharged after back surgery on 12/21/19 to home/ boat Comment Lives on a large boat Household Members spouse Type of transporation used prior to Relies on Others admit Independent with ADL's No Is patient alert and oriented? Yes Needs Assistance With Bathing,Home Chores / Shopping Caregiver for Another No DME Already Rented / Owned Wheelchair,FWW / Walker Patient/Family Preference Home with Home Health Barriers to Discharge No Comment As of now, no barriers. Discharge Plan Home with Home Health Transportation Arrangement Spouse Referrals Initiated Home Health If patient plan is home with home health Yes : Has signed face to face form been completed? Medicare Choice List Provided Yes SNF/HH Preference [facility] Whiteboard Updated in Patient Room with Yes name and ext. # of [employer] Review Status In Process Please Provide Date Initial DC 12/24/19 Assessment Was Performed Next Review Type Continued Stay Review
--- NOTE | 2019-12-24 15:14 | PC.NURSE ---
Pt has worked with P.T. and cleared for discharge back to his boat with spouse. IV has been removed. Pt dressing to back has been changed. Went over d/c instructions with Spouse-discussed d/c meds, time of last dose, reviewed stroke education, signs and symptoms of infection and when to call MD. Pt has spoken with Care Management and has information about Home Health. Pt will be taken out via w/c by [facility] to POV with Spouse and all belongings.
--- NOTE | 2019-12-24 15:34 | PT.IPTN ---
Physical Therapy Treatment Note M2 PT-IP Current Condition Start: 12/24/19 08:26 Freq: NEEDED Status: Discharge Protocol: Document 12/24/19 10:31 HH (Rec: 12/24/19 10:53 [email or web address]) Physical Therapy Current Condition Current Condition Evaluation Date 12/24/19 Treatment Diagnosis severe back pain s/p laminectomy 12/17/19, difficulty in walking Onset Date 3 days ago Precautions Lumbar Precautions Log Roll,No Twisting,Limit Bending,Lifting Restriction of 10 lbs,Gait Belt above Incisional Area Weight Bearing Status Weight Bearing Status Weight Bear as Tolerated M3 PT-IP Subjective Start: 12/24/19 08:26 Freq: NEEDED Status: Discharge Protocol: Document 12/24/19 14:34 JUNI (Rec: 12/24/19 15:34 LJ [email or web address]) Subjective Physical Therapy Visit Type Type Treatment Note Visit Start Time 14:34 Visit Stop Time 15:06 Total Visit Minutes 32 Notes at bedside (Effie) Physical Therapy Visit Comments Patient Comments Pt wants to go home today Therapy Pain Assessment Pain When Pain Assessed During Mobility Pain Present Pain Present Pain Reported Location Lower Back Intensity 5 Scale Used Numeric (1 - 10) Description Aching Pain Management Techniques Apply Cold,Distraction,Timing of Activity with Medications M4 PT-IP Mobility and Gait Start: 12/24/19 08:26 Freq: NEEDED Status: Discharge Protocol: Document 12/24/19 14:34 JUNI (Rec: 12/24/19 15:34 LJ [email or web address]) PT-Bed Mobility Assessment Rolling Type of Rolling Log Rolling,Roll to Right Level of Assist Minimal Assistance Supine to Sit Supine to Sit Minimal Assistance,Bedrails Scooting Scooting to Edge of Bed Standby Assistance PT-Transfer Assessment Sit to and From Stand Sit to and from Stand Standby Assistance,Use of Upper Extremities Equipment Transfer Assistive Device Gait Belt,Front Wheeled Walker Orthotic/Prosthetic Devices or Brace: No Transfers Transfer Destination Chair Transfer Technique amb with FWW Transfer Ability Level of Assist Contact Guard Assistance Comments Mobility Comments Pt in bed. Nursing in room administering pain meds. Pt completed log roll to right and push hhimself up with assist from therapist. Pt kept back straighter but still was flexed at trunk slightly when sitting up from sidelying. Pt scooted to EOB SBA and used UEs to ;ush into FWW to standing. Returning to seat after trialing how he was going to get onto his boat pt returned to the chair and performed a straight back hip hinge to sit into chair with using his UEs to lower himself into chair. Gait Assessment Gait Gait Assistance Required: Standby Assistance,Contact Guard Assist Distance (Feet) 25 Able to Maintain Weight Bearing Status Yes During Gait Assistive Devices Assistive Device Gait Belt,Front Wheeled Walker Orthotic/Prosthetic Devices or Brace: No Gait Deviations General Gait Pattern Antalgic,Decreased Stride Length,Decreased Feet Clearance,Flexed Trunk,Step-to Gait Factors Limiting Gait Function Factors Limiting Gait Function Decreased Activity Tolerance, Decreased Strength,Limited Range of Motion,Pain,Poor Balance,Poor Safety Awareness Comments Gait Comments Most of his gait was trialing getting onto the boat going up and down platform step to simulate situation going from the dock to the swim step of the boat then onto the aft deck where he had access to his living quarters where he will be sleeping and spending the majority of his time Stair Climbing Assessment Evaluation Level of Assist On Stairs Moderate Assistance,1 Person Assistance Devices Stair Climbing Assistive Devices Right Railing Technique/Endurance Stair Climbing Direction Ascend and Descend Stair Climbing Technique Step to Step Number of Steps Climbed 1 Comments Stair Climbing Comments Situation was set up in room to simulate how the boat swim step is situated in relation to the dock. Pt used the FWW to step up onto the platform step (dock). He then used the sink counter top (boat railing by swim step) and assist of in front to step down from platform step (dock) to floor (swim step). He then turned to face the sink which is where there is a smll step which he uses to get onto the aft deck with railings on both sides. He repeated this proceedure x2. was assisting and pt was able to follow directions and move within his precautions. M5 PT-IP Objective Assessments Start: 12/24/19 08:26 Freq: NEEDED Status: Discharge Protocol: Document 12/24/19 10:31 (Rec: 12/24/19 10:53 [email or web address]) Orientation Orientation/Cognition Level of Alertness Alert Orientation Name,Age,Birthday,Month,Date, Year,Day of Week,Place, Situation Language Function Ability No Deficits Noted Safety Awareness Understands Safety Issues Memory Description No Deficits Noted Gross Range of Motion Upper Extremity ROM Assessment Within Functional Limits Lower Extremity ROM Assessment Within Functional Limits Strength Upper Extremity Strength Assessment Within Functional Limits Lower Extremity Strength Assessment Bilaterally Impaired Hip 4-/5 Knee 4-/5 Coordination Assessment Gross Coordination Gross Coordination WNL Sensation Assessment Sensation Gross Sensation WNL Light Touch Intact Proprioception (Position) Intact Muscle Tone Muscle Tone WNL Yes M6 PT-IP Treatment Start: 12/24/19 08:26 Freq: NEEDED Status: Discharge Protocol: Document 12/24/19 14:34 JUNI (Rec: 12/24/19 15:34 LJ [email or web address]) Physical Therapy Treatment Education Education Provided Precautions,Safety M7 PT-IP Assessment and Plan Start: 12/24/19 08:26 Freq: NEEDED Status: Discharge Protocol: Document 12/24/19 14:34 LJ (Rec: 12/24/19 15:34 LJ [email or web address]) PT Summary Assessment and Plan Potential Rehabilitation Potential Good Status of Condition at Evaluation Evolving Summary Impairments Pain,ROM,Strength,Balance,Bed Mobility,Transfers,Gait, Activity Tolerance Assessment Summary Pt was able to perform log roll with Kasia for sidelying to sitting. he still flexed hes trunk slightly. Pt is kyphotic and needs cueing to stand straight. He was able to adhere to his precautions when trialing getting into his boat with assistance. Will be able to d/c this afternoon with home health Goals Bed Mobility Goal Standby Assistance Transfer Goal Standby Assistance,Front Wheeled Walker Gait Goal Standby Assistance,Front Wheel Walker Gait Distance 300 Days to Meet Goals 5 Frequency of Treatment Frequency Of Treatment Twice a Day Treatment Plan Physical Therapy Treatment Plan Bed Mobility Training,Transfer Training,Gait Training, Therapeutic Exercise,Balance Retraining,Post Op Education, Discharge Planning,Hot or Cold Pack,Neuromuscular Re-ed Recommendations To Nursing Amount of Assist Needed 1 Person Assist Discharge Recommendations PT Discharge Recommendations Home with 18/06 Assist,Home Health Transportation Needs at Discharge Private Vehicle
--- NOTE | 2019-12-24 17:40 | PM.DS.1 ---
History of Present Illness History of Present Illness Date Patient Seen: 12/24/19 Time Patient Seen: 02:00 Chief complaint: Severe back pain s/p lumbar proc 1 week ago Narrative: Please see HPI in Summary section of this note. Discharge Providers Provider Date of admission: 12/23/19 17:33 Discharge Date: 12/24/19 Primary care physician: Yaa Garcia MD Consults: 12/23/19 18:12 Consult to Physical Therapy Evaluate & Treat Comment: Physician Instructions: Evaluate and Treat 12/24/19 15:19 Consult to Home Health Routine Comment: Laminectomy Reason For Exam: Set up RN/PT/OT for discharge 12/24/19 Discharge provider: Christine Ott PA-C Summary Hospital Course Discharge Diagnosis: Severe lower back pain POD #6 s/p L4-S1 decompression and L5-S1 fusion Severe protein-calorie malnutrition coronary artery disease hypertension thyroid disease diabetes diabetic ketoacidoses Hospital Course: 12/23/2019 - POD#6 s/p L4-S1 decompression and L5-S1 fusion by Dr. Arguello ; patient was admitted by Dr. Arguello from the ED for pain management. Patient was ambulating at home when he felt a pop in his back and felt severe pain. Per patient he had previously been doing well with good control of pain. In ED patient was given IV dilaudid, ketorolac, methypredisone, diazepam. Today, patient states his pain is under control and improved since last night, rates 4/10 at rest. Pain is managed with oxycodone 10mg, toradol, prednisone, gabapentin, diazepam. Voiding without difficulty. Mobilizing with PT. Denies fever, chills, chest pain, shortness of breath, pain in calves, numbness, tingling, urinary/bowel incontinence. Patient is ready for discharge home with home health assistance. Per patient, has wheel chair to use as needed for transport to boat from car (300 feet). Has prescription for dilaudid filled at home. Will follow up in clinic for scheduled 2-week post op appointment. Will call office as needed for any issues or questions. Exam Vital Signs (past 8 hours): - 12/24/19 10:28 12/24/19 12:55 Temperature 98.6 F 98.2 F Pulse Rate 75 73 Respiratory Rate 16 16 Blood Pressure 146/83 H 147/83 H Pulse Oximetry 100 98 Oxygen Delivery Method Room Air Oxygen Flow Rate 0 Narrative Exam Narrative: 64 year old male is laying comfortably in bed, in no apparent distress. A&Ox3. Dressing is CDI. SCDs in place. Able to actively dorsiflex/plantar flex LE BL. Sensory function grossly intact to light touch in LE BL. Dorsalis pedis 2+ BL. Calves warm, soft, compressible, non tender to palpation. Objective Labs Result Diagrams: 12/23/19 17:23 12/23/19 17:23 Labs: Laboratory Results - last 24 hr 12/23/19 12/23/19 12/23/19 17:23 17:23 17:23 ESR 64 H Sodium 135 L Potassium 3.5 Chloride 103 Carbon Dioxide 23 BUN 14 Creatinine 0.70 Estimated GFR > 60.0 BUN/Creatinine Ratio 20.0 Glucose 232 H Calcium 8.8 Total Bilirubin 0.3 AST 13 L ALT 11 Alkaline Phosphatase 63 Total Creatine Kinase 45 L C-Reactive Protein 3.9 H Total Protein 6.3 Albumin 3.3 L Globulin 3.0 Albumin/Globulin Ratio 1.1 Discharge Plan Discharge Plan Patient Disposition: Home Health Service Discharge orders & Medications Prescriptions: Continued glipizide 10 mg Tablet Extended Release 24hr 10 mg PO DAILY RF: 0 gabapentin 300 mg Capsule 300 mg PO BID RF: 0 levothyroxine 25 mcg Tablet 50 mcg PO DAILY RF: 0 tamsulosin [Flomax] 0.4 mg Capsule 0.4 mg PO DAILY Qty: 30 RF: 0 hydroxyzine pamoate 25 mg Capsule 50 mg PO Q4HR PRN (Reason: Muscle Spasm) Qty: 60 RF: 0 hydromorphone 2 mg Tablet 2 mg PO Q4H PRN (Reason: Pain, Moderate (4-6)) Qty: 40 RF: 0 atorvastatin 10 mg tablet 10 mg PO DAILY RF: 0 hydrocodone-acetaminophen 10-325 mg tablet 1 tab PO DAILY RF: 0 acetaminophen 500 mg Tablet 1,000 mg PO QID PRN (Reason: pain) RF: 0 docusate sodium [DOK] 100 mg capsule 100 mg PO BID PRN (Reason: Constipation) RF: 0 aspirin [Aspir-81] 81 mg Tablet,Delayed Release (Dr/Ec) 81 mg PO DAILY RF: 0 Iron Chews 15 mg Tablet,Chewable 30 mg PO DAILY RF: 0 metformin 500 mg tablet 1,000 mg PO BID RF: 0 insulin glargine 100 unit/mL (3 mL) insulin pen 16 unit subcut QAM RF: 0 Follow up/Referrals: Seema Arguello MD [Physician] - Diet/Activity/Treatments Diet: Diet as Tolerated Activity: No bending, lifting, or twisting. Log roll out of bed. Use front wheel walker or cane for fall prevention. Cold/Heat Therapy: Ice packs as needed. Allow skin to return to room temperature between icing. Skin/Wound/Dressing Care Report to your healthcare provider any signs of infection, such as:: chills, fever, night sweats, unusual drainage and unusual redness Dressing: Leave dressing in place until 2 week post operative visit. If dressing becomes saturated or soiled please call the office. Discharge Data Primary Care Provider: aYa Garcia Attending Provider: Seema Arguello Admit Date/Time: 12/23/19 17:33 Discharges patient from system. Discharge Date/Time: 12/24/19 15:22 Quality VTE Deep Vein Thrombosis/Pulmonary Embolism Present on Admission: No
--- NOTE | 2019-12-25 11:49 | CM.DPC ---
DCP Cont: Faxed discharge summary to [facility] at fax # [phone]. Fax confirmation scanned in. Fely Goodman, Care [employer] Worker
== END 2019-12-24 15:22 | disposition home health service (06) ==
LOC: ED 12:19 → AC 17:34
PROVIDERS: Admitting Provider Orthopaedic Surgery Orthopaedic Surgery of the Spine; Emergency Provider Emergency Medicine; PCP Internal Medicine; Visit Provider Orthopaedic Surgery Orthopaedic Surgery of the Spine
DX: M54.5 Low back pain (principal); Z98.890 Other specified postprocedural states; E11.10 Type 2 diabetes mellitus with ketoacidosis without coma; Z79.4 Long term (current) use of insulin; E78.00 Pure hypercholesterolemia, unspecified; Z95.1 Presence of aortocoronary bypass graft; E43 Unspecified severe protein-calorie malnutrition; I25.10 Atherosclerotic heart disease of native coronary artery without angina pectoris; I10 Essential (primary) hypertension; F17.210 Nicotine dependence, cigarettes, uncomplicated
CPT/HCPCS: 36415; 51798; 72100; 80053; 81003; 82550; 82962; 85025; 85651; 86140; 87086; 96361; 96372; 96374; 96375; 96376; 97161; 97530; 99284; G0378; J1170; J1885; J2930; J3360

== ENCOUNTER → 2020-04-14 09:25 | Outpatient (CLI) | payer MEDICARE, SELFPAY ==
[2020-04-14 11:44] LABS: Hemoglobin A1C% w Est Avg Glu 9.6 % (4.0-6.0)
[2020-04-14 11:52] LABS: BUN Creatinine Ratio 18.1 (6-22); Blood Urea Nitrogen 15 mg/dL (9-20); Calcium 9.7 mg/dL (8.4-10.2); Carbon Dioxide 26 mmol/L (22-32); Chloride 98 mmol/L (98-107); Estimated Glomerular Filt Rate > 60.0 mL/min (>60); Glucose 194 mg/dL (80-110); HEMOLYSIS < 15 (0-50); Potassium 4.1 mmol/L (3.4-5.1); Sodium 135 mmol/L (137-145)
[2020-04-14 12:35] LABS: TSH w/ Reflex to FT4 3.63 uIU/mL (0.47-4.68)
== END ==
PROVIDERS: PCP Internal Medicine; Referring Provider Internal Medicine; Visit Provider Internal Medicine
DX: E11.9 Type 2 diabetes mellitus without complications (principal); E03.9 Hypothyroidism, unspecified
CPT/HCPCS: 36415; 80048; 83036; 84443

== ENCOUNTER → 2020-07-21 13:52 | Outpatient (CLI) | payer MEDICARE, SELFPAY ==
[2020-07-21 15:18] LABS: Add Manual Diff / Slide Review NO; Basophils Absolute Auto 100 /uL (0-100); Eosinophils Absolute Auto 200 /uL (0-450); Eosinophils Percent Auto 2.2 % (2-4); Hematocrit 38.4 % (41-53); Hemoglobin 12.8 g/dL (13.5-17.5); Lymphocytes Absolute Auto 2500 /uL (1100-4500); Lymphocytes Percent Auto 31.5 % (25-40); Mean Corpuscular HGB Conc 33.4 % (30-36); Mean Corpuscular Hemoglobin 30.1 PG (26-34); Mean Corpuscular Volume 89.9 fL (80-100); Monocytes Absolute Auto 400 /uL (0-900); Neutrophils Absolute Auto 4800 /uL (1500-7000); Neutrophils Percent Auto 60.3 % (50-75); Platelet Count 231 X10^3/uL (150-400); Red Blood Cell Count 4.27 X10^6/uL (4.5-5.9); Red Cell Distribution Width 14.3 % (11.6-14.8)
[2020-07-21 15:28] LABS: Hemoglobin A1C% w Est Avg Glu 7.3 % (4.0-6.0)
[2020-07-21 15:55] LABS: Alanine Aminotransferase 11 IU/L (<50); Albumin 4.1 g/dL (3.5-5.0); Albumin Globulin Ratio 1.5 (1.0-2.8); Alkaline Phosphatase 86 U/L (38-126); Aspartate Aminotransferase 17 IU/L (17-59); BUN Creatinine Ratio 19.3 (6-22); Bilirubin Total 0.4 mg/dL (0.2-1.3); Blood Urea Nitrogen 17 mg/dL (9-20); Calcium 10.3 mg/dL (8.4-10.2); Carbon Dioxide 26 mmol/L (22-32); Chloride 101 mmol/L (98-107); Estimated Glomerular Filt Rate > 60.0 mL/min (>60); Globulin 2.7 g/dL (1.7-4.1); Glucose 152 mg/dL (80-110); HEMOLYSIS < 15 (0-50); Potassium 4.8 mmol/L (3.4-5.1); Sodium 135 mmol/L (137-145); Total Protein 6.8 g/dL (6.3-8.2)
[2020-07-21 16:08] LABS: Free T4, Direct Thyroxine 1.23 ng/dL (0.78-2.19)
[2020-07-21 16:22] LABS: Thyroid Stimulating Hormone 3.08 uIU/mL (0.47-4.68)
== END ==
PROVIDERS: PCP Internal Medicine; Referring Provider Internal Medicine; Visit Provider Internal Medicine
DX: E03.9 Hypothyroidism, unspecified (principal); E11.65 Type 2 diabetes mellitus with hyperglycemia; I10 Essential (primary) hypertension; I25.10 Atherosclerotic heart disease of native coronary artery without angina pectoris
CPT/HCPCS: 36415; 80053; 83036; 84439; 84443; 85025

== ENCOUNTER → 2021-08-12 10:41 | Outpatient (CLI) | payer MEDICARE, SELFPAY ==
--- NOTE | 2021-08-12 | DI.MRI.S_ITS ---
PROCEDURE: MR LUMBAR SPINE WO CON INDICATIONS: Other spondylosis with radiculopathy, lumbar region TECHNIQUE: Noncontrast sagittal T1 spin echo and T2 fast echo, coronal T2, sagittal STIR, axial T1 and T2 fast spin echo through the lumbar spine. COMPARISON: [facility], MR, MR LUMBAR SPINE WO CON, 03/28/2019, 8:50. FINDINGS: Image quality: Excellent. Alignment and Curvature: 5 lumbar type vertebral bodies are present by plain film. Mild grade 1 retrolisthesis of L4 on L5 and L5 on S1. Bone Marrow: Marrow is of normal overall signal. No acute vertebral body compression fractures. There is new posterior fusion hardware at L5-S1. Minimal reactive signal throughout the endplates of the lumbar and lower thoracic spine. Spinal Cord: Conus medullaris terminates at the lower L1 level. Visualized cord demonstrates normal signal and size. Paraspinous Soft Tissues: No paravertebral masses. T12-L1: Normal appearance. L1-L2: Moderate disc height loss and desiccation. Mild facet and ligamentum flavum hypertrophy. Mild canal stenosis. Mild bilateral foraminal stenosis. No significant change. L2-L3: Moderate disc desiccation. Mild diffuse disc bulge. Mild facet and ligamentum flavum hypertrophy. Mild canal stenosis. No foraminal stenosis. No significant change. L3-L4: Mild disc desiccation and diffuse disc bulge. Mild facet and ligamentum flavum hypertrophy. Mild epidural lipomatosis. Mild canal stenosis. Mild bilateral foraminal stenosis. No significant change. L4-L5: Mild disc height loss and desiccation. Mild diffuse disc bulge with small superimposed broad-based left far lateral protrusion. Mild facet and ligamentum flavum hypertrophy. Mild canal stenosis. No change in mild right foraminal stenosis. Increased, moderate left foraminal stenosis. L5-S1: Interbody device placement. Posterior fusion. Mild residual disc bulge/osteophyte. Mild bilateral facet hypertrophy. No significant canal stenosis. Decreased, moderate right and mild left foraminal stenosis. IMPRESSION: 1. Postsurgical sequelae. 2. Multilevel degenerative disc and facet disease, as well as ligamentum flavum hypertrophy and epidural lipomatosis. 3. Mild multilevel canal stenosis. 4. Multilevel foraminal stenoses, worst at L4-L5 and L5-S1 where there are moderate foraminal stenosis as described above. Dictated by: Anabel Rodríguez M.D. on 08/12/2021 at 11:32 Approved by: Anabel Rodríguez M.D. on 08/12/2021 at 11:49
== END ==
PROVIDERS: PCP Internal Medicine; Referring Provider Neurological Surgery; Visit Provider Neurological Surgery
DX: M47.26 Other spondylosis with radiculopathy, lumbar region (principal)
CPT/HCPCS: 72148